=== PATIENT | male | born 1980 | race Caucasian/White ===

== ENCOUNTER 2024-03-29 13:13 | Emergency (ER) | payer SELFPAY ==
--- NOTE | ~2024-03-29 | CT_ITS ---
EXAMINATION: CT ABDOMEN AND PELVIS WITH CONTRAST CLINICAL INFORMATION: RUQ/LUQ pain, N/V COMPARISON: None available. TECHNIQUE: Multidetector volumetric images were obtained from the superior aspect of the liver through the pubic symphysis following administration 85 mL of Omnipaque 350 intravenous contrast. Sagittal and coronal reformatted images were obtained on the technologist's workstation. Oral contrast: No This CT examination was performed using dose optimization techniques as appropriate, variously including the following: *Automated exposure control *Adjustment of mA and/or kV according to patient size (this includes techniques or standardized protocols for targeted exams where dose is matched to indication/reason for exam; i.e. extremities or head) *Use of iterative reconstruction technique DLP: 397 mGy-cm FINDINGS: LUNG BASES: Multiple thin-walled cysts at lung bases, left greater than right with bronchiectasis and architectural distortion of the parenchyma. No acute airspace disease. LIVER, GALLBLADDER, AND BILIARY TREE: Liver is enlarged measuring 22 cm superior-inferior. No focal liver lesion or intrahepatic bile duct dilatation. The gallbladder is unremarkable with no evidence of radiopaque gallstones, gallbladder wall thickening, or obvious pericholecystic inflammatory changes. PANCREAS: Unremarkable. SPLEEN: Unremarkable. ADRENAL GLANDS: Unremarkable. KIDNEYS AND URETERS: The kidneys are normal in size, shape, and attenuation. No hydronephrosis, hydroureter, or calculi seen. No perinephric stranding. BLADDER: Unremarkable. GASTROINTESTINAL TRACT: The small and large bowel are unremarkable. The appendix is unremarkable. ABDOMINAL WALL: No significant hernia is appreciated. LYMPH NODES: Normal. VASCULAR: Unremarkable. PELVIC VISCERA: Unremarkable. OSSEOUS STRUCTURES: Unremarkable. CT/CT abdomen pelvis w IV con IMPRESSION: 1. No acute abnormality CT scan abdomen pelvis. 2. Hepatomegaly. 3. Multiple thin-walled cysts at lung bases, left greater than right with bronchiectasis and architectural distortion of the parenchyma. No acute airspace disease. Fleischner guidelines were followed. Electronically signed by: Bhavesh Hughes MD 03/29/2024 11:11 PM EDT
--- NOTE | ~2024-03-29 | US_ITS ---
EXAMINATION: US ABDOMEN LIMITED CLINICAL INFORMATION: Upper abdominal pain, nausea/vomiting. COMPARISON: None available. TECHNIQUE: Real-time imaging of the right upper quadrant abdominal viscera. FINDINGS: GALLBLADDER: Gallbladder appears somewhat contracted. No gallstones identified. Borderline gallbladder wall thickening measuring 0.4 cm. No right upper quadrant tenderness was reported during the exam. COMMON BILE DUCT: Normal in caliber measuring 0.2 cm in diameter. US/US abdomen limited IMPRESSION: No gallstones identified. Borderline gallbladder wall thickening measuring 0.4 cm, of uncertain clinical significance as the gallbladder appears somewhat contracted. Electronically signed by: Nasim Bone MD 03/29/2024 11:07 PM EDT
--- NOTE | ~2024-03-29 | XR_ITS ---
EXAMINATION: XR CHEST CLINICAL INFORMATION: Chest pain COMPARISON: None available. TECHNIQUE: 2 views of the chest were obtained. FINDINGS: Chronic emphysematous change of the lungs with coarse bronchovascular markings in lungs bilaterally. No focal consolidation. No pleural effusion or pneumothorax. Heart size is normal. Cardiac and mediastinal contours are normal. XR/XR chest 2V IMPRESSION: Chronic emphysematous change of the lungs. No acute abnormality of chest. Electronically signed by: Bhavesh Hughes MD 03/29/2024 03:32 PM EDT RP
[2024-03-29 13:21] VITALS: BP 141/84; PULSE 84; RESP 18; TEMP 37.6; O2SAT 96; BMI 24.5
--- NOTE | 2024-03-29 13:23 | ED.NAVMDI ---
HPI - Nausea/Vomiting/Diarrhea General Chief complaint: General Medical Stated complaint: r side pain Time Seen by Provider: 03/29/24 19:48 Source: patient Mode of arrival: ambulatory Limitations: no limitations History of Present Illness HPI Narrative: Patient is a 43-year-old male who presents emergency department for evaluation. He reports over the past 2 weeks he has been experiencing pain to the upper abdomen/lower costal region, felt to the right and left side. Fall while at rest at times exacerbated with movement and cough. Reports associated nausea, vomiting during episodes of coughing as well as after eating, diarrhea described as softer than normal stools. He has been experiencing a productive cough, at times with green phlegm other times is nonproductive. Has intermittent shortness of breath that this is only felt during coughing episodes. Denies anterior chest pain. Reports a tactile fever but has not checked a temperature, no chills. Denies any known sick contacts. Denies any past medical history. History of cigarette smoking quit approximately 5 years ago, denies recreational drug or alcohol usage. Related Data Previous Rx's ?Medication ?Instructions ?Recorded albuterol sulfate 90 mcg/actuation 2 puff inhalation Q4-6H PRN 03/29/24 aerosol inhaler shortness of breath or wheezing #6.7 grams amoxicillin 875 mg-potassium 1 tab PO Q12H #13 tabs 03/29/24 clavulanate 125 mg tablet Allergies Allergy/AdvReac Type Severity Reaction Status Date / Time No Known Allergies Allergy Verified 03/29/24 13:24 Review of Systems Review of Systems: Yes all other systems are reviewed and are negative [facility] Past Medical History Attestation statement: The following information was validated with the patient. Source: old records reviewed Social History Social History Alcohol intake: former Smoked in Last 30 Days: No Use of substances other than those prescribed or required for medical reasons: No Advance Directives: No Advance Directives Information Provided: No Do you have a plan to hurt others: No Plan Physical Exam Vital Signs: Vital Signs: Last Vital Signs Temp 98.4 F 03/29/24 20:34 Pulse 64 03/29/24 20:34 Resp 12 03/29/24 20:34 BP 148/83 H 03/29/24 20:34 Pulse Ox 97 03/29/24 20:34 O2 Del Method Room Air 03/29/24 20:34 BMI result Body Mass Index 24.5 Appearance: Alert.?Oriented to person, place and time. No acute distress.?Normal affect. Eyes: Pupils equal, round and reactive to light.? ENT: Pharynx normal.?? Neck: Normal inspection.? Neck supple.?? CVS: Heart sounds normal. Normal heart rate and rhythm.? Pulses normal.?? Respiratory: No respiratory distress.? Lung sounds clear to auscultation bilaterally tenderness upon palpation to the bilateral lower chest wall right worse than left?? Abdomen: Soft with right upper quadrant and epigastric tenderness upon palpation Normoactive bowel sounds. No pulsatile mass.?? Skin: Skin warm and dry.? Normal skin color.? No jaundice Extremities: No lower extremity edema.? No calf ttp? Neuro: Moves all extremities spontaneously. Sensation intact bilaterally. CN II-XII intact. No focal neuro deficits. Ambulates with normal steady gait. Course Course Course Narrative: This is an RME: Additional HPI, ROS, PE not included below will be deferred to primary provider. RME assessment and note performed by: Laney Montano PA-C This is a [id number]-male, with no known medical problems, who presents to the ER with complaints of fevers, nausea, vomiting, cough. Plan: Labs, EKG, viral swabs. Reevaluation(s) Reevaluation #1: CT of the abdomen and pelvis without evidence of acute intra-abdominal pathology, hepatomegaly, ultrasound borderline gallbladder wall thickening 0.4 cm, gallbladder appearing somewhat contracted no evidence of stones. Incidental finding on CT of multiple thin-walled cysts at the lung bases left worse than right with bronchiectasis, no acute airspace disease Time: 23:31 Medications Administered Discontinued Medications Generic Name Dose Route Start Last Admin Trade Name Freq PRN Reason Stop Dose Admin Sodium Chloride 1,000 mls @ 999 mls/hr 03/29/24 21:45 03/29/24 22:48 Ns IV 03/29/24 22:45 Infused .Q1H1M THERESA Infusion Iohexol 85 ml 03/29/24 22:09 03/29/24 22:09 Iohexol 350 Mg/Ml 100 Ml Infus..Btl IV 03/29/24 22:10 85 ml ONCE ONE Administration Medical Decision Making Medical Decision Making MDM Narrative: Patient is a 43-year-old male with no reported past medical history presenting to the emergency department for evaluation of upper abdominal/lower bilateral rib pain, nausea, vomiting, diarrhea, cough and subjective fever as per HPI. Overall he appears well and nontoxic, he is afebrile without tachycardia tachypnea or hypoxia. Lung sounds are clear bilaterally, XR is without evidence of infiltrate or consolidation, not consistent with pneumonia, no pneumothorax. Viral panel is negative. On review of serum labs he has a leukocytosis of 12,500 with left shift without anemia or thrombocytopenia. No electrolyte derangement. No MENDY. Elevated LFTs with conjugated hyperbilirubinemia concern for hepatocellular disease versus biliary obstruction he does have mild tenderness to this area but negative Ibarra sign. Plan to obtain CT for further evaluation at this time. High sensitive troponin is below detectable limits, EKG is nonischemic, sinus rhythm with short TN 102 MS, ventricular rate of 77, QTC 441, no ST elevation. Differential Diagnosis Differential Diagnoses: The differential diagnosis associated with the presentation includes (See narrative above) Admission/Observation Consideration of admission/observation: Escalation of care including admission/observation considered (See narrative above in course narrative for further detail) Lab Data MDM Lab Attestation statement: I reviewed the patient's lab results. (See narrative above) 03/29/24 14:03 03/29/24 14:03 Labs: Lab Results 03/29/24 Range/Units 14:03 WBC 12.5 H (4.8-10.8) X10*3/uL RBC 4.54 L (4.60-5.80) X10*6/uL Hgb 14.4 (14.0-18.0) g/dl Hct 40.1 L (42.0-52.0) % MCV 88.3 (80.0-98.0) fL MCH 31.7 (27.0-33.0) pg MCHC 35.9 (31.0-36.0) g/dl RDW 13.3 (11.0-16.0) % Plt Count 218 (160-400) X10*3/uL MPV 10.7 (9.4-12.4) fL Immature Gran % (Auto) 0.4 (0.0-0.4) % Neut % (Auto) 73.8 H (45-73) % Lymph % (Auto) 18.2 L (20-40) % Cataño % (Auto) 5.7 (2-11) % Eos % (Auto) 1.3 (0-4) % Baso % (Auto) 0.6 (0-2) % Lymph # (Auto) 2.3 (1.2-4.9) X10*3/uL Cataño # (Auto) 0.7 (0.1-1.2) X10*3/uL Eos # (Auto) 0.2 (0.0-0.4) X10*3/uL Baso # (Auto) 0.1 (0.0-0.2) X10*3/uL Abs Immat Gran (auto) 0.05 H (0.00-0.03) X10*3/uL Absolute Neuts (auto) 9.2 H (2.0-8.3) x10*3/uL Absolute Nucleated RBC 0.000 (0.0-0.012) X10*3/uL Nucleated RBC % (auto) 0.0 (0.0-0.2) /100WBC Sodium 139 (135-145) mmol/L Potassium 3.4 (3.3-5.1) mmol/L Chloride 104 (96-108) mmol/L Carbon Dioxide 25 (22-29) mmol/L Anion Gap 13 (12-20) BUN 15 (9-16) mg/dL Creatinine 1.06 (0.5-1.4) mg/dL Estim Creat Clear Calc 82.2 Estimated GFR > 60 Random Glucose 122 H (60-115) mg/dL Calcium 9.1 (8.4-10.2) mg/dL Magnesium 2.3 (1.6-2.6) mg/dL Total Bilirubin 1.2 H (0.0-1.0) mg/dL Direct Bilirubin 0.6 H (0.0-0.5) mg/dL AST 93 H (5-37) U/L ALT 82 H (0-40) U/L Alkaline Phosphatase 115 (39-117) U/L Troponin I High Sens < 2.7 (<3.5-35.0) ng/L Total Protein 8.2 H (6.5-8.0) g/dL Albumin 3.6 (3.5-5.0) g/dL Lipase 50 (8-78) U/L Influenza Type A (PCR) NEGATIVE (Negative) Influenza Type B (PCR) NEGATIVE (Negative) RSV RNA Qual (PCR) NEGATIVE (Negative) SARS-CoV-2 RNA (RT-PCR) NEGATIVE (Negative) Independent Interpretation I performed an independent interpretation of an: EKG (See narrative above) and Plain X-Ray (CXR without consolidation or infiltrate) Radiology Impression Discussion of test interpretation with radiology: I have reviewed the radiologist's reading. Radiologist Impression: XR/XR chest 2V IMPRESSION: Chronic emphysematous change of the lungs. No acute abnormality of chest. US/US abdomen limited IMPRESSION: No gallstones identified. Borderline gallbladder wall thickening measuring 0.4 cm, of uncertain clinical significance as the gallbladder appears somewhat contracted. CT/CT abdomen pelvis w IV con IMPRESSION: 1. No acute abnormality CT scan abdomen pelvis. 2. Hepatomegaly. 3. Multiple thin-walled cysts at lung bases, left greater than right with bronchiectasis and architectural distortion of the parenchyma. No acute airspace disease. External Record Review External record reviewed: Outpatient record Discharge Plan Discharge Clinical Impression: Bronchiectasis, Transaminitis Patient Disposition: Home, Self-Care Instructions: Bronchiectasis (ED) Additional Instructions: As discussed the blood work for your liver tests were slightly elevated today, radiographic imaging showed a slight enlargement of the liver, please make your primary care doctor aware of this. Imaging of your lungs reveals bronchiectasis, this is a chronic lung condition that results in buildup of excessive mucus in the lungs, for which a prescription for antibiotic has been sent to your pharmacy. Please speak with your primary care doctor further about this, follow-up with pulmonology Prescriptions: New albuterol sulfate 90 mcg/actuation HFA aerosol inhaler 2 puff inhalation Q4-6H PRN (Reason: shortness of breath or wheezing) Qty: 6.7 0RF amoxicillin-pot clavulanate 875-125 mg tablet 1 tab PO Q12H Qty: 13 0RF Referrals: [facility] [Provider Group] Print Language: Bengali
--- NOTE | 2024-03-29 13:25 | ECG_ITS ---
Test Reason : cp Blood Pressure : / mmHG Vent. Rate : 077 BPM Atrial Rate : 077 BPM P-R Int : 102 ms QRS Dur : 086 ms QT Int : 390 ms P-R-T Axes : 074 067 041 degrees QTc Int : 441 ms Sinus rhythm with short DE Otherwise normal ECG No previous ECGs available Referred By: Laney Montano Electronically Signed By:AMY JACOBSON
[2024-03-29 14:07] LABS: MANUAL DIFF FLAG NO
[2024-03-29 14:10] LABS: Basophils Absolute Auto 0.1 X10*3/uL (0.0-0.2); Basophils Percent Auto 0.6 % (0-2); Eosinophils Absolute Auto 0.2 X10*3/uL (0.0-0.4); Eosinophils Percent Auto 1.3 % (0-4); Hematocrit 40.1 % (42.0-52.0); Hemoglobin 14.4 g/dl (14.0-18.0); Imm Gran Abs Auto 0.05 X10*3/uL (0.00-0.03); Imm Gran Pct Auto 0.4 % (0.0-0.4); Lymphocytes Absolute Auto 2.3 X10*3/uL (1.2-4.9); Lymphocytes Percent Auto 18.2 % (20-40); Mean Corpuscular HGB Conc 35.9 g/dl (31.0-36.0); Mean Corpuscular Hemoglobin 31.7 pg (27.0-33.0); Mean Corpuscular Volume 88.3 fL (80.0-98.0); Mean Platelet Volume 10.7 fL (9.4-12.4); Monocytes Absolute Auto 0.7 X10*3/uL (0.1-1.2); Monocytes Percent Auto 5.7 % (2-11); Neutrophils Absolute Auto 9.2 x10*3/uL (2.0-8.3); Neutrophils Percent Auto 73.8 % (45-73); Platelet Count 218 X10*3/uL (160-400); Red Blood Count 4.54 X10*6/uL (4.60-5.80); Red Cell Distribution Width 13.3 % (11.0-16.0); White Blood Count 12.5 X10*3/uL (4.8-10.8)
[2024-03-29 14:32] LABS: Alanine Aminotransferase 82 U/L (0-40); Albumin Level 3.6 g/dL (3.5-5.0); Alkaline Phosphatase 115 U/L (39-117); Anion Gap 13 (12-20); Aspartate Amino Transferase 93 U/L (5-37); Bilirubin Direct 0.6 mg/dL (0.0-0.5); Bilirubin Total 1.2 mg/dL (0.0-1.0); Blood Urea Nitrogen 15 mg/dL (9-16); Calcium 9.1 mg/dL (8.4-10.2); Carbon Dioxide 25 mmol/L (22-29); Chloride 104 mmol/L (96-108); Creatinine Clr Calc Pharmacy 82.2; Estimated Glomerular Filt Rate > 60; Glucose Random 122 mg/dL (60-115); Lipase 50 U/L (8-78); Magnesium 2.3 mg/dL (1.6-2.6); Potassium 3.4 mmol/L (3.3-5.1); Sodium 139 mmol/L (135-145); Total Protein 8.2 g/dL (6.5-8.0)
[2024-03-29 14:41] LABS: Troponin-I High Sensitivity < 2.7 ng/L (<3.5-35.0)
[2024-03-29 14:49] LABS: Influenza A PCR NEGATIVE (Negative); Influenza B PCR NEGATIVE (Negative); Resp Syncy Virus RNA Qual PCR NEGATIVE (Negative); SARS COV2 PCR INHOUSE NEGATIVE (Negative)
[2024-03-29 20:34] VITALS: BP 148/83; PULSE 64; RESP 12; TEMP 36.9; O2SAT 97
--- NOTE | 2024-03-29 21:28 | PC.NURSE ---
Pt self presents with reports of left flank pain intermittent x 2 weeks. Also reports intermittent mid abd and right flank pain worse with movement. Subjective fever, productive cough, and vomiting. Denies diarrhea. A&Ox3 skin pwd respirations even unlabored. PA to bedside for primary eval.
[2024-03-29] MEDS: 0.9 % Sodium Chloride 1,000 ML 999 ML IV (21:42)
[2024-03-29] MEDS: iohexoL 350 MG/ML 100 ML INFUS..BTL 85 ML IV (22:09)
[2024-03-29 23:57] VITALS: BP 146/81; PULSE 66; RESP 16; O2SAT 97
[2024-03-30] VITALS: BP 0/0; PULSE 0; RESP 0; TEMP -17.7; TEMP 0; O2SAT 0
[2024-03-30] MEDS: Amoxicillin/Potassium Clav 875 MG TABLET PO (00:07)
== END 2024-03-30 | disposition home or self-care (01) ==
PROVIDERS: Physician Assistant Medical; Emergency Provider Emergency Medicine
DX: J47.9 Bronchiectasis, uncomplicated (principal); R10.11 Right upper quadrant pain; R74.01 Elevation of levels of liver transaminase levels; R07.89 Other chest pain; R11.2 Nausea with vomiting, unspecified; R07.81 Pleurodynia; R79.89 Other specified abnormal findings of blood chemistry; Z03.818 Encounter for observation for suspected exposure to other biological agents ruled out; Z79.899 Other long term (current) drug therapy
CPT/HCPCS: 0241U; 36415; 71046; 74177; 76705; 80048; 80076; 83690; 83735; 84484; 85025; 93005; 96360; 99284; 99285; Q9967

== ENCOUNTER 2025-03-29 11:46 | Outpatient (REF) | payer OTHER, SELFPAY ==
--- OUTSIDE RECORDS SUMMARY | 2025-03-29 10:30 | XMS_ITS | Encounter Summary ---
Author Organization [employer] Address [address] [facility] [address] [place] [address] Care Team Providers Care Window Glazier Helper Name Role Phone Sharon Garza SUPERVISING LIBRARIAN Primary Care Provider [phone] Encounter Details Date Type Department Care Team (Late st Contact Info) Description 03/29/2025 10:30 AM EDT Office Visit [facility] [address] [place] [address], [place] [phone] ChanellphilDeysiSharonSOHAM [address] [place], [place] [phone] Encounter for adult wellness visit (Primary Dx); Encounter for immunization Social History Tobacco Use Types Packs/Day Years Used Date Smoking Tobacco: Former Cigarettes Passive Smoke Exposure: Past Smokeless Tobacco: Former Comments:Former Tobacco use x 13 yrs x 1 - 1.5 pkt stopped 6 yrs ago Alcohol Use Standard Drinks/Week Comments Never 0 (1 standard drink = 0.6 oz pur e alcohol) Sex and Gender Information Value Date Recorded Sex Assigned at Male 03/28/2025 9:18 AM EDT Legal Sex Male 9:18 AM EDT Gender Identity Male 03/28/2025 9:18 AM EDT Sexual Orientation Straight 03/28/2025 9: 18 AM EDT documented as of this encounter Last Filed Vital Signs Vital Sign Reading Time Taken Comments Blood Pressure 136/84 03/29/2025 10:21 AM EDT Pulse 65 03/29/2025 10:21 AM EDT Temperature 36.9 C (98.4 F) 03/29/2025 10:21 AM EDT Respiratory Rate 24 03/29/2025 10:21 AM EDT Oxygen Saturation 97% 03/29/2025 10:21 AM EDT Inhaled Oxygen Concentration - - Weight 78.5 kg (173 lb 2 oz) 03/29/2025 10:21 AM EDT Height 169.5 cm (5' 6.73 ) 03/29/2025 10:21 AM E DT Body Mass Index 27.33 03/29/2025 10:21 AM EDT documented in this encounter Plan of Treatment Upcoming Encounters Date Type Department Care Team (Late st Contact Info) Description 04/13/2025 9:30 AM EDT Office Visit [facility] [address] [place] [address] Sharon Garza FNP [address] [place] [address] Pending Results Name Type Priority Associated Diagnoses Date /Time Comprehensive Metabolic Panel Lab Routine Encounter for adult wellness visit 03/29/2025 11:55 AM EDT Lipid Panel, Standard Lab Routine Encounter for adult wellness visit 03/29/2025 11:55 AM EDT Scheduled Orders Name Type Priority Associated Diagnoses Orde r Schedule Hepatitis B Core Antibody, Total Lab Routine Encounter for adult wellness visit Expected: 03/29/2025 (Approximate), Expires: 03/28/2026 TSH Lab Routine Encounter for adult wellness visit Expected: 03/29/2025 (Approximate), Expires: 03/28/2026 Hepatitis B Surface Antibody, Qualitative Lab Routine Encounter for adult wellness visit Expected: 03/29/2025 (Approximate), Expires: 03/28/2026 Hepatitis B surface antigen, EIA Lab Routine Encounter for adult wellness visit Expected: 03/29/2025 (Approximate), Expires: 03/28/2026 Hepatitis C Antibody with Reflex to HCV, RNA, Quantitative, Real-Time PCR Lab Routine Encounter for adult wellness visit Expected: 03/29/2025, Expires: 03/28/2026 HIV-1/2 Antigen and Antibodies, Fourth Generation, with Reflexes Lab Routine Encounter for adult wellness visit Expected: 03/29/2025 (Approximate), Expires: 03/28/2026 Vitamin D, 25-Hydroxy, Total, Immunoassay Lab Routine Encounter for adult wellness visit Expected: 03/29/2025 (Approximate), Expires: 03/28/2026 Chlamydia/N. Gonorrhoeae, PCR, Urine Lab Routine Encounter for adult wellness visit Ordered: 03/29/2025 documented as of this encounter Procedures Procedure Name Priority Date/Time Associated Diagnosis Comments CBC WITH AUTO DIFFERENTIAL Routine 03/29/2025 11:55 AM EDT Encounter for adult wellness visit PSA, TOTAL Routine 03/29/2025 11:55 AM EDT Encounter for adult wellness visit HEMOGLOBIN A1C Routine 03/29/2025 11:55 AM EDT Encounter for adult wellness visit LIPID PANEL, STANDARD Routine 03/29/2025 11:55 AM EDT Encounter for adult wellness visit COMPREHENSIVE METABOLIC PANEL Routine 03/29/2025 11:55 AM EDT Encounter for adult wellness visit documented in this encounter Results * PSA,Total (03/29/2025 11:55 AM EDT) Prostate Specific Antigen 0.68 <0.05 - 4.0 ng/mL [facility] Comment:PSA methodology: Markus Hensley i ChemiluminescentMicroparticle Immunoassay (CMIA) Blood Venous blood specimen / Unknown 03/29/2025 11:55 AM EDT 03/29/2025 1:04 PM EDT us Sharon Garza [facility] LAB BLOOD ORDERABLES Final Res ult [facility] [address] [place] [phone] * Hemoglobin A1c (03/29/2025 11:55 AM EDT) Hemoglobin A1c 5.0 <6.0 % [facility] Comment:Hemoglobin A1C Refer ence Range Adults: 4.8 - 6.0 % Non diabetic: < 6.0 % Goal: < 7.0 %Additional Action Suggested: > 8.0 %Note: Hemoglobin A1c results are invalid for patients with abnormal amounts of HbF. Blood transfusions may impact the HbA1c concentration in the patient sample. Estimated Average Glucose 97 mg/dL [facility] Comment:eAG = Estimated ave rage glucose which is %A1C expressed asaverage glucose, using the formula of the [id number]-[id number] Glucose study (ADAG), Diabetes Care, Vol.31,#8,Feb. 2007 Blood Venous blood specimen / Unknown 03/29/2025 11:55 AM EDT 03/29/2025 1:04 PM EDT us Sharon Garza SUPERVISING LIBRARIAN LAB BLOOD ORDERABLES Final Res ult [facility] [address] [place] [phone] [phone] * (ABNORMAL) CBC auto differential (03/29/2025 11:55 AM EDT) White Blood Count 6.8 4.8 - 10.8 X10*3/uL [facility] Red Blood Count 4.77 4.60 - 5.80 X10*6/uL [facility] Hemoglobin 14.8 14.0 - 18.0 g/dl [facility] Hematocrit 42.7 42.0 - 52.0 % [facility] Mean Corpuscular Volume 89.5 80.0 - 98.0 fL [facility] Mean Corpuscular Hemoglobin 31.0 27.0 - 33.0 pg [facility] Mean Corpuscular HGB Conc 34.7 31.0 - 36.0 g/dl [facility] Red Cell Distribution Width 13.3 11.0 - 16.0 % [facility] Platelet Count 152(L) 160 - 400 X10*3/uL [facility] Mean Platelet Volume 11.9 9.4 - 12.4 fL [facility] Neutrophils Percent Auto 63.5 45 - 73 % [facility] Imm Gran Pct Auto 0.1 0.0 - 0.4 % [facility] Lymphocytes Percent Auto 24.3 20 - 40 % [facility] Monocytes Percent Auto 8.9 2 - 11 % [facility] Eosinophils Percent Auto 2.5 0 - 4 % [facility] Basophils Percent Auto 0.7 0 - 2 % [facility] NRBC Pct Auto 0.0 0.0 - 0.2 /100WBC [facility] Neutrophils Absolute Auto 4.3 2.0 - 8.3 x10*3/uL [facility] Imm Gran Abs Auto 0.01 0.00 - 0.03 X10*3/uL [facility] Lymphocytes Absolute Auto 1.7 1.2 - 4.9 X10*3/uL [facility] Monocytes Absolute Auto 0.6 0.1 - 1.2 X10*3/uL [facility] Eosinophils Absolute Auto 0.2 0.0 - 0.4 X10*3/uL [facility] Basophils Absolute Auto 0.1 0.0 - 0.2 X10*3/uL [facility] NRBC Abs Auto 0.000 0.0 - 0.012 X10*3/uL [facility] Blood Venous blood specimen / Unknown 03/29/2025 11:55 AM EDT 03/29/2025 1:04 PM EDT Sharon ROUSSEAU LAB BLOOD ORDERABLES Final Res ult Performing Organization Address City/State/[facility] Co de Phone Number [facility] [address] [place] [phone] documented in this encounter Visit Diagnoses Diagnosis Encounter for adult wellness visit- Primary Encounter for immunization documented in this encounter Care Teams Window Glazier Helper Relationship Specialty Start Date End Date Sharon Garza FNP [address] [place] [phone] PCP - General Family Medicine 03/25/25 documented as of this encounter
[2025-03-29 13:09] LABS: MANUAL DIFF FLAG NO
[2025-03-29 13:25] LABS: Hematocrit 42.7 % (42.0-52.0); Hemoglobin 14.8 g/dl (14.0-18.0); Imm Gran Abs Auto 0.01 X10*3/uL (0.00-0.03); Imm Gran Pct Auto 0.1 % (0.0-0.4); Lymphocytes Absolute Auto 1.7 X10*3/uL (1.2-4.9); Mean Corpuscular HGB Conc 34.7 g/dl (31.0-36.0); Mean Corpuscular Hemoglobin 31.0 pg (27.0-33.0); Mean Corpuscular Volume 89.5 fL (80.0-98.0); NRBC Abs Auto 0.000 X10*3/uL (0.0-0.012); NRBC Pct Auto 0.0 /100WBC (0.0-0.2); Platelet Count 152 X10*3/uL (160-400); Red Blood Count 4.77 X10*6/uL (4.60-5.80); White Blood Count 6.8 X10*3/uL (4.8-10.8)
[2025-03-29 13:30] LABS: Hemoglobin A1C 122.6388 umol/L; Total Hemoglobin (HGBA1C) 3884.0301 umol/L
[2025-03-29 14:03] LABS: Alanine Aminotransferase 152 U/L (0-40); Albumin Level 3.9 g/dL (3.5-5.0); Alkaline Phosphatase 158 U/L (39-117); Anion Gap 12 (12-20); Aspartate Amino Transferase 174 U/L (5-37); Blood Urea Nitrogen 15 mg/dL (9-16); Calcium 9.1 mg/dL (8.4-10.2); Carbon Dioxide 31 mmol/L (22-29); Chloride 102 mmol/L (96-108); Cholesterol 127 mg/dL (<200); Estimated Glomerular Filt Rate > 60; HDL Cholesterol 36 mg/dL (>40); Potassium 4.5 mmol/L (3.3-5.1); Sodium 140 mmol/L (135-145); Total Protein 8.2 g/dL (6.5-8.0); Triglycerides 175 mg/dL (<150)
[2025-03-29 14:16] LABS: Prostate Specific Antigen 0.68 ng/mL (<0.05-4.0)
[2025-03-29 14:18] LABS: Thyroid Stimulating Hormone 3.62 uIU/mL (0.32-4.0)
--- OUTSIDE RECORDS SUMMARY | 2025-03-29 14:18 | XMS_ITS | Encounter Summary ---
Author Organization [employer] [facility] Address [address] [place] [address] [address] [place] [address] Care Team Providers Care Meat Boner And Slicer Name Role Phone Sharon Garza Primary Care Provider [phone] Encounter Details Date Type Department Care Team (Latest Contact Info) Description 03/29/2025 Travel Social History Tobacco Use Types Packs/Day Years [...] AM EDT documented as of this encounter Plan of Treatment Upcoming Encounters Date Type Department Care Team (Late st Contact Info) Description 04/13/2025 9:30 AM EDT Office Visit [facility] [address] [place] [phone] Sharon Garza FNP [address] [place] [address] documented as of this encounter Visit Diagnoses Not on filedocumented in this encounter Care Teams Meat Boner And Slicer Relationship Specialty Start Date End Date Sharon Garza FNP [address] [place] [address] PCP - General Family Medicine 03/25/25 documented as of this encounter
--- OUTSIDE RECORDS SUMMARY | 2025-03-29 14:18 | XMS_ITS | Clinical Summary ---
Author Organization [employer] Address [address] [place] [address] [address] [place] [address] Care Team Providers Care Emergency Room Specialist Name Role Phone Sharon Garza Primary Care Provider [phone] Allergies No known active allergies Medications fluticasone (Flonase) 50 MCG/ACT nasal spray Administer 1 spray into each nostril Once per day. Shake gently. Before first use, prime pump. After use, clean tip and replace cap. 16 g 2 03/29/20 25 026 Active albuterol 108 (90 Base) MCG/ACT inhaler Inhale 2 puffs every 4 (four) hours if needed for wheezing. 18 g 1 03/29/20 25 Active albuterol 108 (90 Base) MCG/ACT inhaler Inhale 2 puffs every 4 (four) hours if needed for wheezing. 03/30/20 24 025 Discontinued(Re order (will not trigger notification to Pharmacy)) Active Problems No known active problems Encounters Date Type Department Care Team Description 03/29/2025 10:30 AM EDT Office Visit [facility] [address] [place] [address] Sharon Garza FNP Encounter for adult wellness visit (Primary Dx); Encounter for immunization 03/29/2025 Travel 03/25/2025 Telephone [facility] [address] [place], [place] [phone] Sharon Garza FNP CHARTPREP 03/22/2025 Patient Outreach [facility] [address] [place] [address] Sharon Garza FNP Pre-visit Planning ([facility] unable to reach [facility]) from Last 3 Months Immunizations Immunization Administration Dates Next Due Tdap 03/29/2025 Family History Medical History Relation Name Comments No Known Problems Father Cancer Mother No Known Problems Sister Relation Name Status Comments Father Mother Sister Social History Tobacco Use Types Packs/Day Years [...] Orientation Straight 03/28/2025 9: 18 AM EDT Last Filed Vital Signs Vital Sign Reading [...] Mass Index 27.33 03/29/2025 10:21 AM EDT Plan of Treatment Upcoming Encounters Date Type Department Care Team (Late st Contact Info) Description 04/13/2025 9:30 AM EDT Office Visit [facility] MED[facility] [address] [place] [address] Sharon Garza FNP [address] [place] [address] Health Maintenance Due Date Last Done Comments CT Colonography 1978 Colonoscopy 1978 Colorectal Cancer Screening 1978 Depression Screening 1978 FIT DNA/Cologuard 1978 FIT 1978 FOBT 1978 HIV Screening 1978 Lipid Panel 1978 03/29/2025 SDOH Screening 1978 Sigmoidoscopy 1978 Disability Screening 1978 Family Planning (PISQ) 1993 Hepatitis C Screening 1996 Hepatitis B Vaccines (1 of 3 - 19+ 3-dose series) 1997 COVID-19 Vaccine (1 - 4-2 5 season) 2025 Influenza Vaccine (#1) 2025 Alcohol/Substance Use Screening 03/29/2026 Tobacco Screening 03/29/2026 03/29/2025 Zoster Vaccines (1 of 2) 2028 DTaP/Tdap/Td Vaccines (2 - T d or Tdap) 03/29/2035 03/29/2025 RSV Patients and Pa tients Aged 60 years or older (1 - 1-dose 75+ series) 2053 HIB Vaccines Aged Out No longer eligi ble based on patient's age to complete this topic HPV Vaccines Aged Out No longer eligi ble based on patient's age to complete this topic Hepatitis A Vaccines Aged Out No long er eligible based on patient's age to complete this topic IPV Vaccines Aged Out No longer eligi ble based on patient's age to complete this topic Meningococcal B Vaccine Aged Out No l onger eligible based on patient's age to complete this topic Meningococcal Vaccine Aged Out No marianne kristin eligible based on patient's age to complete this topic Pneumococcal Vaccine: Pediat rics (0 to 5 Years) and At-Risk Patients (6 to 49) Years Aged Out No longer eligi ble based on patient's age to complete this topic RSV under 20 months Aged Out No longe r eligible based on patient's age to complete this topic Rotavirus Vaccines Aged Out No longer eligible based on patient's age to complete this topic Procedures Procedure Name Priority Date/Time Associated Diagnosis Comments PSA, TOTAL Routine 03/29/2025 11:55 AM EDT Encounter for adult wellness visit HEMOGLOBIN A1C Routine 03/29/2025 11:55 AM EDT Encounter for adult wellness visit LIPID PANEL, STANDARD Routine 03/29/2025 11:55 AM EDT Encounter for adult wellness visit CBC WITH AUTO DIFFERENTIAL Routine 03/29/2025 11:55 AM EDT Encounter for adult wellness visit COMPREHENSIVE METABOLIC PANEL Routine 03/29/2025 11:55 AM EDT Encounter for adult wellness visit from Last 3 Months Results * (ABNORMAL) CBC auto differential (03/29/2025 11:55 AM EDT) White Blood Count 6.8 4.8 - 10.8 X10*3/uL [facility] Red Blood Count 4.77 4.60 - 5.80 X10*6/uL [facility] Hemoglobin 14.8 14.0 - 18.0 g/dl [facility] Hematocrit 42.7 42.0 - 52.0 % [facility] Mean Corpuscular Volume 89.5 80.0 - 98.0 fL [facility] Mean Corpuscular Hemoglobin 31.0 27.0 - 33.0 pg [facility] Mean Corpuscular HGB Conc 34.7 31.0 - 36.0 g/dl [facility] Red Cell Distribution Width 13.3 11.0 - 16.0 % [facility] Platelet Count 152(L) 160 - 400 X10*3/uL [facility] Mean Platelet Volume 11.9 9.4 - 12.4 fL [facility] Neutrophils Percent Auto 63.5 45 - 73 % [facility] Imm Gran Pct Auto 0.1 0.0 - 0.4 % [facility] Lymphocytes Percent Auto 24.3 20 - 40 % [facility] Monocytes Percent Auto 8.9 2 - 11 % [facility] Eosinophils Percent Auto 2.5 0 - 4 % [facility] Basophils Percent Auto 0.7 0 - 2 % [facility] NRBC Pct Auto 0.0 0.0 - 0.2 /100WBC [facility] Neutrophils Absolute Auto 4.3 2.0 - 8.3 x10*3/uL [facility] Imm Gran Abs Auto 0.01 0.00 - 0.03 X10*3/uL [facility] Lymphocytes Absolute Auto 1.7 1.2 - 4.9 X10*3/uL [facility] Monocytes Absolute Auto 0.6 0.1 - 1.2 X10*3/uL [facility] Eosinophils Absolute Auto 0.2 0.0 - 0.4 X10*3/uL [facility] Basophils Absolute Auto 0.1 0.0 - 0.2 X10*3/uL [facility] NRBC Abs Auto 0.000 0.0 - 0.012 X10*3/uL [facility] Blood Venous blood specimen / Unknown 03/29/2025 11:55 AM EDT 03/29/2025 1:04 PM EDT [facility] Final Res ult Performing Organization Address City/[facility]/ZIP Co de Phone Number [facility] [address] [place] [address] [phone] * PSA,Total (03/29/2025 11:55 AM EDT) Prostate Specific Antigen 0.68 <0.05 - 4.0 ng/mL [facility] Comment:PSA methodology: Markus Hensley i ChemiluminescentMicroparticle Immunoassay (CMIA) Blood Venous blood specimen / Unknown 03/29/2025 11:55 AM EDT 03/29/2025 1:04 PM EDT [facility] BLOOD ORDERABLES Final Res ult Performing Organization Address City/[facility]/ZIP Co de Phone Number [facility] [address] [place] [phone] [phone] * Hemoglobin A1c (03/29/2025 11:55 AM EDT) Hemoglobin A1c 5.0 <6.0 % [facility] Comment:Hemoglobin A1C Refer ence Range Adults: 4.8 - 6.0 % Non diabetic: < 6.0 % Goal: < 7.0 %Additional Action Suggested: > 8.0 %Note: Hemoglobin A1c results are invalid for patients with abnormal amounts of HbF. Blood transfusions may impact the HbA1c concentration in the patient sample. Estimated Average Glucose 97 mg/dL [facility] Comment:eAG = Estimated ave rage glucose which is %A1C expressed asaverage glucose, using the formula of the [id number] Glucose study (ADAG), Diabetes Care, Vol.31,#8,Feb. 2007 Blood Venous blood specimen / Unknown 03/29/2025 11:55 AM EDT 03/29/2025 1:04 PM EDT us Sharon [facility] LAB BLOOD ORDERABLES Final Res ult [facility] [address] [place] [address] [phone] from Last 3 Months Insurance [facility] 3 Care Teams Emergency Room Specialist Relationship Specialty Start Date End Date Sharon Garza FNP [address] [place] [address] PCP - General Family Medicine 03/25/25
--- OUTSIDE RECORDS SUMMARY | 2025-03-29 14:18 | XMS_ITS | Encounter Summary ---
Author Organization [employer] [facility] Address [address] [facility] [address] [place] [address] Care Team Providers Care Heating And Blending Supervisor Name Role Phone Sharon Garza [facility] Primary Care Provider [phone] Reason for Visit * Reason Onset Date Comments CHARTPREP 03/25/2025 Encounter Details Date Type Department Care Team (Late st Contact Info) Description 03/25/2025 Telephone [facility] MED[facility]INE [address] [place] [address] Sharon Garza FNP [address] [place] [address] CHARTPREP Social History Tobacco Use Types Packs/Day Years Used Date Smoking Tobacco: Never Assessed Sex and Gender Information Value Date Recorded Sex Assigned at Male 03/28/2025 9:18 AM EDT Legal Sex Male 9:18 AM EDT Gender Identity Male 03/28/2025 9:18 AM EDT Sexual Orientation Straight 03/28/2025 9: 18 AM EDT documented as of this encounter Miscellaneous Notes * Telephone Encounter - Stefani Woodruff MA - 03/25/2025 12:46 PM EDT Chart Prep Labs: not applicable Images: not applicable Referrals: not applicable Vaccines due: Covid, Flu, Tdap, and Hep B Screenings: colonoscopy Overdue care gaps: SBIRT, SDOH, PHQ-9, TAYLOR-7, Oral health screening, Disability screen, and Tobacco documented in this encounter Plan of Treatment Upcoming Encounters Date Type Department Care Team (Late st Contact Info) Description 04/13/2025 9:30 AM EDT Office Visit [facility] [address] [place] [address] Sharon Garza FNP [address] [place] [address] documented as of this encounter Visit Diagnoses Not on filedocumented in this encounter Care Teams Heating And Blending Supervisor Relationship Specialty Start Date End Date Sharon Garza FNP [address] [place] [address] PCP - General Family Medicine 03/25/25 documented as of this encounter
[2025-03-29 14:49] LABS: CT PCR Urine NOT DETECTED (Not Detect.); NG PCR Urine NOT DETECTED (Not Detect.)
[2025-03-30 04:00] LABS: HBS Num1 379.55 mIU/mL (0-7.99); HBc Num1 0.06 S/CO (0.00-0.79); HBsAGNum1 0.44 S/CO (0.00-0.99); HIV Num 1 0.05 S/CO (0.00-0.99); Hepatitis B Surface Antigen Negative (Negative); ~HepC Num1 12.89 S/CO (0.00-0.79); ~Hepatitis B Surface Antibody REACTIVE (Nonreactive); ~Hepatitis C Antibody Reactive (Nonreactive)
[2025-03-31 17:14] LABS: HCV Log PCR 6.54 Log IU/mL (NOT DETECTED); HepC Viral Load 3440000 IU/mL (NOT DETECTED)
== END 2025-03-29 11:47 | disposition home or self-care (01) ==
LOC: HO.HHCL 11:46
PROVIDERS: PCP Nurse Practitioner Family; Visit Provider Nurse Practitioner Family
DX: Z00.00 Encounter for general adult medical examination without abnormal findings (principal); Z11.3 Encounter for screening for infections with a predominantly sexual mode of transmission; Z11.8 Encounter for screening for other infectious and parasitic diseases; Z11.59 Encounter for screening for other viral diseases; Z11.4 Encounter for screening for human immunodeficiency virus [HIV]
CPT/HCPCS: 36415; 80053; 80061; 82306; 83036; 84153; 84443; 85025; 86704; 86706; 86803; 87340; 87389; 87491; 87522; 87591

== ENCOUNTER 2025-04-13 10:37 | Outpatient (REF) | payer OTHER, SELFPAY ==
--- NOTE | ~2025-04-13 | XR_ITS ---
EXAMINATION: XR CHEST CLINICAL INFORMATION: coughing with phlem T SOB COMPARISON: 03/29/2024 TECHNIQUE: 2 views of the chest were obtained. FINDINGS: Coarse reticular markings are again identified in the middle third right lung zone and left lower lung zone, stable to slightly increased. There is a circular area just cephalad to the right hilum 3 cm in diameter likely in the posterior right upper lobe Heart size is within normal limits. XR/XR chest 2V IMPRESSION: There is a new 3 cm circular area in the right suprahilar region likely in the posterior's right upper lobe that could represent a new area of cavitation or other cystic change. This could be infectious or postinfectious. Postinfectious is favored given the lack of an air-fluid level within the lesion and no central high attenuation. Consider CT chest without contrast if felt to be clinically relevant. Although not in the apex of the lung, TB should be a consideration. Cavitating neoplasm is also low in the differential. Chronic coarse interstitial markings are stable to slightly increased from x-ray one year ago Electronically signed by: Grant Luz MD 04/13/2025 11:02 AM EDT
--- OUTSIDE RECORDS SUMMARY | 2025-04-13 09:30 | XMS_ITS | Encounter Summary ---
Author Organization [employer] Address [address] [facility] 7t [place] [address] Care Team Providers Care Director Digital Marketing Name Role Phone Sharon Garza [facility] Primary Care Provider [phone] Encounter Details Date Type Department Care Team (Late st Contact Info) Description 04/13/2025 9:30 AM EDT Office Visit [facility] [address] [place], [place] [phone] Sharon Garza FNP [address] [place], [place] [phone] Dyspnea, unspecified type (Primary Dx) Social History Tobacco Use Types Packs/Day Years [...] is your housing situation today? I have davarnav fountain 04/13/[address] you [...] Styles [place] documented as of this encounter Plan of Treatment Not on file documented as of this encounter Procedures Procedure Name Priority Date/Time Associated Diagnosis Comments XR CHEST 2 VIEWS Routine 04/13/2025 10:4 0 AM EDT Dyspnea, unspecified type documented in this encounter Results * XR Chest 2 Views (04/13/2025 10:40 AM EDT) Anatomical Region Laterality Modality Chest Radiographic Jo ging 04/13/2025 10:4 0 AM EDT Narrative 04/13/2025 11:05 AM EDT [address] [address] XRay Report Signed Patient: Blake Norris MR#: [id number] 48 : 1980 Acct:[id number] Age/Sex: 44 / M ADM Date: 04/13/25 Loc: [facility] Attending Dr: Sharon ROUSSEAU Ordering Physician: Sharon Garza Date of Service: 04/13/25 Procedure(s): XR chest 2V Accession Number(s): [id number] cc: Sharon Garza Reason for Exam: coughing [...] Grant Luz MD 04/13/2025 11:02 AM EDT RP Dictated By: Grant Luz MD Signed By: <Electronically signed by Grant Luz MD in OV> 04/13/25 1102 DD/ 1040 TD/TT: 04/13/25 1050 Development System Efficiency Manager: Procedure Note Donotuseinterpreter, Image - 04/13/2025 [place] [address] XRay Report Signed Patient: Lucia Norris#: [id number] 48 : 1980Acct:[id number] Age/Sex: 44 / MADM Date: 04/13/25 Loc: .[facility] Attending Dr: Sharon ROUSSEAU Ordering Physician: Sharon Garza Date of Service: 04/13/25 Procedure(s): XR chest 2V Accession Number(s): [id number] cc: Sharon Garza Reason for Exam: coughing [...] Grant Luz MD 04/13/2025 11:02 AM EDT RP Dictated By: Grant Luz MD Signed By: <Electronically signed by Grant Luz MD in OV> 04/13/25 1102 DD/ 1040 TD/TT: 04/13/25 1050 Development System Efficiency Manager: Result [facility] Sharon ROUSSEAU IMG XR PROCEDURES Final Result documented in this encounter Visit Diagnoses Diagnosis Dyspnea, unspecified type- Primary documented in this encounter Care Teams Director Digital Marketing Relationship Specialty Start Date End Date Sharon Garza FNP [address] [place] [phone] PCP - General Family Medicine 03/25/25 documented as of this encounter
--- OUTSIDE RECORDS SUMMARY | 2025-04-13 13:15 | XMS_ITS | Encounter Summary ---
Author Organization [employer] Address [address] [facility] 7t [place] [address] Care Team Providers Care Hog Sawyer Name Role Phone Sharon Garza [employer]CH[employer] Primary Care Provider [phone] Reason for Visit * Reason Onset Date Comments Chart Prep 04/12/2025 Encounter Details Date Type Department Care Team (Late st Contact Info) Description 04/12/2025 Telephone [facility] [address] [place], [place] [phone] Sharon Garza FNP [address] [facility] [place] [address] Chart Prep Social History Tobacco Use Types Packs/Day Years [...] encounter Miscellaneous Notes * Telephone Encounter - Chino Curran [place] - 04/12/2025 9:23 AM EDT Chart Prep Labs: done Images: not applicable Referrals:Gastroenterology ([facility]) needs to book appt.Ref letter in. Vaccines due: Covid, Flu, and Hep B Screenings: colonoscopy Overdue care gaps: SDOH, PHQ-9, TAYLOR-7, Disability screen, and Tobacco documented in this encounter Plan of Treatment Not on file documented as of this encounter Visit Diagnoses Not on filedocumented in this encounter Care Teams Hog Sawyer Relationship Specialty Start Date End Date Sharon Garza FNP [address] [place] [phone] PCP - General Family Medicine 03/25/25 documented as of this encounter
--- OUTSIDE RECORDS SUMMARY | 2025-04-13 13:15 | XMS_ITS | Encounter Summary ---
Author Organization [employer] Address [address] [facility] [address] [place] [address] Care Team Providers Care Sash Installer Name Role Phone Sharon Garza [facility] Primary Care Provider [phone] Encounter Details Date Type Department Care Team (Latest Contact Info) Description 04/13/2025 Travel Social History Tobacco Use Types Packs/Day [...] AM EDT documented as of this encounter Functional Status * Over the [...] on filedocumented in this encounter Care Teams Sash Installer Relationship Specialty Start Date End Date Sharon Garza FNP [address] [place] [phone] PCP - General Family Medicine 03/25/25 documented as of this encounter
--- OUTSIDE RECORDS SUMMARY | 2025-04-13 13:15 | XMS_ITS | Clinical Summary ---
Author Organization [employer] Address [address] [facility] [address] [place] [address] Care Team Providers Care Health Care Marketing Manager Name Role Phone Sharon Garza Primary Care Provider [phone] Allergies No known active allergies Medications fluticasone (Flonase) 50 MCG/ACT nasal sprayIndicatio ns:Dyspnea, unspecified type Administer 1 spray into each nostril Once per day. Shake gently. Before first use, prime pump. After use, clean tip and replace cap. 16 g 2 03/29/20 25 026 Active albuterol 108 (90 Base) MCG/ACT inhalerIndicat ions:Dyspnea, unspecified type Inhale 2 puffs every 4 (four) hours if needed for wheezing. 18 g 1 03/29/20 25 Active loratadine (Claritin) 10 MG tablet Take 1 tablet (10 mg) by mouth Once per day. 90 tablet 3 03/29/20 25 026 Active albuterol 108 (90 Base) MCG/ACT inhaler Inhale 2 puffs every 4 (four) hours if needed for wheezing. 03/30/20 24 025 Discontinued(Re order (will not trigger notification to Pharmacy)) Active Problems Problem Noted Date Diagnosed Date Dyspnea, unspecified 04/13/2025 Encounters Date Type Department Care Team Description 04/13/2025 9:30 AM EDT Office Visit [facility] [address] [place], [place] [phone] Sharon Garza FNP Dyspnea, unspecified type (Primary Dx) 04/13/2025 Travel 04/12/2025 Telephone [facility] [address] [place], [place] [phone] Sharon Garza FNP Chart Prep 03/29/2025 10:30 AM EDT Office Visit [facility] [address] [place] [phone] Sharon Garza FNP Encounter for adult wellness visit (Primary Dx); Encounter for immunization; Dyspnea, unspecified type; Overweight; Dietary counseling; Exercise counseling 03/29/2025 Orders Only [address] [address] Sharon Garza FNP 03/29/2025 Travel 03/25/[address] [address] Sharon Garza FNP CHARTPREP 03/22/2025 Patient Outreach [facility] [address] [place] [address] Sharon Garza FNP Pre-visit Planning ([facility] unable to reach [facility]) from Last 3 Months Immunizations Immunization [...] t he electric, gas, oil or water [employer] threatened to shut off services in your [...] Mass Index 27.06 04/13/2025 9:48 AM EDT Plan of Treatment Health Maintenance Due Date Last Done Comments CT Colonography 1978 Colonoscopy 1978 Colorectal Cancer Screening 1978 Depression Screening 1978 FIT DNA/Cologuard 1978 FIT 1978 FOBT 1978 Sigmoidoscopy 1978 Disability Screening 1978 Family Planning (PISQ) 1993 Hepatitis B Vaccines (1 of 3 - 19+ 3-dose series) 1997 COVID-19 Vaccine (2023-2 5 season) 2025 Influenza Vaccine (#1) 2025 Alcohol/Substance Use Screening 03/29/2026 03/29/2025 SDOH Screening 04/13/2026 04/13/2025 Tobacco Screening 04/13/2026 04/13/2025 Zoster Vaccines (1 of 2) 2028 Lipid Panel 03/29/2030 03/29/2025 DTaP/Tdap/Td Vaccines (2 - T d or Tdap) 03/29/2035 03/29/2025 RSV Patients and Patients Aged 60 years or older (1 - 1-dose 75+ series) 2053 HIV Screening Completed 03/29/2025 Hepatitis C Screening Completed 03/29/2025 , 03/29/2025 HIB Vaccines Aged Out No longer eligi [...] age to complete this topic Pneumococcal Vaccine: Pediatrics (0 to 5 Years) and At-Risk Patients (6 to 49) Years Aged Out No longer eligible b ased on patient's age to complete this topic RSV under 20 months Aged Out No longe r eligible based on patient's age to complete this topic Rotavirus Vaccines Aged Out No longer eligible based on patient's age to complete this topic Procedures Procedure Name Priority Date/Time Associated Diagnosis Comments XR CHEST 2 VIEWS Routine 04/13/2025 10:4 0 AM EDT Dyspnea, unspecified type HEPATITIS C VIRAL RNA, QUANTITATIVE, REAL-TIME PCR Routine 03/29/2025 11:55 AM EDT PSA, TOTAL Routine 03/29/2025 11:55 AM EDT Encounter for adult wellness visit HEMOGLOBIN A1C Routine 03/29/2025 11:55 AM EDT Encounter for adult wellness visit VITAMIN D,25-OH,TOTAL,IA Routine 03/29/2025 11:55 AM EDT Encounter for adult wellness visit LIPID PANEL, STANDARD Routine 03/29/2025 11:55 AM EDT Encounter for adult wellness visit HIV 1/2 ANTIGEN/ANTIBODY, FOURTH GENERATION W/RFL Routine 03/29/2025 11:55 AM EDT Encounter for adult wellness visit CBC WITH AUTO DIFFERENTIAL Routine 03/29/2025 11:55 AM EDT Encounter for adult wellness visit HEPATITIS C AB W/REFL TO HCV RNA, QN, PCR Routine 03/29/2025 11:55 AM EDT Encounter for adult wellness visit HEPATITIS B SURFACE ANTIGEN, EIA Routine 03/29/2025 11:55 AM EDT Encounter for adult wellness visit HEPATITIS B SURFACE ANTIBODY, QUALITATIVE Routine 03/29/2025 11:55 AM EDT Encounter for adult wellness visit TSH Routine 03/29/2025 11:55 AM EDT Encounter for adult wellness visit HEPATITIS B CORE AB TOTAL Routine 03/29/2025 11:55 AM EDT Encounter for adult wellness visit COMPREHENSIVE METABOLIC PANEL Routine 03/29/2025 11:55 AM EDT Encounter for adult wellness visit CHLAMYDIA/TRICHOMONAS/ NEISSERIA GONORRHOEAE, PCR, URINE Routine 03/29/2025 11:55 AM EDT Encounter for adult wellness visit from Last 3 Months Results * XR Chest 2 Views (04/13/2025 10:40 AM EDT) Anatomical Region Laterality Modality Chest Radiographic Jo ging 04/13/2025 10:4 0 AM EDT Narrative 04/13/2025 11:05 AM EDT [address] [address] XRay Report Signed Patient: Blake Norris MR#: [id number] 48 : 1980 Acct:[id number] Age/Sex: 44 / M ADM Date: 04/13/25 Loc: [facility] Attending Dr: Sharon ROUSSEAU Ordering Physician: Okhipo,Sharon CLERK OF SCALES Date of Service: 04/13/25 Procedure(s): XR chest 2V Accession Number(s): [id number] cc: Sharon Garza Reason for Exam: coughing [...] 04/13/25 1102 DD/ 1040 TD/TT: 04/13/25 1050 Bottom Hoop Driver: Procedure Note Donotuseinterpreter, Image - 04/13/[address] [address] XRay Report Signed Patient: Lucia Norris#: [id number] 48 : 1980Acct:[id number] Age/Sex: 44 / MADM Date: 04/13/25 Loc: .[facility] Attending Dr: Sharon ROUSSEAU Ordering Physician: Sharon Garza Date of Service: 04/13/25 Procedure(s): XR chest 2V Accession Number(s): [id number] cc: Sharon Garza SOHAM Reason for Exam: coughing with phlem T [...] 04/13/25 1102 DD/ 1040 TD/TT: 04/13/25 1050 Bottom Hoop Driver: Sharon Luaphil MEDINAP IMG XR PROCEDURES Final Result * Chlamydia/N. Gonorrhoeae, PCR, Urine (03/29/2025 11:55 AM EDT) CT PCR, Urine NOT DETECTED Not Detect. [facility] Comment:A not detected test result does not exclude the possibilityof infection because test results can be affected byimproper specimen collection, concurrent antibiotic therapy,or the number of organisms in the specimen which may bebelow the sensitivity of the test. As with many diagnostictests, results from the Xpert CT/NG assay should beinterpreted in conjunction with other laboratory andclinical data available to the clinician.The Xpert CT/NG assay should not be used for the evaluationof suspected sexual abuse or for other medico-legalindications. Additional testing is recommended in anycircumstance when false positive or false negative resultscould lead to adverse medical, social or psychologicalconsequences. NG PCR, Urine NOT DETECTED Not Detect. [facility] Comment:A not detected test result does not exclude the possibilityof infection because test results can be affected byimproper specimen collection, concurrent antibiotic therapy,or the number of organisms in the specimen which may bebelow the sensitivity of the test. As with many diagnostictests, results from the Xpert CT/NG assay should beinterpreted in conjunction with other laboratory andclinical data available to the clinician.The Xpert CT/NG assay should not be used for the evaluationof suspected sexual abuse or for other medico-legalindications. Additional testing is recommended in anycircumstance when false positive or false negative resultscould lead to adverse medical, social or psychologicalconsequences. Urine (Urine, Random) 03/29/2025 11:55 AM EDT 03/29/2025 1:19 PM EDT us Sharon Garza [facility] LAB URINE ORDERABLES Final Res ult [facility] [address] [place] [phone] * (ABNORMAL) Vitamin D, 25-Hydroxy, Total, Immunoassay (03/29/2025 11:55 AM EDT) Vitamin D 25-OH Total 26.9(L) >30 ng/mL [facility] Comment: Health Based Reference Values*< 20 ng/mL Nfboyzzlk55-13 ng/mL Insufficient> 30 ng/mL Sufficient*Erin PULIDO. N Engl J Med. 2007;357:266-280There is no well-established upper level of normal vitamin Dlevels. Some laboratories use 50 ng/mL as an upper limit ofnormal. However, toxicity is patient-dependent and may occurat any level. Careful correlation with the patient'spresentation is necessary and, if there is concern forvitamin D toxicity, treatment should be consideredirrespective of the serum level.Care must be taken in interpreting Vitamin D results fromdifferent laboratories and methodologies. Published datademonstrated that results from patients undergoinghemodialysis may show a negative bias when tested withvarious automated 25-OH vitamin D assays when compared toLC-MS/MS.When testing samples from patients whose predominant form ofVitamin D is Vitamin D2, such as patients receiving VitaminD2 supplementation, results that are subtherapeutic shouldbe confirmed with another method such as LC-MS/MS. Blood Venous blood specimen / Unknown 03/29/2025 11:55 AM EDT 03/29/2025 1:04 PM EDT [facility] LAB BLOOD ORDERABLES Final Res ult [facility] [address] [place] [phone] * (ABNORMAL) Hepatitis C Viral RNA, Quantitative, Real-Time PCR (03/29/2025 11:55 AM EDT) Hepatitis C Viral Load 1108233(A ) NOT DETECTED IU/mL [facility] HCV Log PCR 6.54(A) NOT DETECTED Log IU/mL [facility] Comment:For additional infor mation, please refer tohttp://education.[employer]/faq/TPR62e6(This link is being provided for informational/educational purposes only.)THIS TEST WAS PERFORMED AT:[employer] [place] [phone] DILLON MD 03/29/2025 11:5 5 AM EDT 03/30/2025 10:37 AM EDT [facility] Final Res ult [facility] [address] [place], [place] [phone] * (ABNORMAL) CBC auto differential (03/29/2025 11:55 AM EDT) White Blood Count 6.8 4.8 - 10.8 X10*3/uL [facility] Red Blood Count 4.77 4.60 - 5.80 X10*6/uL [facility] Hemoglobin 14.8 14.0 - 18.0 g/dl [facility] Hematocrit 42.7 42.0 - 52.0 % [facility] Mean Corpuscular Volume 89.5 80.0 - 98.0 fL [facility] Mean Corpuscular Hemoglobin 31.0 27.0 - 33.0 pg [facility] Mean Corpuscular HGB Conc 34.7 31.0 - 36.0 g/dl [facility] Red Cell Distribution Width 13.3 11.0 - 16.0 % [facility] Platelet Count 152(L) 160 - 400 X10*3/uL [facility] Mean Platelet Volume 11.9 9.4 - 12.4 fL [facility] Neutrophils Percent Auto 63.5 45 - 73 % [facility] Imm Gran Pct Auto 0.1 0.0 - 0.4 % [facility] Lymphocytes Percent Auto 24.3 20 - 40 % [facility] Monocytes Percent Auto 8.9 2 - 11 % [facility] Eosinophils Percent Auto 2.5 0 - 4 % [facility] Basophils Percent Auto 0.7 0 - 2 % [facility] NRBC Pct Auto 0.0 0.0 - 0.2 /100WBC [facility] Neutrophils Absolute Auto 4.3 2.0 - 8.3 x10*3/uL [facility] Imm Gran Abs Auto 0.01 0.00 - 0.03 X10*3/uL [facility] Lymphocytes Absolute Auto 1.7 1.2 - 4.9 X10*3/uL [facility] Monocytes Absolute Auto 0.6 0.1 - 1.2 X10*3/uL [facility] Eosinophils Absolute Auto 0.2 0.0 - 0.4 X10*3/uL [facility] Basophils Absolute Auto 0.1 0.0 - 0.2 X10*3/uL [facility] NRBC Abs Auto 0.000 0.0 - 0.012 X10*3/uL [facility] Blood Venous blood specimen / Unknown 03/29/2025 11:55 AM EDT 03/29/2025 1:04 PM EDT [facility] LAB BLOOD ORDERABLES Final Res ult Performing Organization Address [facility] Co de Phone Number [facility] [address] [place] [phone] * (ABNORMAL) Hepatitis C Antibody with Reflex to HCV, RNA, Quantitative, Real- Time PCR (03/29/2025 11:55 AM EDT) Hepatitis C Antibody Reactive( A) Nonreactive [facility] Comment:Presumptive evidence of antibodies to HCV. Blood Venous blood specimen / Unknown 03/29/2025 11:55 AM EDT 03/29/2025 1:04 PM EDT [facility] LAB BLOOD ORDERABLES Final Res ult Performing Organization Address [facility]/ZIP Co de Phone Number [facility] [address] [place] [phone] * Hepatitis B surface antigen, EIA (03/29/2025 11:55 AM EDT) Hepatitis B Surface Ag Negative Negative [facility] Blood Venous blood specimen / Unknown 03/29/2025 11:55 AM EDT 03/29/2025 1:04 PM EDT [facility] LAB BLOOD ORDERABLES Final Res ult Performing Organization Address City/[facility] Co de Phone Number [facility] [address] [place] [phone] * Hepatitis B Core Antibody, Total (03/29/2025 11:55 AM EDT) Hepatitis B Core Antibody Nonreactive Nonreactive [facility] Blood Venous blood specimen / Unknown 03/29/2025 11:55 AM EDT 03/29/2025 1:04 PM EDT us [employer] [facility] LAB BLOOD ORDERABLES Final Res ult Performing Organization Address [facility] de Phone Number [facility] [address] [place] [phone] * HIV-1/2 Antigen and Antibodies, Fourth Generation, with Reflexes (03/29/2025 11:55 AM EDT) HIV AB/AG Nonreactive Nonreactive [facility] Comment:HIV-1 p24 Ag and/or HIV-1/HIV-2 Ab not detected.A test result that is nonreactive does not exclude thepossibility of exposure to or infection with HIV-1 and/orHIV-2. Nonreactive results in this assay for individualswith prior exposure to HIV-1 and/or HIV-2 may be due toantigen and antibody levels that are below the limit ofdetection of this assay.The [employer] HIV Ag/Ab Combo assay result andsupplemental assay results should be interpreted inconjunction with the patient's clinical presentation,history and other laboratory results. If the results areinconsistent with clinical evidence, additional testing issuggested to confirm the result. Blood Venous blood specimen / Unknown 03/29/2025 11:55 AM EDT 03/29/2025 1:04 PM EDT us [employer]Wireless Dynamic[employer] [facility] LAB BLOOD ORDERABLES Final Res ult Performing Organization Address [facility] Co de Phone Number [facility] [address] [place] [phone] * Hepatitis B Surface Antibody, Qualitative (03/29/2025 11:55 AM EDT) ~Hepatitis B Surface Antibody REACTIVE Nonreactive [facility] Comment:REACTIVE: > 11.99 mI U/mL Blood Venous blood specimen / Unknown 03/29/2025 11:55 AM EDT 03/29/2025 1:04 PM EDT [facility] LAB BLOOD ORDERABLES Final Res ult Performing Organization Address City/[facility]/ZIP Co de Phone Number [facility] [address] [place] [phone] * TSH (03/29/2025 11:55 AM EDT) Pathologist [facility] Thyroid Stimulating Hormone 3.62 0.32 - 4.0 uIU/mL [facility] Comment:Note: A sustained TS H level above 2.5 uIU/mL may warrant further investigation. TSH 3rd Generation ([facility]) Blood Venous blood specimen / Unknown 03/29/2025 11:55 AM EDT 03/29/2025 1:04 PM EDT [facility] LAB BLOOD ORDERABLES Final Res ult Performing Organization Address City/[facility]/ZIP Co de Phone Number [facility] [address] [place] [phone] * PSA,Total (03/29/2025 11:55 AM EDT) Pathologist [facility] Prostate Specific Antigen 0.68 <0.05 - 4.0 ng/mL [facility] Comment:PSA methodology: Abb chuyita Hensley i ChemiluminescentMicroparticle Immunoassay (CMIA) Blood Venous blood specimen / Unknown 03/29/2025 11:55 AM EDT 03/29/2025 1:04 PM EDT [facility] BLO[facility] ORDERABLES Final Res ult Performing Organization Address City/[facility]/ZIP Co de Phone Number [facility] [address] [place] [phone] * Hemoglobin A1c (03/29/2025 11:55 AM EDT) Hemoglobin A1c 5.0 <6.0 % [facility] Comment:Hemoglobin A1C Refer ence Range Adults: 4.8 - 6.0 % Non diabetic: < 6.0 % Goal: < 7.0 %Additional Action Suggested: > 8.0 %Note: Hemoglobin A1c results are invalid for patients with abnormal amounts of HbF. Blood transfusions may impact the HbA1c concentration in the patient sample. Estimated Average Glucose 97 mg/dL [facility] Comment:eAG = Estimated ave rage glucose which is %A1C expressed asaverage glucose, using the formula of the Y4D-PluqjpqIojtoin Glucose study (ADAG), Diabetes Care, Vol.31,#8,Feb. 2007 Blood Venous blood specimen / Unknown 03/29/2025 11:55 AM EDT 03/29/2025 1:04 PM EDT [facility] BLOOD ORDERABLES Final Res ult Performing Organization Address City/[facility]/ZIP Co de Phone Number [facility] [address] [place] [phone] * (ABNORMAL) Lipid Panel, Standard (03/29/2025 11:55 AM EDT) Triglycerides 175(H) <150 mg/dL [facility] Comment:Desirable Triglyceri de: less than 150 mg/dLBorderline High Triglyceride 150-199 mg/dLHigh Triglyceride: 200-499 mg/dLVery High Triglyceride: greater than or equal to 5OO mg/dL Cholesterol 127 <200 mg/dL [facility] Comment:Desirable Cholestero l: less than 200 mg/dLBorderline High Cholesterol: 200-239 mg/dLHigh Cholesterol: greater than 239 mg/dL LDL Cholesterol Calculated 56 <100 mg/dL [facility] Comment:Desirable LDL: less than 100 mg/dLNear Optimal/Above Optimal LDL: 110- 129 mg/dLBorderline High LDL: 130-159 mg/dLHigh LDL: 160-189 mg/dLVery High LDL: greater than or equal to 190 mg/dL HDL Cholesterol 36(L) >40 mg/dL [facility] Comment:Desirable HDL: great er than 40 mg/dL Note: This HDL assay may give artificially low results in patients with liver disease. Blood Venous blood specimen / Unknown 03/29/2025 11:55 AM EDT 03/29/2025 1:04 PM EDT us Sharon Garza CLERK OF SCALES LAB BLOOD ORDERABLES Final Res ult [facility] [address] [place] [phone] * (ABNORMAL) Comprehensive Metabolic Panel (03/29/2025 11:55 AM EDT) Sodium 140 135 - 145 mmol/L [facility] Potassium 4.5 3.3 - 5.1 mmol/L [facility] Chloride 102 96 - 108 mmol/L [facility] Carbon Dioxide 31(H) 22 - 29 mmol/L [facility] Anion Gap 12 12 - 20 [facility] Urea Nitrogen (BUN) 15 9 - 16 mg/dL [facility] Creatinine, Serum 0.88 0.5 - 1.4 mg/dL [facility] Estimated Glomerular Filt Rate >60 [facility] Comment:Chronic Kidney Disea se: Estimated GFR < 60 mL/min/1.62j8Vsagoa Kidney Disease: Estimated GFR < 15 mL/min/1.73m2 Glucose 80 60 - 115 mg/dL [facility] Calcium 9.1 8.4 - 10.2 mg/dL [facility] Bilirubin, Total 1.0 0.0 - 1.0 mg/dL [facility] Aspartate Amino Transferase 174(H) 5 - 37 U/L [facility] Alanine Aminotransferase 152(H) 0 - 40 U/L [facility] Total Protein 8.2(H) 6.5 - 8.0 g/dL [facility] Albumin Level 3.9 3.5 - 5.0 g/dL [facility] Alkaline Phosphatase 158(H) 39 - 117 U/L [facility] Blood Venous blood specimen / Unknown 03/29/2025 11:55 AM EDT 03/29/2025 1:04 PM EDT us Sharon ROUSSEAU LAB BLOOD ORDERABLES Final Res ult [facility] [address] [place] [phone] from Last 3 Months Insurance [facility] [address] [place] [phone] Care Teams Health Care Marketing Manager Relationship Specialty Start Date End Date Sharon Garza FNP [address] [place] [address] PCP - General Family Medicine 03/25/25
== END 2025-04-13 10:38 | disposition home or self-care (01) ==
LOC: HO.HHCL 10:37
PROVIDERS: PCP Nurse Practitioner Family; Visit Provider Nurse Practitioner Family
DX: R06.02 Shortness of breath (principal); R05.9 Cough, unspecified
CPT/HCPCS: 71046

== ENCOUNTER → 2025-04-13 10:43 | Outpatient (BNV) | payer OTHER, SELFPAY | PROVIDERS: PCP Nurse Practitioner Family; Visit Provider Radiology Diagnostic Radiology | DX: R05.8 Other specified cough (principal) | CPT/HCPCS: 71046 ==

== ENCOUNTER 2025-04-15 15:12 | Outpatient (REF) | payer OTHER, SELFPAY ==
--- OUTSIDE RECORDS SUMMARY | 2025-04-13 09:30 | XMS_ITS | Encounter Summary ---
Author Organization [employer] [facility] Address [address] [place] [address] Care Team Providers Care Content Analyst Name Role Phone Sharon Garza Primary Care Provider [phone] Reason for Referral * Consultation (Routine) - Closed Specialty Diagnoses / Procedures Referred By Allison begum Referred To Contact Family Medicine Diagnoses Hepatitis C virus infection without hepatic coma, unspecified chronicity Sharon Garza FNP [address] [place] [address] Phone: tel: fax: Referral ID Status Reason Start Date Expiration Date V isits Requested Visits Authorized [id number] Closed Specialty Services Required 04/13/2025 04/13/2026 1 1 * Imaging (Routine) - Authorized Specialty Diagnoses / Procedures Referred By Allison begum Referred To Contact Radiology Diagnoses Dyspnea, unspecified type Procedures CT Chest w/o Contrast Sharon Garza FNP [address] [place] [address] Phone: tel: fax: [address] Phone: tel: fax: Referral ID Status Reason Start Date Expiration Date V isits Requested Visits Authorized [id number] Authorized 04/13/2025 04/13/2026 1 1 * Consultation (Urgent) - Authorized Specialty Diagnoses / Procedures Referred By Allison begum Referred To Contact Pulmonary Disease Diagnoses Dyspnea, unspecified type Sharon Garza FNP [address] [place] [address] Phone: tel: fax: [facility] [address] Floor [place], [place] Phone: tel: fax: Referral ID Status Reason Start Date Expiration Date Visits Requested Visits Authorized [id number] Authorized Specialty Services Required 04/13/2025 04/13/2026 1 1 Encounter Details Date Type Department Care Team (Late st Contact Info) Description 04/13/2025 9:30 AM EDT Office Visit [facility] [address] [place] [address] Sharon Garza FNP [address] [place] [address] Dyspnea, unspecified type (Primary Dx); Cough with expectoration; Cough with hemoptysis; Hepatitis C virus infection without hepatic coma, unspecified chronicity Social History Tobacco Use Types Packs/Day Years Used Date Smoking Tobacco: Former Cigarettes Passive Smoke Exposure: Past Smokeless Tobacco: Former Comments:Former Tobacco use x 13 yrs x 1 - 1.5 pkt stopped 6 yrs ago Alcohol Use Standard Drinks/Week Comments Never 0 (1 standard drink = 0.6 oz pur e alcohol) Housing Stability Answer Date Recorded What is your housing situation today? I have dav fountain 04/13/[address] you li ve. Do you have problems with any of the following? None of the above 04/13/2025 Food Insecurity Answer Date Recorded Within the past 12 months, y ou worried that your food would run out before you got money to buy more: Never True 04/13/2025 Within the past 12 months,th e food you bought just didn't last and you didn't have enough money to get more: Never True Transportation Answer Date Recorded In the past 12 months, has l ack of transportation kept you from medical appts, meetings, work or from getting things needed for daily living? No 04/13/2025 Utilities Answer Date Recorded In the past 12 months, has t he electric, gas, oil or water company threatened to shut off services in your home? No 04/13/2025 Internet Access Answer Date Recorded Internet Access Q1 Yes 04/13/2025 Internet Access Q2 Not on file 04/13/2025 Sex and Gender Information Value Date Recorded Sex Assigned at Male 03/28/2025 9:18 AM EDT Legal Sex Male 9:18 AM EDT Gender Identity Male 03/28/2025 9:18 AM EDT Sexual Orientation Straight 03/28/2025 9: 18 AM EDT documented as of this encounter Last Filed Vital Signs Vital Sign Reading Time Taken Comments Blood Pressure 138/82 04/13/2025 9:48 AM EDT Pulse 84 04/13/2025 9:48 AM EDT Temperature 37.2 C (99 F) 04/13/2025 9:48 AM EDT Respiratory Rate 18 04/13/2025 9:48 AM EDT Oxygen Saturation 97% 04/13/2025 9:48 AM EDT Inhaled Oxygen Concentration - - Weight 77.7 kg (171 lb 6 oz) 04/13/2025 9:48 AM EDT Height 169.5 cm (5' 6.73 ) 04/13/2025 9:48 AM ED T Body Mass Index 27.06 04/13/2025 9:48 AM EDT documented in this encounter Functional Status * Over the last 2 weeks, how often have you been bothered by any of the following problems? Question Answer Date of Assessment Author Feeling nervous, anxious, or on edge 1 04/13/2025 10:32 AM EDT Day Styles [place] Not being able to stop or control worrying 1 04/13/2025 10:32 AM EDT Day Styles [place] Worrying too much about different things 3 04/13/2025 10:32 AM EDT Day Styles [place] Trouble relaxing 0 04/13/2025 10:32 AM EDT Day Styles [place] Being so restless that it is hard to sit still 3 04/13/2025 10:32 AM EDT Day Styles [place] Becoming easily annoyed or irritable 1 04/13/2025 10:32 AM EDT Day Styles [place] Feeling afraid as if something awful might happen 3 04/13/2025 10:32 AM EDT Day Recinos [place] TAYLOR-7 Total Score 12 04/13/2025 10:32 AM EDT Day Styles [place] documented as of this encounter Progress Notes * Sharon OkSOHAM garsia - 04/13/2025 9:30 AM EDT Subjective Blake Norris is a 44 y.o. male who presents to the office for follow up visit - chronic conditions. Interim history: Dyspnea, unspecified type Lung sound clear with audible wheeze at upper airway area Consider asthma, COPD or allergies. Less likely vocal cord dysfunction, Will prescribe fluticasone, Claritin and albuterol Follow-up scheduled in two to three weeks to reassess symptoms and consider further pulmonary evaluation if indicated Patient here today he has not been using his fluticasone, using the albuterol only about 3-4 times daily as needed. Reports Dyspnea is associated with cough productive of phlegm and intermittent hemoptysis. Current concerns: Chronic Cough with Phlegm and Hemoptysis Reports Chronic cough with phlegm for more than 15 years. Cough frequently produces phlegm and sometimes blood associated with coughing episodes. Symptoms worsen with physical activity, especially during work as maintenance. Reports History of chest injury many years ago in [place] - Denies chest pain. Previous ER visit, received strong antibiotics which helped symptoms. Patient could not provide the name of the hospital, the date/yr of visit and antibiotics given. Reported he was referred to child center assistant but missed the appointment due to insurance coverage. Reports pending pulmonology appointment with no date eventually reported he was waiting for a call back from the child center assistant No prior chest X-ray performed for current symptoms Current Medications[1] Problem List[2] Review of Systems Constitutional: Negative for chills, diaphoresis, fatigue and fever. HENT: Positive for congestion. Negative for sore throat. Respiratory: Positive for cough and shortness of breath. Negative for wheezing. Cardiovascular: Negative for chest pain, palpitations and leg swelling. Objective Visit Vitals BP 138/82 (BP Location: Left arm, Patient Position: Sitting, BP Cuff Size: Adult) Pulse 84 Temp 99 ??F (37.2 ??C) (Oral) Resp 18 Ht 5' 6.73 (1.695 m) Wt 171 lb 6 oz (77.7 kg) SpO2 97% BMI 27.06 kg/m?? Smoking Status Former BSA 1.91 m?? Chest xray FINDINGS: Coarse reticular markings are again identified in the middle third right lung zone and left lower lung zone, stable to slightly increased. There is a circular area just cephalad to the right hilum 3 cm in diameter likely in the posterior right upper lobe Heart size is within normal limits. XR/XR chest 2V 04/13/25 IMPRESSION: There is a new 3 cm circular area in the right suprahilar region likely in the posterior's right upper lobe that could represent a new area of cavitation or other cystic change. This could be infectious or postinfectious. Postinfectious is favored given the lack of an air-fluid level within the lesion and no central high attenuation. Consider CT chest without contrast if felt to be clinically relevant. Although not in the apex of the lung, TB should be a consideration. Cavitating neoplasm is also low in the differential. Chronic coarse interstitial markings are stable to slightly increased from x-ray one year ago Physical Exam Vitals reviewed. Constitutional: Appearance: Normal appearance. HENT: Head: Atraumatic. Cardiovascular: Rate and Rhythm: Normal rate and regular rhythm. Pulses: Normal pulses. Heart sounds: Normal heart sounds. No murmur heard. Pulmonary: Effort: Pulmonary effort is normal. Breath sounds: Normal breath sounds. No wheezing. Comments: Diminished lung sound mid and lower rt lung Neurological: Mental Status: He is alert and oriented to person, place, and time. Psychiatric: Mood and Affect: Mood normal. Behavior: Behavior normal. Assessment/Plan Problem List Items Addressed This Visit Dyspnea, unspecified - Primary Cough with expectoration Cough with hemoptysis Ongoing symptoms for many years. Possible underlying pulmonary pathology. History of smoking. Ordered chest X-ray to further evaluate pulmonary status. Xray findings - new 3 cm circular area in the right suprahilar region likely in the posterior's right upper lobe that could represent a new area of cavitation or other cystic change. This could be infectious or postinfectious. Urgent referral for CT Chest and Staff Radiologist Ordered TB spot Continue use of intranasal corticosteroid daily and albuterol inhaler as needed for respiratory symptoms. Relevant Orders XR Chest 2 Views (Completed) Referral to Pulmonology CT Chest w/o Contrast Relevant Orders T-SPOT??.TB Hepatitis C Hepatitis C Viral RNA, Quantitative, Real-Time PCR Hepatitis C Viral Load [id number] Abnormal HCV Log PCR 6.54 Abnormal Hepatitis C Antibody Reactive Relevant Orders Referral [facility] infectious disease (HIV & Hep C) [1] Current Outpatient Medications Medication Sig Dispense Refill albuterol 108 (90 Base) MCG/ACT inhaler Inhale 2 puffs every 4 (four) hours if needed for wheezing.18 g 1 fluticasone (Flonase) 50 MCG/ACT nasal spray Administer 1 spray into each nostril Once per day. Shake gently. Before first use, prime pump. After use, clean tip and replace cap. 16 g 2 loratadine (Claritin) 10 MG tablet Take 1 tablet (10 mg) by mouth Once per day. 90 tablet 3 No current facility-administered medications for this visit. [2] Patient Active Problem List Diagnosis Dyspnea, unspecified documented in this encounter Plan of Treatment Scheduled Orders Name Type Priority Associated Diagnoses Orde r Schedule T-SPOT .TB Lab Routine Cough with expectoration Cough with hemoptysis Expected: 04/13/2025 (Approximate), Expires: 04/13/2026 CT Chest w/o Contrast Imaging Routine Dyspnea, unspecified type Expected: 04/13/2025, Expires: 04/13/2026 Scheduled Referrals Name Type Priority Associated Diagnoses Orde r Schedule Referral to Pulmonology Outpatient Referral Urgent Dyspnea, unspecified type Expected: 04/13/2025 (Approximate), Expires: 04/13/2026 Referral to [facility] Infectious Disease (HIV & Hep C) Outpatient Referral Routine Hepatitis C virus infection without hepatic coma, unspecified chronicity Expected: 04/13/2025 (Approximate), Expires: 04/13/2026 documented as of this encounter Procedures Procedure Name Priority Date/Time Associated Diagnosis Comments XR CHEST 2 VIEWS Routine 04/13/2025 10:4 0 AM EDT Dyspnea, unspecified type documented in this encounter Results * XR Chest 2 Views (04/13/2025 10:40 AM EDT) Anatomical Region Laterality Modality Chest Radiographic Jo ging 04/13/2025 10:4 0 AM EDT Narrative 04/13/2025 11:05 AM EDT [address] [address] XRay Report Signed Patient: Blake Norris MR#: [id number] 50 : 1980 Acct:[id number] Age/Sex: 44 / M ADM Date: 04/13/25 Loc: .[facility] Attending Dr: Sharon ROUSSEAU Ordering Physician: Sharon Garza Date of Service: 04/13/25 Procedure(s): XR chest 2V Accession Number(s): [id number] cc: Sharon Garza Reason for Exam: coughing with phlem T SOB EXAMINATION: XR CHEST CLINICAL INFORMATION: coughing with phlem T SOB COMPARISON: 03/29/2024 TECHNIQUE: 2 views of the chest were obtained. FINDINGS: Coarse reticular markings are again identified in the middle third right lung zone and left lower lung zone, stable to slightly increased. There is a circular area just cephalad to the right hilum 3 cm in diameter likely in the posterior right upper lobe Heart size is within normal limits. XR/XR chest 2V IMPRESSION: There is a new 3 cm circular area in the right suprahilar region likely in the posterior's right upper lobe that could represent a new area of cavitation or other cystic change. This could be infectious or postinfectious. Postinfectious is favored given the lack of an air-fluid level within the lesion and no central high attenuation. Consider CT chest without contrast if felt to be clinically relevant. Although not in the apex of the lung, TB should be a consideration. Cavitating neoplasm is also low in the differential. Chronic coarse interstitial markings are stable to slightly increased from x-ray one year ago Electronically signed by: Grant Luz MD 04/13/2025 11:02 AM EDT Dictated By: Grant Luz MD Signed By: <Electronically signed by Grant Luz MD in OV> 04/13/25 1102 DD/ 1040 TD/TT: 04/13/25 1050 Software Qa Manager: Procedure Note Donotwatsoninterpreter, Image - 04/13/[address] [address] XRay Report Signed Patient: Lucia Norris#: [id number] 48 : 1980Acct:[id number] Age/Sex: 44 / MADM Date: 04/13/25 Loc: [facility] Attending Dr: Sharon ROUSSEAU Ordering Physician: Sharon Garza Date of Service: 04/13/25 Procedure(s): XR chest 2V Accession Number(s): [id number] cc: Sharon Garza Reason for Exam: coughing with phlem T SOB EXAMINATION: XR CHEST CLINICAL INFORMATION: coughing with phlem T SOB COMPARISON: 03/29/2024 TECHNIQUE: 2 views of the chest were obtained. FINDINGS: Coarse reticular markings are again identified in the middle third right lung zone and left lower lung zone, stable to slightly increased. There is a circular area just cephalad to the right hilum 3 cm in diameter likely in the posterior right upper lobe Heart size is within normal limits. XR/XR chest 2V IMPRESSION: There is a new 3 cm circular area in the right suprahilar region likely in the posterior's right upper lobe that could represent a new area of cavitation or other cystic change. This could be infectious or postinfectious. Postinfectious is favored given the lack of an air-fluid level within the lesion and no central high attenuation. Consider CT chest without contrast if felt to be clinically relevant. Although not in the apex of the lung, TB should be a consideration. Cavitating neoplasm is also low in the differential. Chronic coarse interstitial markings are stable to slightly increased from x-ray one year ago Electronically signed by: Grant Luz MD 04/13/2025 11:02 AM EDT Dictated By: Grant Luz MD Signed By: <Electronically signed by Grant Luz MD in OV> 04/13/25 1102 DD/ 1040 TD/TT: 04/13/25 1050 Software Qa Manager: Sharon ROUSSEAU IMG XR PROCEDURES Final Result documented in this encounter Visit Diagnoses Diagnosis Dyspnea, unspecified type- Primary Cough with expectoration Cough Cough with hemoptysis Hepatitis C virus infection without hepatic coma, unspecified chronicity documented in this encounter Care Teams Content Analyst Relationship Specialty Start Date End Date Sharon Garza FNP [address] [place] [id number] PCP - General Family Medicine 03/25/25 documented as of this encounter
--- OUTSIDE RECORDS SUMMARY | 2025-04-15 15:44 | XMS_ITS | Encounter Summary ---
Author Organization [employer] Address [address] [facility] [address] [place] [address] Care Team Providers Care Correctional Officer Sergeant Name Role Phone Sharon Garza [facility] Primary Care Provider Encounter Details Date Type Department Care Team [...] on filedocumented in this encounter Care Teams Correctional Officer Sergeant Relationship Specialty Start Date End Date Sharon Garza FNP [address] [place] [phone] PCP - General Family Medicine 03/25/25 documented as of this encounter
--- OUTSIDE RECORDS SUMMARY | 2025-04-15 15:44 | XMS_ITS | Encounter Summary ---
Author Organization [employer] Address [address] [facility] [address] [place] [address] Care Team Providers Care Build And Deployment Engineer Name Role Phone Sharon Garza [facility] Primary Care Provider [phone] Encounter Details Date Type Department Care Team (Late st Contact Info) Description 04/14/2025 Telephone [facility] MEDICINE [address] [place] [address] Janae Samaniego RN Social History Tobacco Use Types Packs/Day Years [...] your housing situation today? I have dav александр 04/13/[address] you li [...] encounter Miscellaneous Notes * Telephone Encounter - Janae Samaniego RN - 04/14/2025 1:53 PM EDT Tc to pt via S ID: [id number] to let them know per PCP Please call [place] to go the lab today for TB spot test. His xray shows cavitation and he is urgently referred to do CT chest scan at [facility] and see a pulmonary. Thank you . Pt reports they already had blood work done and a x-ray. Pt advised based off their Chest X-Ray results their provide would like them to rule if they have a currentinfection or was it an postinfection. Pt advised the importance to return the clinic to have this done. Pt advised entry writer printed lab requisition for x- ray and will give to patient coordinator front desk for pt to molded goods spot picker at the blue team to bring down to [facility]. Pt verbalized understanding and reports they will come to the clinic tomorrow to molded goods spot picker the lab requisition and to do their blood work. Lab requition printedand given to patient coordinator front desk. * Telephone Encounter - Janae Samaniego RN - 04/14/2025 1:53 PM EDT ----- Message from Sharon Garza sent at 04/13/2025 2:11 PM EDT ----- Please call [place] to go the lab today for TB spot test. His xray shows cavitation and he is urgently referred to do CT chest scan at [facility] and see a pulmonary. Thank you documented in this encounter Plan of Treatment Not on file documented as of this encounter Visit Diagnoses Not on filedocumented in this encounter Care Teams Build And Deployment Engineer Relationship Specialty Start Date End Date Sharon Garza FNP [address] [place] [id number] PCP - General Family Medicine 03/25/25 documented as of this encounter
--- OUTSIDE RECORDS SUMMARY | 2025-04-15 15:44 | XMS_ITS | Encounter Summary ---
Author Organization [employer] Address [address] [facility] [address] [place] [address] Care Team Providers Care Fence Making Machine Operator Name Role Phone Sharon Garza ORTHOPHOTO TECH/DRAFTSMAN Primary Care Provider [phone] Reason for Visit * Reason Onset Date Comments Hep C Management 04/14/2025 Encounter Details Date Type Department Care Team (Late st Contact Info) Description 04/14/2025 Telephone [facility] MEDICINE [address] [place] [address] Charmaine Carrasquillo, RN [address] [place] [address] Hep C Management Social History Tobacco Use Types Packs/Day Years [...] encounter Miscellaneous Notes * Telephone Encounter - Charmaine Carrasquillo RN - 04/15/2025 9:57 AM EDT RN call #2 to pt regarding Hep C referral. Pt states he was told he had Hep C years ago but then was told he didn't. He has never received treatment. Discussed that it is possible his body cleared iton his own in the past, but this does not confer immunity and it is possible he was reinfected, given HCV RNA [id number] om 03/29/25. Discussed workup and treatment process and pt is in agreement with plan. Pt to come into lab for additional labs soon. Pt also asking about pulmonology referral and was made aware referral was placed and office will becalling him with an appointment per letter in chart. * Telephone Encounter - Charmaine Carrasquillo RN - 04/14/2025 12:46 PM EDT Hep C referral received, noted HCV RNA [id number] on 03/29/25. RN call to pt, left generic message with direct line. Will re-attempt. Added to Hep C RN spreadsheet. Remainder of workup labs ordered. documented in this encounter Plan of Treatment Scheduled Orders Name Type Priority Associated Diagnoses Orde r Schedule Hepatitis C Viral RNA, Genotype, LiPA Lab Routine Hepatitis C virus infection without hepatic coma, unspecified chronicity Expected: 04/14/2025 (Approximate), Expires: 04/14/2026 Prothrombin Time-INR Lab Routine Hepatitis C virus infection without hepatic coma, unspecified chronicity Expected: 04/14/2025 (Approximate), Expires: 04/14/2026 Liver Fibrosis (HCV), FibroTest-ActiTest Panel Lab Routine Hepatitis C virus infection without hepatic coma, unspecified chronicity Expected: 04/14/2025 (Approximate), Expires: 04/14/2026 Hepatitis A Antibody, Total Lab Routine Hepatitis C virus infection without hepatic coma, unspecified chronicity Expected: 04/14/2025 (Approximate), Expires: 04/14/2026 documented as of this encounter Visit Diagnoses Diagnosis Hepatitis C virus infection without hepatic coma, unspecified chronicity documented in this encounter Care Teams Fence Making Machine Operator Relationship Specialty Start Date End Date hSaron Garza FNP [address] [place] [id number] PCP - General Family Medicine 03/25/25 documented as of this encounter
--- OUTSIDE RECORDS SUMMARY | 2025-04-15 15:44 | XMS_ITS | Encounter Summary ---
Author Organization [employer] Address [address] [facility] [address] [place] [address] Care Team Providers Care Radar Repairer Name Role Phone Sharon Garza [facility] Primary Care Provider [phone] Encounter Details Date Type Department Care Team (Late st Contact Info) Description 04/13/2025 Telephone [facility] MEDICINE [address] [place] [address] Janae Samaniego RN Social History Tobacco Use [...] Styles [place] documented as of this encounter Miscellaneous Notes * Telephone Encounter - Janae Samaniego RN - 04/13/2025 3:36 PM EDT Tc to pt via BLS ID: [id number] to let them know per PCP Please call [place] to go the lab today for TB spot test. His xray shows cavitation and he is urgently referred to [place] CT chest scan [place] [facility] and see a pulmonary. Thank you . No answer, lvm to return call and ask to speak to [place] team nurses. * Telephone Encounter - Janae Samaniego RN - 04/13/2025 3:36 PM EDT ----- Message from Sharon Garza sent at 04/13/2025 2:11 PM EDT ----- Please call [place] to go the lab today for TB spot test. His xray shows cavitation and he is urgently referred to do CT chest scan at [facility] and see a pulmonary. Thank you documented in this encounter Plan of Treatment Not on file documented as of this encounter Visit Diagnoses Not on filedocumented in this encounter Care Teams Radar Repairer Relationship Specialty Start Date End Date Sharon Garza FNP [address] [place] [id number] PCP - General Family Medicine 03/25/25 documented as of this encounter
--- OUTSIDE RECORDS SUMMARY | 2025-04-15 15:44 | XMS_ITS | Encounter Summary ---
Author Organization [employer] Address [address] [facility] [address] [place] [address] Care Team Providers Care Chenille Machine Operator Name Role Phone Sharon Garza [facility] Primary Care Provider [phone] Encounter Details Date Type Department Care Team (Late st Contact Info) Description 04/14/2025 Telephone [facility] MEDICINE [address] [place] [address] Janae Samaniego RN Social History Tobacco Use [...] Encounter - Janae Samaniego RN - 04/14/2025 2:03 PM EDT Tc to pt via S ID: [id number] to let them know per PCP Please call [place] to go the lab today for TB spot test. His xray shows cavitation and he is urgently referred to do CT chest scan at [facility] and see a pulmonary. Thank you . Pt reports they already had blood work done and a x-ray. Pt advised based off their Chest X-Ray results their provide would like them to rule if they have a currentinfection or was it an postinfection. Pt advised the importance to return the clinic to have this done. Pt advised credit underwriter printed lab requisition for x- ray and will give to manager front office for pt to roller picker at the blue team to bring down to [facility]. Pt verbalized understanding and reports they will come to the clinic tomorrow to roller picker the lab requisition and to do their blood work. Lab requition printedand given to manager front office. * Telephone Encounter - Janae Samaniego RN - 04/14/2025 11:40 AM EDT Tc to pt to let them know per PCP Please call [place] to go the lab today for TB spot test. His xray shows cavitation and he is urgently referred to do CT chest scan at [facility] and see a pulmonary. Thank you . * Telephone Encounter - Janae Samaniego RN - 04/14/2025 11:40 AM EDT ----- Message from Sharon Garza sent at 04/13/2025 2:11 PM EDT ----- Please call [place] to go the lab today for TB spot test. His xray shows cavitation and he is urgently referred to do CT chest scan at [facility] and see a pulmonary. Thank you documented in this encounter Plan of Treatment Not on file documented as of this encounter Visit Diagnoses Not on filedocumented in this encounter Care Teams Chenille Machine Operator Relationship Specialty Start Date End Date Sharon Garza FNP [address] [place] [id number] PCP - General Family Medicine 03/25/25 documented as of this encounter
--- OUTSIDE RECORDS SUMMARY | 2025-04-15 15:44 | XMS_ITS | Encounter Summary ---
Author Organization [employer] Address [address] [facility] [address] [place] [address] Care Team Providers Care Pallet Rectifier Name Role Phone Sharon Garza FULFILLMENT COORDINATOR Primary Care Provider [phone] Reason for Visit * Reason Onset Date Comments Chart Prep 04/12/2025 Encounter Details Date Type Department Care Team (Late st Contact Info) Description 04/12/2025 Telephone [facility] [address] [place], [place] [id number] Sharon Garza FNP [address] [facility] [place] [address] Chart Prep Social History Tobacco Use Types [...] Prep Labs: done Images: not applicable Referrals:Gastroenterology ([facility]) needs to book appt.Ref letter in. Vaccines due: Covid, Flu, and Hep B Screenings: colonoscopy Overdue care gaps: SDOH, PHQ-9, TAYLOR-7, Disability screen, and Tobacco documented in this encounter Plan of Treatment Not on file documented as of this encounter Visit Diagnoses Not on filedocumented in this encounter Care Teams Pallet Rectifier Relationship Specialty Start Date End Date Sharon Garza FNP [address] [place] [id number] PCP - General Family Medicine 03/25/25 documented as of this encounter
--- OUTSIDE RECORDS SUMMARY | 2025-04-15 15:44 | XMS_ITS | Clinical Summary ---
Author Organization [employer] Address [address] [facility] [address] [place] [address] Care Team Providers Care Change Manager Name Role Phone Sharon Garza [facility] Primary Care Provider Allergies No known active allergies Medications fluticasone [...] Noted Date Diagnosed Date Dyspnea, unspecified 04/13/2025 Hepatitis C virus infection without hepatic coma 04/13/2025 Cough with hemoptysis 04/13/2025 Encounters Date Type Department Care Team Description 04/14/2025 Telephone [facility] [address] [place] [address] Janae Samaniego RN 04/14/2025 Telephone [facility] [address] [place] [address] Charmaine Carrasquillo, RN Hep C Management 04/14/[address] [address] Janae Samaniego RN 04/13/2025 9:30 AM EDT Office Visit [address] [address] Sharon Garza FNP Dyspnea, unspecified type (Primary Dx); Cough with expectoration; Cough with hemoptysis; Hepatitis C virus infection without hepatic coma, unspecified chronicity 04/13/[address] [address] Janae Samaniego RN 04/13/2025 Travel 04/12/2025 Telephone [facility] [address] [place] [address] Sharon Garza FNP Chart Prep 03/29/2025 10:30 AM EDT Office Visit [address] [address] Sharon Garza FNP Encounter for adult wellness visit (Primary Dx); Encounter for immunization; Dyspnea, unspecified type; Overweight; Dietary counseling; Exercise counseling 03/29/2025 Orders Only [address] [address] Sharon Garza FNP 03/29/2025 Travel 03/25/[address] [address] Sharon Garza FNP CHARTPREP 03/22/2025 Patient Outreach [facility] [address] [place] [address] Sharon Garza FNP Pre-visit Planning ([facility] unable to reach [facility]) from Last 3 Months Immunizations Immunization Administration [...] Screening 1978 Family Planning (PISQ) 1993 Hepatitis A Vaccines (1 of 2 - Risk 2-dose series) 1997 Hepatitis B Vaccines (1 of 3 - 19+ 3-dose series) 1997 COVID-19 Vaccine (2023-2 5 season) 2025 Influenza Vaccine (#1) 2025 Alcohol/Substance Use Screening 03/29/2026 SDOH Screening 04/13/2026 04/13/2025 Tobacco Screening 04/13/2026 04/13/2025 Zoster Vaccines (1 of 2) 2028 Lipid Panel 03/29/2030 03/29/2025 DTaP/Tdap/Td Vaccines (2 - T d or Tdap) 03/29/2035 03/29/2025 RSV Patients and Pa tients Aged 60 years or older (1 - 1-dose 75+ series) 2053 HIV Screening Completed 03/29/2025 HIB Vaccines Aged Out No longer [...] AM EDT Narrative 04/13/2025 11:05 AM EDT [address] [address] XRay Report Signed Patient: Blake Norris MR#: [id number] 48 : 1980 Acct:[id number] Age/Sex: 44 / M ADM Date: 04/13/25 Loc: [facility] Attending Dr: Sharon ROUSSEAU Ordering Physician: Sharon Garza Date of Service: 04/13/25 Procedure(s): XR chest 2V Accession Number(s): [id number] cc: Sharon Garza Reason for Exam: coughing [...] 04/13/25 1102 DD/ 1040 TD/TT: 04/13/25 1050 Scalemaker: Procedure Note Donotwatsoninterpreter, Image - 04/13/[address] [address] XRay Report Signed Patient: Lucia Norris#: [id number] 48 : 1980Acct:[id number] Age/Sex: 44 / MADM Date: 04/13/25 [facility] Attending Dr: Sharon ROUSSEAU Ordering Physician: Sharon Garza Date of Service: 04/13/25 Procedure(s): XR chest 2V Accession Number(s): [id number] cc: Sharon Garza Reason for Exam: coughing [...] 04/13/25 1102 DD/ 1040 TD/TT: 04/13/25 1050 Scalemaker: [facility] IMG XR PROCEDURES Final Result * Chlamydia/N. Gonorrhoeae, PCR, Urine (03/29/2025 11:55 AM EDT) CT PCR, Urine NOT DETECTED Not Detect. [facility] Comment:A not detected test result does [...] NG PCR, Urine NOT DETECTED Not Detect. [facility] Comment:A not detected test result does [...] 11:55 AM EDT 03/29/2025 1:19 PM EDT [facility] LAB URINE ORDERABLES Final Res ult Performing Organization Address [facility]/ZIP Co de Phone Number [facility] [address] [place] [phone] * (ABNORMAL) Vitamin D, 25-Hydroxy, Total, Immunoassay (03/29/2025 11:55 AM EDT) Vitamin D 25-OH Total 26.9(L) >30 ng/mL [facility] Comment: Health Based Reference Values*< 20 ng/mL Utggqjuxy55-53 ng/mL Insufficient> 30 ng/mL Sufficient*Erin PULIDO. N [...] AM EDT 03/29/2025 1:04 PM EDT Sharon Garza [facility] LAB BLOOD ORDERABLES Final Res ult Performing Organization Address [facility]/ZIP Co de Phone Number [facility] [address] [place] [phone] * (ABNORMAL) Hepatitis C Viral RNA, Quantitative, Real-Time PCR (03/29/2025 11:55 AM EDT) Hepatitis C Viral Load 3491207(A ) NOT DETECTED IU/mL [facility] HCV Log PCR 6.54(A) NOT DETECTED Log IU/mL [facility] Comment:For additional infor antonio, please refer [email or web address].[employer]/faq/VER46i8(This link is being provided for informational/educational purposes only.)THIS TEST WAS PERFORMED AT:[facility] [place] [phone] DILLON MD 03/29/2025 11:5 5 AM EDT 03/30/2025 10:37 AM EDT us Sharon Garza [employer]ATING [employer] LAB BLOOD ORDERABLES Final Res ult [facility] [address] [place] [phone] * (ABNORMAL) CBC auto differential (03/29/2025 11:55 AM EDT) White Blood Count 6.8 4.8 - 10.8 X10*3/uL [facility] Red Blood Count 4.77 4.60 - 5.80 X10*6/uL [facility] Hemoglobin 14.8 14.0 - 18.0 g/dl [facility] Hematocrit 42.7 42.0 - 52.0 % [facility] Mean Corpuscular Volume 89.5 80.0 - 98.0 fL [facility] Mean Corpuscular Hemoglobin 31.0 27.0 - 33.0 pg [facility] Mean Corpuscular HGB Conc 34.7 31.0 - 36.0 g/dl [facility] Red Cell Distribution Width 13.3 11.0 - 16.0 % [facility] Platelet Count 152(L) 160 - 400 X10*3/uL [facility] Mean Platelet Volume 11.9 9.4 - 12.4 fL [facility] Neutrophils Percent Auto 63.5 45 - 73 % [facility] Imm Gran Pct Auto 0.1 0.0 - 0.4 % [facility] Lymphocytes Percent Auto 24.3 20 - 40 % [facility] Monocytes Percent Auto 8.9 2 - 11 % [facility] Eosinophils Percent Auto 2.5 0 - 4 % [facility] Basophils Percent Auto 0.7 0 - 2 % [facility] NRBC Pct Auto 0.0 0.0 - 0.2 /100WBC [facility] Neutrophils Absolute Auto 4.3 2.0 - 8.3 x10*3/uL [facility] Imm Gran Abs Auto 0.01 0.00 - 0.03 X10*3/uL [facility] Lymphocytes Absolute Auto 1.7 1.2 - 4.9 X10*3/uL [facility] Monocytes Absolute Auto 0.6 0.1 - 1.2 X10*3/uL [facility] Eosinophils Absolute Auto 0.2 0.0 - 0.4 X10*3/uL [facility] Basophils Absolute Auto 0.1 0.0 - 0.2 X10*3/uL [facility] NRBC Abs Auto 0.000 0.0 - 0.012 X10*3/uL [facility] Blood Venous blood specimen / Unknown 03/29/2025 11:55 AM EDT 03/29/2025 1:04 PM EDT us Sharon Garza [facility] LAB BLOOD ORDERABLES Final Res ult [facility] [address] [place] [phone] * (ABNORMAL) Hepatitis C Antibody with Reflex to HCV, RNA, Quantitative, Real- Time PCR (03/29/2025 11:55 AM EDT) Hepatitis C Antibody Reactive( A) Nonreactive [facility] Comment:Presumptive evidence of antibodies to HCV. Blood Venous blood specimen / Unknown 03/29/2025 11:55 AM EDT 03/29/2025 1:04 PM EDT [employer] [facility] LAB BLOOD ORDERABLES Final Res ult Performing Organization Address [facility]/ZIP Co de Phone Number [facility] [address] [place] [phone] * Hepatitis B surface antigen, EIA (03/29/2025 11:55 AM EDT) Hepatitis B Surface Ag Negative Negative [facility] Blood Venous blood specimen / Unknown 03/29/2025 11:55 AM EDT 03/29/2025 1:04 PM EDT [facility] BLOOD ORDERABLES Final Res ult Performing Organization Address [facility] Co de Phone Number [facility] [address] [place] [phone] * Hepatitis B Core Antibody, Total (03/29/2025 11:55 AM EDT) Hepatitis B Core Antibody Nonreactive Nonreactive [facility] Blood Venous blood specimen / Unknown 03/29/2025 11:55 AM EDT 03/29/2025 1:04 PM EDT [facility]LOOD ORDERABLES Final Res ult Performing Organization Address [facility] Co de Phone Number [facility] [address] [place] [phone] * HIV-1/2 Antigen and Antibodies, Fourth Generation, with Reflexes (03/29/2025 11:55 AM EDT) HIV AB/AG Nonreactive Nonreactive [facility] Comment:HIV-1 p24 Ag and/or HIV-1/HIV-2 Ab not detected.A test result that is nonreactive does not exclude thepossibility of exposure to or infection with HIV-1 and/orHIV-2. Nonreactive results in this assay for individualswith prior exposure to HIV-1 and/or HIV-2 may be due toantigen and antibody levels that are below the limit ofdetection of this assay.The [employer] HIV Ag/Ab Combo assay result andsupplemental assay results should be interpreted inconjunction with the patient's clinical presentation,history and other laboratory results. If the results areinconsistent with clinical evidence, additional testing issuggested to confirm the result. Blood Venous blood specimen / Unknown 03/29/2025 11:55 AM EDT 03/29/2025 1:04 PM EDT [employer] [facility] LAB BLOOD ORDERABLES Final Res ult Performing Organization Address City/[facility]/ZIP Co de Phone Number [facility] [address] [place] [phone] * Hepatitis B Surface Antibody, Qualitative (03/29/2025 11:55 AM EDT) ~Hepatitis B Surface Antibody REACTIVE Nonreactive [facility] Comment:REACTIVE: > 11.99 mI U/mL Blood Venous blood specimen / Unknown 03/29/2025 11:55 AM EDT 03/29/2025 1:04 PM EDT [employer] [facility] LAB BLOOD ORDERABLES Final Res ult Performing Organization Address [facility]/ZIP Co de Phone Number [facility] [address] [place] [phone] * TSH (03/29/2025 11:55 AM EDT) Thyroid Stimulating Hormone 3.62 0.32 - 4.0 uIU/mL [facility] Comment:Note: A sustained TS H level above 2.5 uIU/mL may warrant further investigation. TSH 3rd Generation ([employer]) Blood Venous blood specimen / Unknown 03/29/2025 11:55 AM EDT 03/29/2025 1:04 PM EDT [employer] LAB BLOOD ORDERABLES Final Res ult Performing Organization Address City/[facility]/ZIP Co de Phone Number [facility] [address] [place] [phone] * PSA,Total (03/29/2025 11:55 AM EDT) Prostate Specific Antigen 0.68 <0.05 - 4.0 ng/mL [facility] Comment:PSA methodology: Abb chuyita Alinity i ChemiluminescentMicroparticle Immunoassay (CMIA) Blood Venous blood specimen / Unknown 03/29/2025 11:55 AM EDT 03/29/2025 1:04 PM EDT [facility] LAB BLOOD ORDERABLES Final Res ult Performing Organization Address [facility] Co de Phone Number [facility] [address] [place] [phone] * Hemoglobin A1c (03/29/2025 11:55 AM EDT) Hemoglobin A1c 5.0 <6.0 % [facility] Comment:Hemoglobin A1C Refer ence Range Adults: 4.8 - 6.0 % Non diabetic: < 6.0 % Goal: < 7.0 %Additional Action Suggested: > 8.0 %Note: Hemoglobin A1c results are invalid for patients with abnormal amounts of HbF. Blood transfusions may impact the HbA1c concentration in the patient sample. Estimated Average Glucose 97 mg/dL [facility] Comment:eAG = Estimated ave rage glucose which is %A1C expressed asaverage glucose, using the formula of the A8V-FeincceOokllzf Glucose study (ADAG), Diabetes Care, Vol.31,#8,Feb. 2007 Blood Venous blood specimen / Unknown 03/29/2025 11:55 AM EDT 03/29/2025 1:04 PM EDT Sharon Picreelo PLATING ENGINE[employer] LAB BLOOD ORDERABLES Final Res ult [facility] [address] [place] [phone] * (ABNORMAL) Lipid Panel, Standard (03/29/2025 11:55 AM EDT) Triglycerides 175(H) <150 mg/dL [facility] Comment:Desirable Triglyceri de: less than 150 mg/dLBorderline High Triglyceride 150-199 mg/dLHigh Triglyceride: 200-499 mg/dLVery High Triglyceride: greater than or equal to 5OO mg/dL Cholesterol 127 <200 mg/dL [facility] Comment:Desirable Cholestero l: less than 200 mg/dLBorderline High Cholesterol: 200-239 mg/dLHigh Cholesterol: greater than 239 mg/dL LDL Cholesterol Calculated 56 <100 mg/dL [facility] Comment:Desirable LDL: less than 100 mg/dLNear Optimal/Above Optimal LDL: 110- 129 mg/dLBorderline High LDL: 130-159 mg/dLHigh LDL: 160-189 mg/dLVery High LDL: greater than or equal to 190 mg/dL HDL Cholesterol 36(L) >40 mg/dL [facility] Comment:Desirable HDL: great er than 40 mg/dL Note: This HDL assay may give artificially low results in patients with liver disease. Blood Venous blood specimen / Unknown 03/29/2025 11:55 AM EDT 03/29/2025 1:04 PM EDT Sharon Garza PLATING ENGINEER LAB BLOOD ORDERABLES Final Res ult [facility] [address] [place] [phone] * (ABNORMAL) Comprehensive Metabolic Panel (03/29/2025 11:55 AM EDT) Sodium 140 135 - 145 mmol/L [facility] Potassium 4.5 3.3 - 5.1 mmol/L [facility] Chloride 102 96 - 108 mmol/L [facility] Carbon Dioxide 31(H) 22 - 29 mmol/L [facility] Anion Gap 12 12 - 20 [facility] Urea Nitrogen (BUN) 15 9 - 16 mg/dL [facility] Creatinine, Serum 0.88 0.5 - 1.4 mg/dL [facility] Estimated Glomerular Filt Rate >60 [facility] Comment:Chronic Kidney Disea se: Estimated GFR < 60 mL/min/1.61m7Hlduvp Kidney Disease: Estimated GFR < 15 mL/min/1.73m2 Glucose 80 60 - 115 mg/dL [facility] Calcium 9.1 8.4 - 10.2 mg/dL [facility] Bilirubin, Total 1.0 0.0 - 1.0 mg/dL [facility] Aspartate Amino Transferase 174(H) 5 - 37 U/L [facility] Alanine Aminotransferase 152(H) 0 - 40 U/L [facility] Total Protein 8.2(H) 6.5 - 8.0 g/dL [facility] Albumin Level 3.9 3.5 - 5.0 g/dL [facility] Alkaline Phosphatase 158(H) 39 - 117 U/L [facility] Blood Venous blood specimen / Unknown 03/29/2025 11:55 AM EDT 03/29/2025 1:04 PM EDT us Sharon Garza PLATING ENGINEER LAB BLOOD ORDERABLES Final Res ult [facility] [address] [place] [phone] from Last 3 Months Insurance [facility] [address] [place] [phone] Care Teams Change Manager Relationship Specialty Start Date End Date Sharon Garza FNP [address] [place] [phone] PCP - General Family Medicine 03/25/25
[2025-04-15 16:43] LABS: INTERNATIONAL NORM RATIO 1.1 (0.9-1.1); Prothrombin Time 12.7 SEC (10.9-12.4)
[2025-04-18 08:49] LABS: TS Negative Control Passed; TS Panel A 1; TS Panel B 1; TS Positive Control Passed; TSpotTB Negative (Negative)
[2025-04-21 22:33] LABS: FIB-ALT 89 U/L (9-46); FIB-Alpha-2-Macroglobulin 464 mg/dL (106-279); FIB-Apolipoprotein A1 127 mg/dL (94-176); FIB-GGT 140 U/L (3-95); FIB-Haptoglobin 40 mg/dL (43-212); FIB-Total Bilirubin 0.6 mg/dL (0.2-1.2); Liver Fibrosis Score 0.88; Liver Fibrosis Stage F4; Nec Inflam Act Grade A3; Nec Inflam Act Score 0.72
[2025-04-22 05:53] LABS: ~Hepatitis A Antibody IgG 3.58 S/CO (0.00-0.99)
== END 2025-04-15 15:13 | disposition home or self-care (01) ==
LOC: HO.HHCL 15:12
PROVIDERS: PCP Nurse Practitioner Family; Visit Provider Nurse Practitioner Family
DX: Z11.1 Encounter for screening for respiratory tuberculosis (principal); Z11.59 Encounter for screening for other viral diseases; R06.02 Shortness of breath; R04.2 Hemoptysis; B19.20 Unspecified viral hepatitis C without hepatic coma
CPT/HCPCS: 36415; 81596; 85610; 86481; 86708; 87902

== ENCOUNTER 2025-05-09 13:22 | Outpatient (REF) | payer OTHER, SELFPAY ==
[2025-05-09 14:30] LABS: MANUAL DIFF FLAG NO
[2025-05-09 14:58] LABS: Hematocrit 40.6 % (42.0-52.0); Hemoglobin 14.0 g/dl (14.0-18.0); Imm Gran Abs Auto 0.02 X10*3/uL (0.00-0.03); Imm Gran Pct Auto 0.2 % (0.0-0.4); Lymphocytes Absolute Auto 2.1 X10*3/uL (1.2-4.9); Mean Corpuscular HGB Conc 34.5 g/dl (31.0-36.0); Mean Corpuscular Hemoglobin 30.8 pg (27.0-33.0); Mean Corpuscular Volume 89.4 fL (80.0-98.0); NRBC Abs Auto 0.000 X10*3/uL (0.0-0.012); NRBC Pct Auto 0.0 /100WBC (0.0-0.2); Platelet Count 159 X10*3/uL (160-400); Red Blood Count 4.54 X10*6/uL (4.60-5.80); White Blood Count 8.2 X10*3/uL (4.8-10.8)
[2025-05-09 16:19] LABS: Anion Gap 11 (12-20); Blood Urea Nitrogen 18 mg/dL (9-16); Calcium 8.9 mg/dL (8.4-10.2); Carbon Dioxide 28 mmol/L (22-29); Chloride 106 mmol/L (96-108); Estimated Glomerular Filt Rate > 60; Potassium 3.9 mmol/L (3.3-5.1); Sodium 141 mmol/L (135-145)
[2025-05-10 13:24] LABS: HIV Num 1 0.09 S/CO (0.00-0.99)
[2025-05-10 14:28] LABS: Antibody to SS-A Antigen <1.0 NEG AI (<1.0 NEG); Antibody to SS-B Antigen <1.0 NEG AI (<1.0 NEG); Proteinase 3 PR3 Antibodies <1.0 AI
[2025-05-12 15:24] LABS: Class Alternaria alternata 0; Class Aspergillus fumigatus 0; Class Bermuda Grass 0; Class Birch 0; Class Cat Dander 0; Class Cladosporium herbarum 0; Class Cockroach 2; Class Common Ragweed 0/1; Class Cottonwood 0; Class Derm. pterony 0; Class Dermatophagoides farinae 0; Class Dog Dander 0; Class Elm 0; Class Maple Box Elder 0; Class Mountain Cedar 0; Class Mouse Urine Protein 0; Class Mugwort 0; Class Oak 0; Class Penicillium crysogenum 0; Class Rough Pigweed 0; Class Sheep Sorrel 0; Class Sycamore 0; Class Timothy Grass 0; Class Walnut Tree 0; Class White Ash 0; Class White Mulberry 0; D002 - IgE D farinae <0.10 kU/L; E001 - IgE Cat Dander <0.10 kU/L; E005 - IgE Dog Dander <0.10 kU/L; G006 - IgE Timothy Grass <0.10 kU/L; I006-IgE Cockroach, German 0.70 kU/L; M002 - IgE Cladosporium herbar <0.10 kU/L; M003 - IgE Aspergillus fumigat <0.10 kU/L; M006 - IgE Alternaria alternat <0.10 kU/L; T001 IgE Maple/Box Elder <0.10 kU/L; T006 - IgE Cedar, Mountain <0.10 kU/L; T007 - IgE Oak, White <0.10 kU/L; T008 IgE Elm, American <0.10 kU/L; T010 - IgE Walnut <0.10 kU/L; T011 - IgE Maple Leaf Sycamore <0.10 kU/L; T014 - IgE Cottonwood <0.10 kU/L; T015 - IgE Ash, White <0.10 kU/L; T070 - IgE White Mulberry <0.10 kU/L; W001 - IgE Ragweed, Short 0.11 kU/L; W006 - IgE Mugwort <0.10 kU/L; W014 IgE Pigweed, Common <0.10 kU/L; W018 IgE Sheep Sorrel <0.10 kU/L
[2025-05-16 11:34] LABS: Asperg fumigatus Precip Abs NEGATIVE (NEGATIVE); Micropoly faeni Abs NEGATIVE (NEGATIVE); Saccharo pora viridis Abs NEGATIVE (NEGATIVE); Thermo candidus Abs NEGATIVE (NEGATIVE)
[2025-05-18 15:03] LABS: Anti Nuclear Antibody Pattern Nuclear, Homogeneous; Anti Nuclear Antibody Screen POSITIVE (NEGATIVE); Anti Nuclear Antibody Titer 1:80 titer
== END 2025-05-09 13:23 | disposition home or self-care (01) ==
LOC: HO.LAB 13:22
PROVIDERS: PCP Nurse Practitioner Family; Visit Provider Hospitalist
DX: J45.41 Moderate persistent asthma with (acute) exacerbation (principal); J47.9 Bronchiectasis, uncomplicated; J98.4 Other disorders of lung; R91.8 Other nonspecific abnormal finding of lung field; T78.40XA Allergy, unspecified, initial encounter; Z87.891 Personal history of nicotine dependence; Z11.4 Encounter for screening for human immunodeficiency virus [HIV]; Z01.84 Encounter for antibody response examination; X58.XXXA Exposure to other specified factors, initial encounter
CPT/HCPCS: 36415; 80048; 82164; 82784; 82785; 85025; 85652; 86003; 86021; 86038; 86039; 86235; 86331; 86606; 86609; 87070; 87077; 87116; 87205; 87206; 87389; 99202

== ENCOUNTER 2025-05-09 13:22 | Outpatient (AMB) | payer OTHER, SELFPAY ==
--- NOTE | 2025-05-09 13:24 | A.OFFVIS_ITS ---
Vital Signs 3 05/09/25 13:25 Height 5 ft 7 in Weight 176 lb 5.917 oz BMI 27.6 BP 136/70 Blood Pressure Location Lt brachial Position Sitting Pulse 74 Pulse Source Pulse Oximeter Pulse Oximetry (%) 97 Oxygen Delivery Method Room Air Intake Visit Reasons: Abnormal chest X-ray Accompanied by: Self / Same As Patient Allergies No Known Allergies Allergy (Verified 05/09/25 13:28) HPI Comments Details: The patient is here for pulmonary evaluation. The patient is a 44-year-old gentleman with a normal CT scan of the chest. Apparently back a year ago he was having some chest discomfort. Unfortunately lost his insurance so he could not follow-up with medical advice. The discomfort is mainly in the right lower chest area. More recently he had an episode went to the ER. Now with insurance. He was able to get an x-ray. It was noted that he had a cystic like area. I did personally reviewed the x-ray. He also had a CT scan of the abdomen from 2023 which I personally reviewed demonstrating significant cystic lung disease with some areas of bronchiectasis and airspace disease in the left base. The patient also has significant bronchitis. He has major complaint is cough chest congestion. Sometimes hemoptysis. And he has shortness of breath with chest tightness and wheezing. He has been using his inhalers with partial improvement. When he did come to the ER she was given antibiotics and he did feel better but he felt like the antibiotic courses too short. [facility] Medical History (Updated 05/09/25 @ 20:22 by Zohaib Bowers MD) Allergies Asthma Cystic-bullous disease of lung Bronchiolectasis Social History (Updated 05/09/25 @ 13:29 by Bonita Norris CMA) Alcohol intake: former Patient Tobacco Use Status: Former Tobacco user Review of Systems Const Denies fever(s) Eyes Reports no additional complaints ENT Reports nasal congestion Card Reports chest pain and Reports dyspnea on exertion Resp Reports chest congestion, Reports cough, Reports hemoptysis, Reports dyspnea on exertion and Reports wheezing GI Reports no additional complaints Musc Reports no additional complaints Skin/Breast Denies rash Neuro Reports no additional complaints Endo Reports no additional complaints Brian/Lymph Reports no additional complaints Aller/Immun Reports wheezing Physical Exam Vital Signs: Last Vital Signs Pulse 74 05/09/25 13:25 BP 136/70 05/09/25 13:25 Pulse Ox 97 05/09/25 13:25 Oxygen Delivery Method Room Air 05/09/25 13:25 BMI result Body Mass Index 27.6 Const General: comfortable Orientation/consciousness: patient oriented x3 HEENT Head: Yes normocephalic Neck Neck: Yes supple Chest Chest palpation & inspection: normal inspection of the chest Resp Effort & Inspection: normal respiratory effort and prolonged expiratory phase Auscultation: rhonchi and diminished lung sounds Cardio Heart sounds: S1 normal heart sound present and S2 normal heart sound present GI Palpation (GI): Soft to palpation Skin General skin exam: no rashes or lesions noted Neuro General: patient oriented x3 Extrem General: Yes no clubbing, cyanosis or edema Results Reviewed Results Reviewed: Assessment & Plan Assessment & Plan (1) Bronchiolectasis: Code(s): J47.9 - Bronchiectasis, uncomplicated Category: Medical (2) Cystic-bullous disease of lung: Code(s): J98.4 - Other disorders of lung Category: Medical (3) Asthma: Code(s): J45.909 - Unspecified asthma, uncomplicated Category: Medical Qualifiers: Asthma severity: moderate Asthma persistence: persistent Asthma complication type: with acute exacerbation Qualified Code(s): J45.41 - Moderate persistent asthma with (acute) exacerbation (4) Allergies: Code(s): T78.40XA - Allergy, unspecified, initial encounter Category: Medical Qualifiers: Encounter type: initial encounter Qualified Code(s): T78.40XA - Allergy, unspecified, initial encounter Plan Bloodwork start Breo GASPER as needed Nebulizer therapy Sputum cx/AFB sent CT chest PFTs start Augmentin start Prednisone taper F/U 2-3 months Orders: Orders 2 Acid-fast Culture + Smear Today R91.1 - Solitary pulmonary nodule Complete Blood Count Auto Diff Today J45.909 - Unspecified asthma, uncomplicated, J47.9 - Bronchiectasis, uncomplicated, J98.4 - Other disorders of lung, T78.40XA - Allergy, unspecified, initial encounter ANCA Vasculitides Today J45.909 - Unspecified asthma, uncomplicated, J47.9 - Bronchiectasis, uncomplicated, J98.4 - Other disorders of lung, T78.40XA - Allergy, unspecified, initial encounter ELIZABETH Reflex Titer and Pattern Today J45.909 - Unspecified asthma, uncomplicated, J47.9 - Bronchiectasis, uncomplicated, J98.4 - Other disorders of lung, T78.40XA - Allergy, unspecified, initial encounter Hypersensitive Pneumonitis Prf Today J45.909 - Unspecified asthma, uncomplicated, J47.9 - Bronchiectasis, uncomplicated, J98.4 - Other disorders of lung, R91.8 - Other nonspecific abnormal finding of lung field, T78.40XA - Allergy, unspecified, initial encounter Immunoglobulin E Today J45.909 - Unspecified asthma, uncomplicated, J47.9 - Bronchiectasis, uncomplicated, J98.4 - Other disorders of lung, T78.40XA - Allergy, unspecified, initial encounter Erythrocyte Sedimentation Rate Today J45.909 - Unspecified asthma, uncomplicated, J47.9 - Bronchiectasis, uncomplicated, J98.4 - Other disorders of lung, T78.40XA - Allergy, unspecified, initial encounter Resp Allergy Profile Region I Today J45.909 - Unspecified asthma, uncomplicated, J47.9 - Bronchiectasis, uncomplicated, J98.4 - Other disorders of lung, R91.1 - Solitary pulmonary nodule, T78.40XA - Allergy, unspecified, initial encounter CT chest wo IV con Today J47.9 - Bronchiectasis, uncomplicated, J98.4 - Other disorders of lung PFT pulmonary function test Today J47.9 - Bronchiectasis, uncomplicated Sputum Cult + Gram stain Today R91.1 - Solitary pulmonary nodule Angiotensin Converting Enzyme Today J45.909 - Unspecified asthma, uncomplicated, J47.9 - Bronchiectasis, uncomplicated, J98.4 - Other disorders of lung, T78.40XA - Allergy, unspecified, initial encounter Basic Metabolic Panel Today J45.909 - Unspecified asthma, uncomplicated, J47.9 - Bronchiectasis, uncomplicated, J98.4 - Other disorders of lung, T78.40XA - Allergy, unspecified, initial encounter Immunoglobulins,IgG IgA IgM Today J45.909 - Unspecified asthma, uncomplicated, J47.9 - Bronchiectasis, uncomplicated, J98.4 - Other disorders of lung, T78.40XA - Allergy, unspecified, initial encounter Sjogren's Antibodies Today J45.909 - Unspecified asthma, uncomplicated, J47.9 - Bronchiectasis, uncomplicated, J98.4 - Other disorders of lung, T78.40XA - Allergy, unspecified, initial encounter HIV Ab/Ag Today J45.909 - Unspecified asthma, uncomplicated, J47.9 - Bronchiectasis, uncomplicated, J98.4 - Other disorders of lung, T78.40XA - Allergy, unspecified, initial encounter Medications: New 2 albuterol sulfate 2.5 mg (3 mL) inhalation Q4H PRN 180 mL 11RF shortness of breath or wheezing 30 days fluticasone furoate-vilanterol 200-25 mcg/dose (Breo Ellipta) 1 inh inhalation DAILY 60 ea 11RF 30 days amoxicillin-pot clavulanate 875-125 mg 1 tab PO BID 28 tabs 0RF 14 days prednisone PO daily; Take 2 tabs daily x 5 days, then 1 tablet daily x 5 days 15 tabs 0RF 10 days Discontinued 2 amoxicillin-pot clavulanate 875-125 mg Discontinued Reason: Patient Completed Course 1 tab PO Q12H 13 tabs 0RF Coding Level of Care Code New Pt Level 5 (01212) Diagnoses Bronchiolectasis J47.9 Cystic-bullous disease of lung J98.4 Moderate persistent asthma with acute exacerbation J45.41 Asthma severity: moderate Asthma persistence: persistent Asthma complication type: with acute exacerbation Allergy, initial encounter T78.40XA Encounter type: initial encounter Time Spent (min) 60
[2025-05-09 13:25] VITALS: BP 136/70; PULSE 74; O2SAT 97; BMI 27.6
--- OUTSIDE RECORDS SUMMARY | 2025-05-09 16:26 | XMS_ITS | Clinical Summary ---
Author Organization [employer] Address [address] [facility] [address] [place] [address] Care Team Providers Care Second Vp Hr Assessment Name Role Phone Sharon Garza [facility] Primary Care Provider [phone] Allergies No known active allergies Medications fluticasone (Flonase) 50 MCG/ACT nasal sprayIndications :Dyspnea, unspecified type Administer 1 spray into each nostril Once per day. Shake gently. Before first use, prime pump. After use, clean tip and replace cap. 16 g 2 5 03/29/20 26 Active albuterol 108 (90 Base) MCG/ACT inhalerIndicatio ns:Dyspnea, unspecified type Inhale 2 puffs every 4 (four) hours if needed for wheezing. 18 g 1 5 Active loratadine (Claritin) 10 MG tablet Take 1 tablet (10 mg) by mouth Once per day. 90 tablet 3 5 03/29/20 26 Active Active Problems Problem Noted Date Diagnosed Date Dyspnea, unspecified 04/13/2025 Hepatitis C virus infection without hepatic coma 04/13/2025 Cough with hemoptysis 04/13/2025 Encounters Date Type Department Care Team Description 05/09/2025 Orders Only GENERIC EXTERNAL DATA DEPARTMENT Provider, Generic External Data 04/22/2025 Orders Only [facility] [address] [place] [phone] Pat Garcia, DEISI Hepatitis C virus infection without hepatic coma, unspecified chronicity (Primary Dx) 04/14/2025 Telephone [facility] [address] [place] [address] Janae Samaniego RN 04/14/2025 Telephone [facility] [address] [place], [place] [phone] Charmaine Carrasquillo, RN Hep C Management 04/14/[address] [address] Janae Samaniego RN 04/13/2025 9:30 AM EDT Office Visit [address] [address] Sharon Garza FNP Dyspnea, unspecified type (Primary Dx); Cough with expectoration; Cough with hemoptysis; Hepatitis C virus infection without hepatic coma, unspecified chronicity 04/13/[address] [address] Janae Samaniego RN 04/13/2025 Travel 04/12/2025 Telephone [facility] [address] [place] [address] Sharon Garza FNP Chart Prep 03/29/2025 10:30 AM EDT Office Visit [address] [address] Sharon Garza FNP Encounter for adult wellness visit (Primary Dx); Encounter for immunization; Dyspnea, unspecified type; Overweight; Dietary counseling; Exercise counseling 03/29/2025 Orders Only [address] [address] Shaorn Garza FNP 03/29/2025 Travel 03/25/[address] [address] Sharon Garza FNP CHARTPREP 03/22/2025 Patient Outreach [facility] [address] [place] [address] Sharon Garza FNP Pre-visit Planning ([facility] unable to reach [facility]) from Last 3 Months Immunizations Immunization Administration [...] 3-dose series) 1997 COVID-19 Vaccine (1 - 2023-2 5 season) 2025 Influenza Vaccine (#1) 2025 [...] Procedure Name Priority Date/Time Associated Diagnosis Comments BASIC METABOLIC PANEL Routine 05/09/2025 2:28 PM EDT SED RATE BY MODIFIED WESTERGREN Routine 05/09/2025 2:28 PM EDT CBC WITH AUTO DIFFERENTIAL Routine 05/09/2025 2:28 PM EDT GRAM STAIN RESULT (NON ORDERABLE) Routine 05/09/2025 1:22 PM EDT HEPATITIS C VIRAL RNA GENOTYPE, LIPA Routine 04/15/2025 3:22 PM EDT HEPATITIS A ANTIBODY, TOTAL Routine 04/15/2025 3:22 PM EDT LIVER FIBROSIS, FIBROTEST ACTITEST PANEL Routine 04/15/2025 3:22 PM EDT PROTHROMBIN TIME-INR Routine 04/15/2025 3:22 PM EDT T-SPOT(R).TB Routine 04/15/2025 3:22 PM EDT Cough with expectoration Cough with hemoptysis XR CHEST 2 VIEWS Routine 04/13/2025 10:4 [...] Months Results * (ABNORMAL) CBC auto differential (05/09/2025 2:28 PM EDT) Only the most recent of2 resultswithin the time period is included. White Blood Count 8.2 4.8 - 10.8 X10*3/uL [facility] Red Blood Count 4.54(L) 4.60 - 5.80 X10*6/uL [facility] Hemoglobin 14.0 14.0 - 18.0 g/dl [facility] Hematocrit 40.6(L) 42.0 - 52.0 % [facility] Mean Corpuscular Volume 89.4 80.0 - 98.0 fL [facility] Mean Corpuscular Hemoglobin 30.8 27.0 - 33.0 pg [facility] Mean Corpuscular HGB Conc 34.5 31.0 - 36.0 g/dl [facility] Red Cell Distribution Width 14.0 11.0 - 16.0 % [facility] Platelet Count 159(L) 160 - 400 X10*3/uL [facility] Mean Platelet Volume 11.3 9.4 - 12.4 fL [facility] Neutrophils Percent Auto 63.3 45 - 73 % [facility] Imm Gran Pct Auto 0.2 0.0 - 0.4 % [facility] Lymphocytes Percent Auto 25.0 20 - 40 % [facility] Monocytes Percent Auto 9.5 2 - 11 % [facility] Eosinophils Percent Auto 1.5 0 - 4 % [facility] Basophils Percent Auto 0.5 0 - 2 % [facility] NRBC Pct Auto 0.0 0.0 - 0.2 /100WBC [facility] Neutrophils Absolute Auto 5.2 2.0 - 8.3 x10*3/uL [facility] Imm Gran Abs Auto 0.02 0.00 - 0.03 X10*3/uL [facility] Lymphocytes Absolute Auto 2.1 1.2 - 4.9 X10*3/uL [facility] Monocytes Absolute Auto 0.8 0.1 - 1.2 X10*3/uL [facility] Eosinophils Absolute Auto 0.1 0.0 - 0.4 X10*3/uL [facility] Basophils Absolute Auto 0.0 0.0 - 0.2 X10*3/uL [facility] NRBC Abs Auto 0.000 0.0 - 0.012 X10*3/uL [facility] 05/09/2025 2:28 PM EDT 05/09/2025 2:28 PM EDT us Generic External Data Provider LAB BLOOD ORDERAB LES Final Result [facility] [address] [place], [place] [phone] * Sed Rate by Modified Fabio (05/09/2025 2:28 PM EDT) Erythrocyte Sedimentation Rate 14 0 - 15 MM/HR [facility] Comment:Patients with polycy themia and many hemoglobin abnormalitiesmay have depressed sed rates whereas patients with anemiamay have elevated sed rates. 05/09/2025 2:28 PM EDT 05/09/2025 2:28 PM EDT us Generic External Data Provider LAB BLOOD ORDERAB LES Final Result Performing Organization Address [facility]/ZIP Co de Phone Number [facility] [address] [place] [phone] * (ABNORMAL) Basic Metabolic Panel (05/09/2025 2:28 PM EDT) Sodium 141 135 - 145 mmol/L [facility] Potassium 3.9 3.3 - 5.1 mmol/L [facility] Chloride 106 96 - 108 mmol/L [facility] Carbon Dioxide 28 22 - 29 mmol/L [facility] Anion Gap 11(L) 12 - 20 [facility] Urea Nitrogen (BUN) 18(H) 9 - 16 mg/dL [facility] Creatinine, Serum 1.04 0.5 - 1.4 mg/dL [facility] Estimated Glomerular Filt Rate >60 [facility] Comment:Chronic Kidney Disea se: Estimated GFR < 60 mL/min/1.67n8Ezpfqp Kidney Disease: Estimated GFR < 15 mL/min/1.73m2 Glucose 108 60 - 115 mg/dL [facility] Calcium 8.9 8.4 - 10.2 mg/dL [facility] 05/09/2025 2:28 PM EDT 05/09/2025 2:28 PM EDT us Generic External Data Provider LAB BLOOD ORDERAB LES Final Result Performing Organization Address [facility]/ZIP Co de Phone Number [facility] [address] [place] [address] [phone] * Gram Stain Result (05/09/2025 1:22 PM EDT) 05/09/2025 1:22 PM EDT 05/09/2025 2:27 PM EDT Comment:Sputum Narrative [facility] - 05/09/2025 3:25 PM EDT Gram stain results: No polys 3+ Gram-negative rods Specimen Source: Sputum us Generic External Data Provider HISTORICAL/NON OR DERABLE LABS Final Result [facility] [address] [place] [phone] * T-SPOT??.TB (04/15/2025 3:22 PM EDT) [facility] T Spot TB Negative Negative [facility] Comment:A negative test resu lt does not exclude the possibilityof exposure to or infection with Mycobacteriumtuberculosis (M. tuberculosis). Patients with recentexposure to TB infected individuals exhibiting anegative T-SPOT.TB result should be considered forretesting within 6 weeks or if other relevant clinicalsymptoms indicate. Results from T-SPOT.TB testing mustbe used in conjunction with each individual'sepidemiological history, current medical status,and results of other diagnostic evaluations.The T-SPOT.TB test is qualitative and results arereported as positive, borderline, or negative, giventhat the test controls perform as expected. In linewith the Centers for Disease Control and Prevention's2010 recommendation to report quantitative measurementsalongside the qualitative result, the laboratoryprovides spot counts for informational purposes only.The T-SPOT.TB test should not be interpreted as aquantitative test. TS PANEL A 1 [facility] TS PANEL B 1 [facility] Negative Control Passed [facility] Positive Control Passed [facility] Comment:For additional infor antonio, please refer tohttp://education.[employer]faq/MXC468(This link is being provided for informational/educational purposes only.)THIS TEST WAS PERFORMED AT:[employer] [id number] [place] [phone] GÓMEZ MD,PHD 04/15/2025 3:22 PM EDT 04/15/2025 3:57 PM EDT us Sharon Garza WARRANT SERVER LAB BLOOD ORDERABLES Final Res ult [facility] [address] [place] [phone] [phone] * (ABNORMAL) Liver Fibrosis (HCV), FibroTest-ActiTest Panel (04/15/2025 3:22 PM EDT) Liver Fibrosis Score 0.88 [facility] Liver Fibrosis Stage F4 [facility] Liver Fibrosis Interpretation SEE NOTE [facility] Comment:severe fibrosisFibro Test Score (f) Metavir Score f>=0 and f<=0.21 : F0 (no fibrosis)f>0.21 and f<=0.27 : F0-F1 (no fibrosis)f>0.27 and f<=0.31 : F1 (minimal fibrosis)f>0.31 and f<=0.48 : F1-F2 (minimal fibrosis)f>0.48 and f<=0.58 : F2 (moderate fibrosis)f>0.58 and f<=0.72 : F3 (advanced fibrosis)f>0.72 and f<=0.74 : F3-F4 (advanced fibrosis)f>0.74 and f<=1.00 : F4 (severe fibrosis) Nec Inflam Act Score 0.72 [facility] Nec Inflam Act Grade A3 [facility] Nec Inflam Act Interpretation SEE NOTE [facility] Comment:severe activityActiT est Score (a) Metavir Score a>=0 and a<=0.17 : A0 (no activity)a>0.17 and a<=0.29 : A0-A1 (no activity)a>0.29 and a<=0.36 : A1 (minimal activity)a>0.36 and a<=0.52 : A1-A2 (minimal activity)a>0.52 and a<=0.60 : A2 (significant activity)a>0.60 and a<=0.62 : A2-A3 (significant activity)a>0.62 and a<=1.00 : A3 (severe activity) BKL-Mucrx-3-Macroglo bulin 464(A) 106 - 279 mg/dL [facility] FIB-Haptoglobin 40(A) 43 - 212 mg/dL [facility] FIB-Apolipoprotein A1 127 94 - 176 mg/dL [facility] FIB-Total Bilirubin 0.6 0.2 - 1.2 mg/dL [facility] FIB-GGT 140(A) 3 - 95 U/L [facility] FIB-ALT 89(A) 9 - 46 U/L [facility] Reference ID [id number] [facility] Footnote SEE NOTE [facility] Comment: The reliability of results is dependent on compliance withthe preanalytical and analytical conditions recommended byBio[employer]ict[employer]. The tests have to be deferred for: acutehemolysis, acute hepatitis, acute inflammation, extrahepatic cholestasis. The advice of a specialist should besought for interpretation in chronic hemolysis and Gilbert'ssyndrome. The test interpretation is not validated in livertransplant patients. Isolated extreme values of one of thecomponents should lead to caution in interpreting theresults. In case of discordance between a biopsy result annia test, it is recommended to seek the advice of aspecialist. The causes of these discordances could be due toa flaw of the test or to a flaw in the biopsy: i.e. a liverbiopsy has a 33% variability rate for one fibrosis stage.FibroTest is interpretable for chronic hepatitis B and C,alcoholic and non alcoholic steatosis. ActiTest isinterpretable for chronic hepatitis B and C.The performance characteristics have been determined by[employer] [facility]. Ithas not been cleared or approved by the U.S. Food and DrugAdministration. Performance characteristics refer to theanalytical performance of the test.[employer], the associated logo, [employer] and all associated [employer] pereira are theregistered trademarks of [employer]. All third partymarks - (R) and (TM) - are the property of their respectiveowners. (C) 2991-4939 [employer]. Allrights reserved.THIS TEST WAS PERFORMED AT:[employer] [id number] [place] [address]TLYAUSTEF IBANEZ MD,PHD,CHINMAY 04/15/2025 3:22 PM EDT 04/15/2025 4:03 PM EDT [facility] LAB BLOOD ORDERABLES Final Res ult Performing Organization Address [facility] Co de Phone Number [facility] [address] [place] [phone] * Hepatitis A Antibody, Total (04/15/2025 3:22 PM EDT) Hepatitis A Antibody IgG REACTIVE Nonreactive [facility] Comment:The presence of IgG anti-HAV implies past HAV infection(recent or distant) or vaccination against HAV. 04/15/2025 3:22 PM EDT 04/15/2025 4:03 PM EDT [facility] LAB BLOOD ORDERABLES Final Res ult Performing Organization Address [facility] Co de Phone Number [facility] [address] [place] [phone] * Hepatitis C Viral RNA, Genotype, LiPA (04/15/2025 3:22 PM EDT) Hepatitis C Genotype 1a Not Detected [facility] Comment:The methods used in this test are RT-PCR and DNASequencing of the 5' UTR and core region of the HCVgenome.For additional information, please refer tohttp://education.[employer]/faq/HCVGenotyping(This link is being provided for informational/educational purposes only.)This test was developed and its analytical performancecharacteristics have been determined by [employer]. It has not been cleared or approved bythe FDA. The assay has been validated pursuant to theCLIA regulations and is used for clinical purposes.THIS TEST WAS PERFORMED AT:[employer]/[facility]KREST. [id number] [place] [address]PZSKSUDNIKOLAS GÓMEZ MD,PHD 04/15/2025 3:22 PM EDT 04/15/2025 4:03 PM EDT [facility] LAB BLOOD ORDERABLES Final Res ult Performing Organization Address City/[facility]/ZIP Co de Phone Number [facility] [address] [place] [phone] * (ABNORMAL) Prothrombin Time-INR (04/15/2025 3:22 PM EDT) Prothrombin Time 12.7(H) 10.9 - 12.4 SEC [facility] INTERNATIONAL NORM RATIO 1.1 0.9 - 1.1 [facility] Comment:INTERNATIONAL NORMAL IZED RATIO (INR) REFERENCE RANGES Reference RangeFor patients not on anticoagulant therapy: 0.9 - 1.1INR ranges for oral anticoagulanttherapy:For prevention and treatment of venous thrombosis and pulmonary embolism: 2.0 - 3.0For acute myocardial infarction with aspirin therapy: 2.0 - 3.0For acute myocardial infarction without aspirin therapy: 3.0 - 4.0For patients with mechanical prosthetic heart valves: 2.5 - 3.5 04/15/2025 3:22 PM EDT 04/15/2025 3:57 PM EDT [facility] BLOOD ORDERABLES Final Res ult Performing Organization Address [facility] Co de Phone Number [facility] [address] [place] [phone] * XR Chest 2 Views (04/13/2025 10:40 AM EDT) Anatomical Region Laterality Modality Chest Radiographic Jo ging 04/13/2025 10:4 0 AM EDT Narrative 04/13/2025 11:05 AM EDT [address] [address] XRay Report Signed Patient: Blake Norris MR#: [id number] 48 : 1980 Acct:[id number] Age/Sex: 44 / M ADM Date: 04/13/25 Loc: .[facility] Attending Dr: Sharon ROUSSEAU Ordering Physician: Sharon Garza Date of Service: 04/13/25 Procedure(s): XR chest 2V Accession Number(s): [id number] cc: Sharon Garza Reason for Exam: coughing [...] 04/13/25 1102 DD/ 1040 TD/TT: 04/13/25 1050 Manager Sales Training: Procedure Note Donotuseinterpreter, Image - 04/13/[address] [address] XRay Report Signed Patient: Lucia Norris#: [id number] 48 : 1980Acct:[id number] Age/Sex: 44 / MADM Date: 04/13/25 Loc: .[facility] Attending Dr: Sharon ROUSSEAU Ordering Physician: Sharon Garza Date of Service: 04/13/25 Procedure(s): XR chest 2V Accession Number(s): [id number] cc: Sharon Garza Reason for Exam: coughing [...] 04/13/25 1102 DD/ 1040 TD/TT: 04/13/25 1050 Manager Sales Training: [facility] IMG XR PROCEDURES Final Result * Chlamydia/N. Gonorrhoeae, PCR, Urine (03/29/2025 11:55 AM EDT) CT PCR, Urine NOT DETECTED Not Detect. [facility] Comment:A not detected test result [...] NG PCR, Urine NOT DETECTED Not Detect. [facility] Comment:A not detected test result [...] 11:55 AM EDT 03/29/2025 1:19 PM EDT [facility] LAB URINE ORDERABLES Final Res ult [facility] [address] [place] [phone] * (ABNORMAL) Vitamin D, 25-Hydroxy, Total, Immunoassay (03/29/2025 11:55 AM EDT) Vitamin D 25-OH Total 26.9(L) >30 ng/mL [facility] Comment: Health Based Reference Values*< 20 ng/mL Cehucbkpz16-70 ng/mL Insufficient> 30 ng/mL Sufficient*Erin PULIDO. N [...] 03/29/2025 1:04 PM EDT us Sharon Garza [facility] LAB BLOOD ORDERABLES Final Res ult [facility] [address] [place] [phone] * (ABNORMAL) Hepatitis C Viral RNA, Quantitative, Real-Time PCR (03/29/2025 11:55 AM EDT) Pathologist [facility] Hepatitis C Viral Load [id number](A ) NOT DETECTED IU/mL [facility] HCV Log PCR 6.54(A) NOT DETECTED Log IU/mL [facility] Comment:For additional infor antonio, please refer tohttp://education.[employer]faq/FOK11j2(This link is being provided for informational/educational purposes only.)THIS TEST WAS PERFORMED AT:[employer] [place] [id number] DILLON MD 03/29/2025 11:5 5 AM EDT 03/30/2025 10:37 AM EDT [facility] LAB BLOOD ORDERABLES Final Res ult Performing Organization Address [facility]/ZIP Co de Phone Number [facility] [address] [place] [phone] * (ABNORMAL) Hepatitis C Antibody with Reflex to HCV, RNA, Quantitative, Real- Time PCR (03/29/2025 11:55 AM EDT) Hepatitis C Antibody Reactive( A) Nonreactive [facility] Comment:Presumptive evidence of antibodies to HCV. Blood Venous blood specimen / Unknown 03/29/2025 11:55 AM EDT 03/29/2025 1:04 PM EDT Sharon [facility] LAB BLOOD ORDERABLES Final Res ult Performing Organization Address [facility] Co de Phone Number [facility] [address] [place] [phone] * Hepatitis B surface antigen, EIA (03/29/2025 11:55 AM EDT) Hepatitis B Surface Ag Negative Negative [facility] Blood Venous blood specimen / Unknown 03/29/2025 11:55 AM EDT 03/29/2025 1:04 PM EDT Sharon [facility] LAB BLOOD ORDERABLES Final Res ult Performing Organization Address [facility] Co de Phone Number [facility] [address] [place] [phone] * Hepatitis B Core Antibody, Total (03/29/2025 11:55 AM EDT) [facility] Hepatitis B Core Antibody Nonreactive Nonreactive [facility] Blood Venous blood specimen / Unknown 03/29/2025 11:55 AM EDT 03/29/2025 1:04 PM EDT [facility] LAB BLOOD ORDERABLES Final Res ult Performing Organization Address [facility]/ZIP Co de Phone Number [facility] [address] [place] [phone] * HIV-1/2 Antigen and Antibodies, Fourth Generation, with Reflexes (03/29/2025 11:55 AM EDT) [facility] HIV AB/AG Nonreactive Nonreactive [facility] Comment:HIV-1 p24 Ag and/or HIV-1/HIV-2 Ab not detected.A test result that is nonreactive does not exclude thepossibility of exposure to or infection with HIV-1 and/orHIV-2. Nonreactive results in this assay for individualswith prior exposure to HIV-1 and/or HIV-2 may be due toantigen and antibody levels that are below the limit ofdetection of this assay.The [employer] CSHub HIV Ag/Ab Combo assay result andsupplemental assay results should be interpreted inconjunction with the patient's clinical presentation,history and other laboratory results. If the results areinconsistent with clinical evidence, additional testing issuggested to confirm the result. Blood Venous blood specimen / Unknown 03/29/2025 11:55 AM EDT 03/29/2025 1:04 PM EDT [facility] LAB BLOOD ORDERABLES Final Res ult Performing Organization Address [facility]/ZIP Co de Phone Number [facility] [address] [place] [phone] * Hepatitis B Surface Antibody, Qualitative (03/29/2025 11:55 AM EDT) ~Hepatitis B Surface Antibody REACTIVE Nonreactive [facility] Comment:REACTIVE: > 11.99 mI U/mL Blood Venous blood specimen / Unknown 03/29/2025 11:55 AM EDT 03/29/2025 1:04 PM EDT [facility] LAB BLOOD ORDERABLES Final Res ult Performing Organization Address [facility] de Phone Number [facility] [address] [place] [phone] * TSH (03/29/2025 11:55 AM EDT) Pathologist [facility] Thyroid Stimulating Hormone 3.62 0.32 - 4.0 uIU/mL [facility] Comment:Note: A sustained TS H level above 2.5 uIU/mL may warrant further investigation. TSH 3rd Generation ([facility]) Blood Venous blood specimen / Unknown 03/29/2025 11:55 AM EDT 03/29/2025 1:04 PM EDT [facility] LAB BLOOD ORDERABLES Final Res ult Performing Organization Address [facility] Number [facility] [address] [place] [phone] * PSA,Total (03/29/2025 11:55 AM EDT) Pathologist [facility] Prostate Specific Antigen 0.68 <0.05 - 4.0 ng/mL [facility] Comment:PSA methodology: Abb chuyita Alijustinty i ChemiluminescentMicroparticle Immunoassay (CMIA) Blood Venous blood specimen / Unknown 03/29/2025 11:55 AM EDT 03/29/2025 1:04 PM EDT [facility] BLOOD ORDERABLES Final Res ult Performing Organization Address [facility] Phone Number [facility] [address] [place] [phone] * Hemoglobin A1c (03/29/2025 11:55 AM EDT) Hemoglobin A1c 5.0 <6.0 % [facility] Comment:Hemoglobin A1C Refer ence Range Adults: 4.8 - 6.0 % Non diabetic: < 6.0 % Goal: < 7.0 %Additional Action Suggested: > 8.0 %Note: Hemoglobin A1c results are invalid for patients with abnormal amounts of HbF. Blood transfusions may impact the HbA1c concentration in the patient sample. Estimated Average Glucose 97 mg/dL [facility] Comment:eAG = Estimated ave rage glucose which is %A1C expressed asaverage glucose, using the formula of the A1C-AkboqisIaywpmn Glucose study (ADAG), Diabetes Care, Vol.31,#8,Feb. 2007 Blood Venous blood specimen / Unknown 03/29/2025 11:55 AM EDT 03/29/2025 1:04 PM EDT us Sharon Garza WARRANT SERVER LAB BLOOD ORDERABLES Final Res ult [facility] [address] [place] [phone] * (ABNORMAL) Lipid Panel, Standard (03/29/2025 11:55 AM EDT) Triglycerides 175(H) <150 mg/dL [facility] Comment:Desirable Triglyceri de: less than 150 mg/dLBorderline High Triglyceride 150-199 mg/dLHigh Triglyceride: 200-499 mg/dLVery High Triglyceride: greater than or equal to 5OO mg/dL Cholesterol 127 <200 mg/dL [facility] Comment:Desirable Cholestero l: less than 200 mg/dLBorderline High Cholesterol: 200-239 mg/dLHigh Cholesterol: greater than 239 mg/dL LDL Cholesterol Calculated 56 <100 mg/dL [facility] Comment:Desirable LDL: less than 100 mg/dLNear Optimal/Above Optimal LDL: 110- 129 mg/dLBorderline High LDL: 130-159 mg/dLHigh LDL: 160-189 mg/dLVery High LDL: greater than or equal to 190 mg/dL HDL Cholesterol 36(L) >40 mg/dL [facility] Comment:Desirable HDL: great er than 40 mg/dL Note: This HDL assay may give artificially low results in patients with liver disease. Blood Venous blood specimen / Unknown 03/29/2025 11:55 AM EDT 03/29/2025 1:04 PM EDT us Sharon Oksun [employer] SERV[employer] LAB BLOOD ORDERABLES Final Res ult [facility] [address] [place] [phone] * (ABNORMAL) Comprehensive Metabolic Panel (03/29/2025 11:55 AM EDT) Sodium 140 135 - 145 mmol/L [facility] Potassium 4.5 3.3 - 5.1 mmol/L [facility] Chloride 102 96 - 108 mmol/L [facility] Carbon Dioxide 31(H) 22 - 29 mmol/L [facility] Anion Gap 12 12 - 20 [facility] Urea Nitrogen (BUN) 15 9 - 16 mg/dL [facility] Creatinine, Serum 0.88 0.5 - 1.4 mg/dL [facility] Estimated Glomerular Filt Rate >60 [facility] Comment:Chronic Kidney Disea se: Estimated GFR < 60 mL/min/1.69e6Vrfuag Kidney Disease: Estimated GFR < 15 mL/min/1.73m2 Glucose 80 60 - 115 mg/dL [facility] Calcium 9.1 8.4 - 10.2 mg/dL [facility] Bilirubin, Total 1.0 0.0 - 1.0 mg/dL [facility] Aspartate Amino Transferase 174(H) 5 - 37 U/L [facility] Alanine Aminotransferase 152(H) 0 - 40 U/L [facility] Total Protein 8.2(H) 6.5 - 8.0 g/dL [facility] Albumin Level 3.9 3.5 - 5.0 g/dL [facility] Alkaline Phosphatase 158(H) 39 - 117 U/L [facility] Blood Venous blood specimen / Unknown 03/29/2025 11:55 AM EDT 03/29/2025 1:04 PM EDT us Sharon ROUSSEAU LAB BLOOD ORDERABLES Final Res ult [facility] [address] [place] [phone] from Last 3 Months Insurance [facility] 3 Care Teams Second Vp Hr Assessment Relationship Specialty Start Date End Date Sharon Garza FNP [address] [place] [address] PCP - General Family Medicine 03/25/25
--- OUTSIDE RECORDS SUMMARY | 2025-05-09 16:26 | XMS_ITS | Encounter Summary ---
Author Organization [employer] Address [address] [place] [address] Care Team Providers Care Cheese [employer] Worker Name Role Phone Sharon Garza [facility] Primary Care Provider [phone] Encounter Details Date Type Department Care Team (Late st Contact Info) Description 05/09/2025 Orders Only GENERIC EXTERNAL DATA DEPARTMENT Provider, Generic External Data Social History Tobacco Use Types Packs/Day Years [...] Diagnosis Comments CBC WITH AUTO DIFFERENTIAL Routine 05/09/2025 2:28 PM EDT SED RATE BY MODIFIED WESTERGREN Routine 05/09/2025 2:28 PM EDT BASIC METABOLIC PANEL Routine 05/09/2025 2:28 PM EDT GRAM STAIN RESULT (NON ORDERABLE) Routine 05/09/2025 1:22 PM EDT documented in this encounter Results * (ABNORMAL) Basic Metabolic Panel (05/09/2025 2:28 PM EDT) Sodium 141 135 - 145 mmol/L [facility] Potassium 3.9 3.3 - 5.1 mmol/L [facility] Chloride 106 96 - 108 mmol/L [facility] Carbon Dioxide 28 22 - 29 mmol/L [facility] Anion Gap 11(L) 12 - 20 [facility] Urea Nitrogen (BUN) 18(H) 9 - 16 mg/dL [facility] Creatinine, Serum 1.04 0.5 - 1.4 mg/dL [facility] Estimated Glomerular Filt Rate >60 [facility] Comment:Chronic Kidney Disea se: Estimated GFR < 60 mL/min/1.40u6Vekrix Kidney Disease: Estimated GFR < 15 mL/min/1.73m2 Glucose 108 60 - 115 mg/dL [facility] Calcium 8.9 8.4 - 10.2 mg/dL [facility] 05/09/2025 2:28 PM EDT 05/09/2025 2:28 PM EDT us Generic External Data Provider LAB BLOOD ORDERAB LES Final Result [facility] [address] [place] [phone] * Sed Rate by Modified Westergren (05/09/2025 2:28 PM EDT) [facility] Erythrocyte Sedimentation Rate 14 0 - 15 MM/HR [facility] Comment:Patients with polycy themia and many hemoglobin abnormalitiesmay have depressed sed rates whereas patients with anemiamay have elevated sed rates. 05/09/2025 2:28 PM EDT 05/09/2025 2:28 PM EDT us Generic External Data Provider LAB BLOOD ORDERAB LES Final Result [facility] [address] [place] [phone] * (ABNORMAL) CBC auto differential (05/09/2025 2:28 PM EDT) [facility] White Blood Count 8.2 4.8 - 10.8 X10*3/uL [facility] Red Blood Count 4.54(L) 4.60 - 5.80 X10*6/uL [facility] Hemoglobin 14.0 14.0 - 18.0 g/dl [facility] Hematocrit 40.6(L) 42.0 - 52.0 % [facility] Mean Corpuscular Volume 89.4 80.0 - 98.0 fL [facility] Mean Corpuscular Hemoglobin 30.8 27.0 - 33.0 pg [facility] Mean Corpuscular HGB Conc 34.5 31.0 - 36.0 g/dl [facility] Red Cell Distribution Width 14.0 11.0 - 16.0 % [facility] Platelet Count 159(L) 160 - 400 X10*3/uL [facility] Mean Platelet Volume 11.3 9.4 - 12.4 fL [facility] Neutrophils Percent Auto 63.3 45 - 73 % [facility] Imm Gran Pct Auto 0.2 0.0 - 0.4 % [facility] Lymphocytes Percent Auto 25.0 20 - 40 % [facility] Monocytes Percent Auto 9.5 2 - 11 % [facility] Eosinophils Percent Auto 1.5 0 - 4 % [facility] Basophils Percent Auto 0.5 0 - 2 % [facility] NRBC Pct Auto 0.0 0.0 - 0.2 /100WBC [facility] Neutrophils Absolute Auto 5.2 2.0 - 8.3 x10*3/uL [facility] Imm Gran Abs Auto 0.02 0.00 - 0.03 X10*3/uL [facility] Lymphocytes Absolute Auto 2.1 1.2 - 4.9 X10*3/uL [facility] Monocytes Absolute Auto 0.8 0.1 - 1.2 X10*3/uL [facility] Eosinophils Absolute Auto 0.1 0.0 - 0.4 X10*3/uL [facility] Basophils Absolute Auto 0.0 0.0 - 0.2 X10*3/uL [facility] NRBC Abs Auto 0.000 0.0 - 0.012 X10*3/uL [facility] 05/09/2025 2:28 PM EDT 05/09/2025 2:28 PM EDT us Generic External Data Provider LAB BLOOD ORDERAB LES Final Result Performing Organization Address [facility]/ZIP Co de Phone Number [facility] [address] [place] [phone] * Gram Stain Result (05/09/2025 1:22 PM EDT) 05/09/2025 1:22 PM EDT 05/09/2025 2:27 PM EDT Comment:Sputum Narrative [facility] - 05/09/2025 3:25 PM EDT Gram stain results: No polys 3+ Gram-negative rods Specimen Source: Sputum Generic External Data Provider HISTORICAL/NON OR DERABLE LABS Final Result Performing Organization Address City/[facility] Co de Phone Number [facility] [address] [place] [address] [phone] documented in this encounter Visit Diagnoses Not on filedocumented in this encounter Care Teams Cheese [employer] Worker Relationship Specialty Start Date End Date Sharon Garza FNP [address] [place] [phone] PCP - General Family Medicine 03/25/25 documented as of this encounter
== END 2025-05-09 14:05 | disposition home or self-care (01) ==
LOC: HO.HPS 13:23
PROVIDERS: PCP Nurse Practitioner Family; Visit Provider Hospitalist
DX: J47.9 Bronchiectasis, uncomplicated (principal); J98.4 Other disorders of lung; J45.41 Moderate persistent asthma with (acute) exacerbation; T78.40XA Allergy, unspecified, initial encounter
CPT/HCPCS: 99205

== ENCOUNTER 2025-06-10 08:58 | Outpatient (REF) | payer OTHER, SELFPAY ==
--- NOTE | ~2025-06-10 | CT_ITS ---
EXAMINATION: CT CHEST WITHOUT CONTRAST CLINICAL INFORMATION: J 47.9. Bronchiectasis, uncomplicated. COMPARISON: Correlated to CT abdomen pelvis dated March 29, 2024. TECHNIQUE: Multidetector volumetric CT imaging of the chest was done. Axial MIP volume rendering provided. Sagittal and coronal reformatted images were obtained. This CT examination was performed using dose optimization techniques as appropriate, variously including the following: *Automated exposure control *Adjustment of mA and/or kV according to patient size (this includes techniques or standardized protocols for targeted exams where dose is matched to indication/reason for exam; i.e. extremities or head) *Use of iterative reconstruction technique DLP: 152 mGy-cm FINDINGS: MINUTE CLERK FOR BASIC TRAFFIC: No hyperinflation. Heart silhouette size is normal. S-shaped curvature of the thoracolumbar spine. Abnormal lungs. LUNGS: There are numerous, different sizes, circular shaped, irregular thick wall, predominantly gas-filled abnormalities extending from the pulmonary hilum to the peripheral upper and lower lung lobes. Paraseptal emphysematous changes in the upper and to a lesser extent lower lung lobes. No hyperinflation. MEDIASTINUM: No mediastinal lymphadenopathy mild prominent mediastinal lymph nodes. No aneurysm, thoracic aorta. Calcified plaque in the inferior aortic arch. Heart is not enlarged. No pericardial effusion. No pneumomediastinum. No hemopericardium. Thyroid gland is not enlarged. CORONARY ARTERY CALCIFICATION: None visualized on this study. PLEURA: No pleural effusion. No pneumothorax. No calcified pleural plaques. No hemothorax. AXILLA: No lymphadenopathy. UPPER ABDOMEN: No gross abnormality. OSSEOUS STRUCTURES: Mild lower thoracic spondylosis. No acute fracture or listhesis. No lytic or blastic lesions. No acute rib fracture. Vacuum phenomenon, right adrenal humeral joint. CT/CT chest wo IV con IMPRESSION: Extensive bilateral cystic bronchiectasis with questionable superimposed inflammatory versus infectious process. Consider idiopathic, allergic/autoimmune versus congenital etiology. Fleischner guidelines were followed. Electronically signed by: Tim Sidhu MD 06/10/2025 10:35 AM [facility]
--- OUTSIDE RECORDS SUMMARY | 2025-06-10 09:11 | XMS_ITS | Clinical Summary ---
Author Organization [employer] Address [address] [facility] [address] [place] [address] Care Team Providers Care Vp Revenue Cycle Name Role Phone Sharon Garza [facility] Primary Care Provider [phone] Allergies No known active allergies Medications fluticasone [...] Provider, Generic External Data 04/22/2025 Orders Only [facility] [address] [place] [phone] Pat Garcia, DEISI Hepatitis C virus infection without hepatic coma, unspecified chronicity (Primary Dx) 04/14/2025 Telephone [facility] [address] [place] [address] Janae Samaniego RN 04/14/2025 Telephone [facility] [address] [place], [place] [phone] Charmaine Carrasquillo, RN Hep C Management 04/14/[address] [address] Janae Samaniego RN 04/13/2025 9:30 AM EDT Office Visit [address] [address] Sharon Garza FNP Dyspnea, unspecified type (Primary Dx); Cough with expectoration; Cough with hemoptysis; Hepatitis C virus infection without hepatic coma, unspecified chronicity 04/13/[address] [address] Janae Samaniego RN 04/13/2025 Travel 04/12/2025 Telephone [facility] [address] [place] [address] Sharon Garza FNP Chart Prep 03/29/2025 10:30 AM EDT Office Visit [address] [address] Sharon Garza FNP Encounter for adult wellness visit (Primary Dx); Encounter for immunization; Dyspnea, unspecified type; Overweight; Dietary counseling; Exercise counseling 03/29/2025 Orders Only [address] [address] Sharon Garza FNP 03/29/2025 Travel 03/25/[address] [address] Sharon Garza FNP CHARTPREP 03/22/2025 Patient Outreach [facility] [address] [place] [address] Sharon Garza FNP Pre-visit Planning ([facility] unable to reach [facility]) from Last 3 Months Immunizations Immunization Administration [...] 3-dose series) 1997 COVID-19 Vaccine (1 - 2024-2 6 season) 2025 Influenza Vaccine (#1) 2025 Alcohol/Substance Use Screening 03/29/2026 03/29/2025 SDOH Screening 04/13/2026 04/13/2025 Tobacco Screening 04/13/2026 04/13/2025 Zoster Vaccines (1 of 2) 2028 Lipid Panel 03/29/2030 03/29/2025 DTaP/Tdap/Td Vaccines (2 - T d or Tdap) 03/29/2035 03/29/2025 RSV Patients and Patients Aged 60 years or older (1 - 1-dose 75+ series) 2053 HIV Screening Completed 05/09/2025, 03/29/2025 HIB Vaccines Aged Out No longer [...] Procedure Name Priority Date/Time Associated Diagnosis Comments ELIZABETH SCREEN, IFA, W/REFL TITER AND PATTERN Routine 05/09/2025 2:28 PM EDT HYPERSENSITIVITY PNUEMONITIS PROFILE Routine 05/09/2025 2:28 PM EDT RESPIRATORY ALLERGY PROFILE REGION I Routine 05/09/2025 2:28 PM EDT IMMUNOGLOBULIN E Routine 05/09/2025 2:28 PM EDT IZFOCYKFIBZ-1-ISGAPDRIZV ENZYME Routine 05/09/2025 2:28 PM EDT HIV 1/2 ANTIGEN/ANTIBODY, FOURTH GENERATION W/RFL Routine 05/09/2025 2:28 PM EDT ANCA VASCULITIDES Routine 05/09/2025 2:2 8 PM EDT SJOGREN'S ANTIBODIES (SS-A,SS-B) Routine 05/09/2025 2:28 PM EDT IMMUNOGLOBULINS, QUANTITATIVE, IGA, IGG, IGM Routine 05/09/2025 2:28 PM EDT BASIC METABOLIC PANEL Routine 05/09/2025 2:28 PM EDT SED RATE BY MODIFIED WESTERGREN Routine 05/09/2025 2:28 PM EDT CBC WITH AUTO DIFFERENTIAL Routine 05/09/2025 2:28 PM EDT GRAM STAIN RESULT (NON ORDERABLE) Routine 05/09/2025 1:22 PM EDT ACID-FAST SMEAR Routine 05/09/2025 1:22 PM EDT HEPATITIS C [...] for adult wellness visit VITAMIN D,25-OH,TOTAL,IA Routine 025 11:55 AM EDT Encounter for adult wellness [...] AM EDT Encounter for adult wellness visit CHLAMYDIA/TRICHOMONAS/NE ISSERIA GONORRHOEAE, PCR, URINE Routine 03/29/2025 11:55 AM EDT Encounter for adult wellness visit from Last 3 Months Results * ANCA Vasculitides (05/09/2025 2:28 PM EDT) Myeloperoxidase Antibody <1.0 [facility] Comment:Value Interpretation ----- <1.0 No Antibody Detected > or = 1.0 Antibody DetectedAutoantibodies to myeloperoxidase (MPO) are commonlyassociated with the following small-vesselvasculitides: microscopic polyangiitis,polyarteritis nodosa, Churg-Daniel syndrome,necrotizing and crescentic glomerulonephritis andoccasionally granulomatosis with polyangiitis(GPA, Matthew's). The perinuclear IFA pattern,(p-ANCA) is based largely on autoantibody tomyeloperoxidase which serves as the primary antigen.These autoantibodies are present in active disease. Proteinase-3 Antibody <1.0 [facility] Comment:Value Interpretation ----- <1.0 No Antibody Detected > or = 1.0 Antibody DetectedAutoantibodies to proteinase-3 (VT-3) are accepted ascharacteristic for granulomatosis with polyangiitis(GPA, Matthew's), and are detectable in 95% of thehistologically proven cases. The cytoplasmic IFApattern, (c-ANCA), is based largely on autoantibody toPR-3 which serves as the primary antigen.These autoantibodies are present in active disease.THIS TEST WAS PERFORMED AT:[id number] [place] [phone] DILLON MD 05/09/2025 2:28 PM EDT 05/09/2025 2:28 PM EDT us Generic External Data Provider LAB BLOOD ORDERAB LES Final Result Performing Organization Address [facility] de Phone Number [facility] [address] [place] [phone] * Sjogren's Antibodies (SS-A,SS-B) (05/09/2025 2:28 PM EDT) Sjogren's Antibody (SS-A) <1.0 NEG <1.0 NEG [facility] Sjogren's Antibody (SS-B) <1.0 NEG <1.0 NEG [facility] Comment:THIS TEST WAS PERFOR MED AT:[facility] [address] [phone] DILLON MD 05/09/2025 2:28 PM EDT 05/09/2025 2:28 PM EDT Generic External Data Provider LAB BLOOD ORDERAB LES Final Result Performing Organization Address [facility] de Phone Number [facility] [address] [place] [phone] * (ABNORMAL) Respiratory Allergy Profile Region I (05/09/2025 2:28 PM EDT) Mouse Urine Proteins (E72) IgE <0.10 kU/L [facility] Class 0 [facility] Cockroach (I6) IgE 0.70(A) kU/L [facility] Class 2 [facility] Dermatophagoides farinae (D2) IgE <0.10 kU/L [facility] Class 0 [facility] Cat Dander (E1) IgE <0.10 kU/L [facility] Class 0 [facility] Comment:THIS TEST WAS PERFOR MED AT:[facility] [address] [phone] DILLON MD Dog Dander (E5) IgE <0.10 kU/L [facility] Class 0 [facility] Comment:THIS TEST WAS PERFOR MED AT:[facility] [address] [phone] DILLON MD Nasim Grass (G6) IgE <0.10 kU/L [facility] Class 0 [facility] Cladosporium herbarum (M2) IgE <0.10 kU/L [facility] Class 0 [facility] Aspergillus Fumigatis (M3) IgE <0.10 kU/L [facility] Class 0 [facility] Alternaria alternata (M6) IgE <0.10 kU/L [facility] Class 0 [facility] Comment:THIS TEST WAS PERFOR MED AT:[facility] [address] [phone] DILLON MD [place] (t6) IgE <0.10 kU/L [facility] Class 0 [facility] [place] (T7) IgE <0.10 kU/L [facility] Class 0 [facility] Marl[place] Tree (T10) IgE <0.10 kU/L [facility] Class 0 [facility] Low[place] (T11) IgE <0.10 kU/L [facility] Class 0 [facility] [place] (T14) IgE <0.10 kU/L [facility] Class 0 [facility] White Shon (t15) IgE <0.10 kU/L [facility] Class 0 [facility] White Tecumse[place] (T70) IgE <0.10 kU/L [facility] Class 0 [facility] Common Ragweed (Short) (W1) IgE 0.11(A) kU/L [facility] Class 0/1 [facility] Mugwort (w6) IgE <0.10 kU/L [facility] Class 0 [facility] Dermatophagoides pteronyssinus (D1) IgE <0.10 kU/L [facility] Class 0 [facility] Bermuda Grass (g2) IgE <0.10 kU/L [facility] Class 0 [facility] Penicillium Notatum (M1) IgE <0.10 kU/L [facility] Class 0 [facility] Birch (T3) IgE <0.10 kU/L [facility] Class 0 [facility] Elm (t8) IgE <0.10 kU/L [facility] Class 0 [facility] Maple ([place]) (T1) IgE <0.10 kU/L [facility] Class 0 [facility] Rough Pigweed (W14) IgE <0.10 kU/L [facility] Class 0 [facility] Sheep Truman (W18) IgE <0.10 kU/L [facility] Class 0 [facility] Allergen Comment See Below [facility] Comment: Specific Level of AllergenIGE Class kU/L Specific IGE Antibody ----- --------- 0 <0.10 Absent/Undetectable 0/1 0.10-0.34 Very Low Level 1 0.35-0.69 Low Level 2 0.70-3.49 Moderate Level 3 3.50-17.4 High Level 4 17.5-49.9 Very High Level 5 50-100 Very High Level 6 >100 Very High LevelThe clinical relevance of allergen results of0.10-0.34 kU/L are undetermined and intended forspecialist use.Allergens denoted with a include results usingone or more analyte specific reagents. In thosecases, the test was developed and its analyticalperformance characteristics have been determined by[facility]. It has not been cleared or approvedby the U.S. Food and Drug Administration. This assayhas been validated pursuant to the CLIA regulationsand is used for clinical purposes.THIS TEST WAS PERFORMED AT:[facility] [address] [phone] DILLON MD 05/09/2025 2:28 PM EDT 05/09/2025 2:28 PM EDT us Generic External Data Provider LAB BLOOD ORDERAB LES Final Result [facility] [address] [place] [phone] * (ABNORMAL) CBC auto differential (05/09/2025 2:28 PM EDT) Only the most recent of2 resultswithin the time period is included. White Blood Count 8.2 4.8 - 10.8 X10*3/uL [facility] Red Blood Count 4.54(L) 4.60 - 5.80 X10*6/uL [facility] Hemoglobin 14.0 14.0 - 18.0 g/dl [facility] Hematocrit 40.6(L) 42.0 - 52.0 % [facility] Mean Corpuscular Volume 89.4 80.0 - 98.0 fL [facility] Mean Corpuscular Hemoglobin 30.8 27.0 - 33.0 pg [facility] Mean Corpuscular HGB Conc 34.5 31.0 - 36.0 g/dl [facility] Red Cell Distribution Width 14.0 11.0 - 16.0 % [facility] Platelet Count 159(L) 160 - 400 X10*3/uL [facility] Mean Platelet Volume 11.3 9.4 - 12.4 fL [facility] Neutrophils Percent Auto 63.3 45 - 73 % [facility] Imm Gran Pct Auto 0.2 0.0 - 0.4 % [facility] Lymphocytes Percent Auto 25.0 20 - 40 % [facility] Monocytes Percent Auto 9.5 2 - 11 % [facility] Eosinophils Percent Auto 1.5 0 - 4 % [facility] Basophils Percent Auto 0.5 0 - 2 % [facility] NRBC Pct Auto 0.0 0.0 - 0.2 /100WBC [facility] Neutrophils Absolute Auto 5.2 2.0 - 8.3 x10*3/uL [facility] Imm Gran Abs Auto 0.02 0.00 - 0.03 X10*3/uL [facility] Lymphocytes Absolute Auto 2.1 1.2 - 4.9 X10*3/uL [facility] Monocytes Absolute Auto 0.8 0.1 - 1.2 X10*3/uL [facility] Eosinophils Absolute Auto 0.1 0.0 - 0.4 X10*3/uL [facility] Basophils Absolute Auto 0.0 0.0 - 0.2 X10*3/uL [facility] NRBC Abs Auto 0.000 0.0 - 0.012 X10*3/uL [facility] 05/09/2025 2:28 PM EDT 05/09/2025 2:28 PM EDT us Generic External Data Provider LAB BLOOD ORDERAB LES Final Result [facility] [address] [place] [phone] * Hypersensitivity Pneumonitis Screen (05/09/2025 2:28 PM EDT) Aspergillus fumigatus Ab NEGATIVE NEGATIVE [facility] Micropolyspora Faeni NEGATIVE NEGATIVE [facility] [place]ter Serum Abs NEGATIVE NEGATIVE [facility] Thermoactinomyces candidus NEGATIVE NEGATIVE [facility] Thermoactinomyces vulgaris Ab NEGATIVE NEGATIVE [facility] Saccharomonospora viridis Ab NEGATIVE NEGATIVE [facility] Comment:This test was develo ped and its analytical performancecharacteristics have been determined by [facility].It has not been cleared or approved by the FDA. This assayhas been validated pursuant to the CLIA regulations and isused for clinical purposes.THIS TEST WAS PERFORMED AT:[id number] [place] [address]QXVMUSTEF IBANEZ MD,PHD,CHINMAY 05/09/2025 2:28 PM EDT 05/09/2025 2:28 PM EDT us Generic External Data Provider LAB BLOOD ORDERAB LES Final Result Performing Organization Address [facility] Co de Phone Number [facility] [address] [place] [phone] * HIV-1/2 Antigen and Antibodies, Fourth Generation, with Reflexes (05/09/2025 2:28 PM EDT) Only the most recent of2 resultswithin the time period is included. HIV AB/AG Nonreactive Nonreactive [facility] Comment:HIV-1 p24 Ag and/or HIV-1/HIV-2 Ab not detected.A test result that is nonreactive does not exclude thepossibility of exposure to or infection with HIV-1 and/orHIV-2. Nonreactive results in this assay for individualswith prior exposure to HIV-1 and/or HIV-2 may be due toantigen and antibody levels that are below the limit ofdetection of this assay.The [employer] HIV Ag/Ab Combo assay result andsupplemental assay results should be interpreted inconjunction with the patient's clinical presentation,history and other laboratory results. If the results areinconsistent with clinical evidence, additional testing issuggested to confirm the result. 05/09/2025 2:28 PM EDT 05/09/2025 2:28 PM EDT us Generic External Data Provider LAB BLOOD ORDERAB LES Final Result Performing Organization Address [facility] Co de Phone Number [facility] [address] [place] [phone] * Sed Rate by Modified Fabio (05/09/2025 2:28 PM EDT) Erythrocyte Sedimentation Rate 14 0 - 15 MM/HR [facility] Comment:Patients with polycy themia and many hemoglobin abnormalitiesmay have depressed sed rates whereas patients with anemiamay have elevated sed rates. 05/09/2025 2:28 PM EDT 05/09/2025 2:28 PM EDT us Generic External Data Provider LAB BLOOD ORDERAB LES Final Result Performing Organization Address [facility]/ZIP Co de Phone Number [facility] [address] [place] [phone] * Angiotensin -1- Converting Enzyme (05/09/2025 2:28 PM EDT) Angiotensin Converting Enzyme 49 9 - 67 U/L [facility] Comment:THIS TEST WAS PERFOR MED AT:[facility] [place] [address]FJSCBTMNIKOLAS GÓMEZ MD,PHD 05/09/2025 2:28 PM EDT 05/09/2025 2:28 PM EDT Generic External Data Provider LAB BLOOD ORDERAB LES Final Result Performing Organization Address [facility] de Phone Number [facility] [address] [place] [phone] * (ABNORMAL) Immunoglobulins, Quantitative, IgA, IgG, IgM (05/09/2025 2:28 PM EDT) IMMUNOGLOBULIN G 2259(A) 600 - 1640 mg/dL [facility] IMMUNOGLOBULIN A 474(A) 47 - 310 mg/dL [facility] Immunoglobulin M 97 50 - 300 mg/dL [facility] Comment:THIS TEST WAS PERFOR MED AT:[facility] [address] [phone] DILLON MD 05/09/2025 2:28 PM EDT 05/09/2025 2:28 PM EDT us Generic External Data Provider LAB BLOOD ORDERAB LES Final Result Performing Organization Address [facility] Co de Phone Number [facility] [address] [place] [phone] * (ABNORMAL) ELIZABETH Screen,IFA, with Reflex to Titer and Pattern (05/09/2025 2:28 PM EDT) Anti Nuclear Antibody Screen POSITIV E(A) NEGATIVE [facility] Comment:ELIZABETH IFA is a first l ine screen for detecting thepresence of up to approximately 150 autoantibodies invarious autoimmune diseases. A positive ELIZABETH IFA resultis suggestive of autoimmune disease and reflexes totiter and pattern. Further laboratory testing may beconsidered if clinically indicated.For additional information, please refer tohttp://education.[employer]/faq/TAV184(This link is being provided for informational/educational purposes only.) ELIZABETH Titer 1:80(A) titer [facility] Comment:A low level ELIZABETH tite r may be present in pre-clinicalautoimmune diseases and normal individuals. Reference Range <1:40 Negative 1:40-1:80 Low Antibody Level >1:80 Elevated Antibody Level ELIZABETH Pattern Nuclear , Homogen eous(A) [facility] Comment:Homogeneous pattern is associated with systemic lupuserythematosus (SLE), drug-induced lupus and juvenileidiopathic arthritis.AC-1: HomogeneousInternational Consensus on LEIZABETH Patterns(https://doi.org/10.1515/kzyf-3002-2806)THIS TEST WAS PERFORMED AT:[facility] [place] [phone] DILLON MD ELIZABETH Titer 2 TNP [facility] ELIZABETH Pattern 2 [facility] ELIZABETH TITER 3 [facility] ELIZABETH PATTERN 3 VAP [facility] 05/09/2025 2:28 PM EDT 05/09/2025 2:28 PM EDT us Generic External Data Provider LAB BLOOD ORDERAB LES Final Result [facility] [address] [place] [phone] * Immunoglobulin E (05/09/2025 2:28 PM EDT) Immunoglobulin E 6 <GP=713 kU/L [facility] 05/09/2025 2:28 PM EDT 05/09/2025 2:28 PM EDT us Generic External Data Provider LAB BLOOD ORDERAB LES Final Result Performing Organization Address [facility]/ZIP Co de Phone Number [facility] [address] [place] [phone] * (ABNORMAL) Basic Metabolic Panel (05/09/2025 2:28 PM EDT) Sodium 141 135 - 145 mmol/L [facility] Potassium 3.9 3.3 - 5.1 mmol/L [facility] Chloride 106 96 - 108 mmol/L [facility] Carbon Dioxide 28 22 - 29 mmol/L [facility] Anion Gap 11(L) 12 - 20 [facility] Urea Nitrogen (BUN) 18(H) 9 - 16 mg/dL [facility] Creatinine, Serum 1.04 0.5 - 1.4 mg/dL [facility] Estimated Glomerular Filt Rate >60 [facility] Comment:Chronic Kidney Disea se: Estimated GFR < 60 mL/min/[id number] Kidney Disease: Estimated GFR < 15 mL/min/1.73m2 Glucose 108 60 - 115 mg/dL [facility] Calcium 8.9 8.4 - 10.2 mg/dL [facility] 05/09/2025 2:28 PM EDT 05/09/2025 2:28 PM EDT us Generic External Data Provider LAB BLOOD ORDERAB LES Final Result Performing Organization Address [facility]/ZIP Co de Phone Number [facility] [address] [place] [phone] * Gram Stain Result (05/09/2025 1:22 PM EDT) 05/09/2025 1:22 PM EDT 05/09/2025 2:27 PM EDT Comment:Sputum Narrative [facility] - 05/13/2025 8:34 AM EDT Gram stain results: No polys 3+ Gram-negative rods Sputum Culture BAP Sputum Culture 3+ Mixed respiratory deyanira. Haemophilus parainfluenzae B-Lac Susc (reported) Beta-lactamase not produced; suggests PEN/AMP susceptibility Quant Org ID 4+ Haemophilus influenzae B-Lac Susc (reported) Beta-lactamase was produced; suggests PEN/AMP resistance Quant Org ID 4+ Specimen Source: Sputum Generic External Data Provider HISTORICAL/NON OR DERABLE LABS Final Result Performing Organization Address [facility]/ZIP Co de Phone Number [facility] [address] [place] [phone] * Acid-Fast Smear (05/09/2025 1:22 PM EDT) 05/09/2025 1:22 PM EDT 05/09/2025 2:27 PM EDT Comment:Sputum Narrative [facility] - 05/11/2025 11:19 AM EDT Acid-Fast Smear Acid-Fast Smear Acid-Fast Smear No acid-fast bacilli seen. Test performed by: [facility], [employer] [address] [place] [address] floor, [place] [address] Director: Giancarlo Dillon MD CLIA: [id number] Acid-Fast Culture null Acid-Fast Culture null Acid-Fast Culture null Acid-Fast Culture null Acid-Fast Culture null Acid-Fast Culture null Acid-Fast Culture null Acid-Fast Culture null Acid-Fast Culture null Acid-Fast Culture null Acid-Fast Culture null Specimen Source: Sputum Generic External Data Provider LAB MICROBIOLOGY - GENERAL ORDERABLES Final Result Performing Organization Address [facility] Co de Phone Number [facility] [address] [place] [phone] * T-SPOT??.TB (04/15/2025 3:22 PM EDT) [facility] T Spot TB Negative Negative [facility] Comment:A negative test resu [...] as aquantitative test. TS PANEL A 1 [facility] TS PANEL B 1 [facility] Negative Control Passed [facility] Positive Control Passed [facility] Comment:For additional infor antonio, please refer tohttp://education.Jumo/faq/DDC267(This link is being provided for informational/educational purposes only.)THIS TEST WAS PERFORMED AT:[id number] [place] [address]WUNYJUTNIKOLAS GÓMEZ MD,PHD 04/15/2025 3:22 PM EDT 04/15/2025 3:57 PM EDT us Sharon Garza INSTITUTIONAL NUTRITION CONSULTANT LAB BLOOD ORDERABLES Final Res ult [facility] [address], [place] [phone] * (ABNORMAL) Liver Fibrosis (HCV), FibroTest-ActiTest Panel (04/15/2025 3:22 PM EDT) Liver Fibrosis Score 0.88 [facility] Liver Fibrosis Stage F4 [facility] Liver Fibrosis Interpretation SEE NOTE [facility] Comment:severe fibrosisFibro Test Score [...] (severe fibrosis) Nec Inflam Act Score 0.72 [facility] Nec Inflam Act Grade A3 [facility] Nec Inflam Act Interpretation SEE NOTE [facility] Comment:severe activityActiT est Score (a) Metavir Score a>=0 and a<=0.17 : A0 (no activity)a>0.17 and a<=0.29 : A0-A1 (no activity)a>0.29 and a<=0.36 : A1 (minimal activity)a>0.36 and a<=0.52 : A1-A2 (minimal activity)a>0.52 and a<=0.60 : A2 (significant activity)a>0.60 and a<=0.62 : A2-A3 (significant activity)a>0.62 and a<=1.00 : A3 (severe activity) CML-Hbcsn-3-Macroglo bulin 464(A) 106 - 279 mg/dL [facility] FIB-Haptoglobin 40(A) 43 - 212 mg/dL [facility] FIB-Apolipoprotein A1 127 94 - 176 mg/dL [facility] FIB-Total Bilirubin 0.6 0.2 - 1.2 mg/dL [facility] FIB-GGT 140(A) 3 - 95 U/L [facility] FIB-ALT 89(A) 9 - 46 U/L [facility] Reference ID [id number] [facility] Footnote SEE NOTE [facility] Comment: The reliability of [...] and C.The performance characteristics have been determined byContext [facility]Par[facility]. Ithas not been cleared or approved by the U.S. Food and DrugAdministration. Performance characteristics refer to theanalytical performance of the test.[employer], the associated logo, [employer] and all associated [employer] pereira are theregistered trademarks of [employer]. All third partymarks - (R) and (TM) - are the property of their respectiveowners. (C) [id number] [employer]. Allrights reserved.THIS TEST WAS PERFORMED AT:[facility] [id number] [place] [address]RTFKGSTEF IBANEZ MD,PHD,CHINMAY 04/15/2025 3:22 PM EDT 04/15/2025 4:03 PM EDT us Sharon ROUSSEAU LAB BLOOD ORDERABLES Final Res ult [facility] [address] [place] [phone] * Hepatitis A Antibody, Total (04/15/2025 3:22 PM EDT) Hepatitis A Antibody IgG REACTIVE Nonreactive [facility] Comment:The presence of IgG anti-HAV implies past HAV infection(recent or distant) or vaccination against HAV. 04/15/2025 3:22 PM EDT 04/15/2025 4:03 PM EDT [facility] LAB BLOOD ORDERABLES Final Res ult Performing Organization Address City/[facility]/ZIP Co de Phone Number [facility] [address] [place] [phone] * Hepatitis C Viral RNA, Genotype, LiPA (04/15/2025 3:22 PM EDT) [facility] Hepatitis C Genotype 1a Not Detected [facility] Comment:The methods used in this test are RT-PCR and DNASequencing of the 5' UTR and core region of the HCVgenome.For additional information, please refer tohttp://education.[employer]/faq/HCVGenotyping(This link is being provided for informational/educational purposes only.)This test was developed and its analytical performancecharacteristics have been determined by [email or web address]. It has not been cleared or approved bythe FDA. The assay has been validated pursuant to theIA regulations and is used for clinical purposes.THIS TEST WAS PERFORMED AT:[facility] [place] [address]GPBHGRPNIKOLAS GÓMEZ MD,PHD 04/15/2025 3:22 PM EDT 04/15/2025 4:03 PM EDT [facility] LAB BLOOD ORDERABLES Final Res ult Performing Organization Address City/[facility]/ZIP Co de Phone Number [facility] [address] [place] [phone] * (ABNORMAL) Prothrombin Time-INR (04/15/2025 3:22 PM EDT) [facility] Prothrombin Time 12.7(H) 10.9 - 12.4 SEC [facility] INTERNATIONAL NORM RATIO 1.1 0.9 - 1.1 [facility] Comment:INTERNATIONAL NORMAL IZED RATIO [...] PM EDT 04/15/2025 3:57 PM EDT Sharon ROUSSEAU LAB BLOOD ORDERABLES Final Res ult Performing Organization Address City/State/[facility] Co de Phone Number [facility] [address] [place] [phone] * XR Chest 2 Views (04/13/2025 10:40 AM EDT) Anatomical Region Laterality Modality Chest Radiographic Jo ging 04/13/2025 10:4 0 AM EDT Narrative 04/13/2025 11:05 AM EDT [address] [address] XRay Report Signed Patient: Blake Norris MR#: [id number] 48 : 1980 Acct:[id number] Age/Sex: 44 / M ADM Date: 04/13/25 Loc: .HHCL Attending Dr: Sharon ROUSSEAU Ordering Physician: Sharon Garza Date of Service: 04/13/25 Procedure(s): XR chest 2V Accession Number(s): [id number] cc: Sharon Garza Reason for Exam: coughing [...] 04/13/25 1102 DD/ 1040 TD/TT: 04/13/25 1050 Milk Inspector: Procedure Note Donotuseinterpreter, Image - 04/13/2025 [place] [address] XRay Report Signed Patient: Lucia Norris#: [id number] 48 : 1980Acct:[id number] Age/Sex: 44 / MADM Date: 04/13/25 Loc: HO.HHCL Attending Dr: Sharon ROUSSEAU Ordering Physician: Sharon Garza Date of Service: 04/13/25 Procedure(s): XR chest 2V Accession Number(s): [id number] cc: Sharon Garza Reason for Exam: coughing [...] 04/13/25 1102 DD/ 1040 TD/TT: 04/13/25 1050 Milk Inspector: [facility] IMG XR PROCEDURES Final Result * Chlamydia/N. Gonorrhoeae, PCR, Urine (03/29/2025 11:55 AM EDT) CT PCR, Urine NOT DETECTED Not Detect. [facility] Comment:A not detected test [...] NG PCR, Urine NOT DETECTED Not Detect. [facility] Comment:A not detected test [...] 11:55 AM EDT 03/29/2025 1:19 PM EDT Sharon Garza [facility] LAB URINE ORDERABLES Final Res ult [facility] [address] [place] [phone] * (ABNORMAL) Vitamin D, 25-Hydroxy, Total, Immunoassay (03/29/2025 11:55 AM EDT) Vitamin D 25-OH Total 26.9(L) >30 ng/mL [facility] Comment: Health Based Reference Values*< 20 ng/mL Qwpavlbhd83-61 ng/mL Insufficient> 30 ng/mL Sufficient*Erin PULIDO. N [...] 11:55 AM EDT 03/29/2025 1:04 PM EDT [facility] Final Res ult Performing Organization Address [facility] Co de Phone Number [facility] [address] [place] [phone] * (ABNORMAL) Hepatitis C Viral RNA, Quantitative, Real-Time PCR (03/29/2025 11:55 AM EDT) [facility] Hepatitis C Viral Load 6606477(A ) NOT DETECTED IU/mL [facility] HCV Log PCR 6.54(A) NOT DETECTED Log IU/mL [facility] Comment:For additional infor mation, please refer tohttp://education.[employer]/faq/GTX22x2(This link is being provided for informational/educational purposes only.)THIS TEST WAS PERFORMED AT:[facility] [place] [id number] DILLON MD 03/29/2025 11:5 5 AM EDT 03/30/2025 10:37 AM EDT [facility] LAB BLOOD ORDERABLES Final Res ult Performing Organization Address [facility] Co de Phone Number [facility] [address] [place] [phone] * (ABNORMAL) Hepatitis C Antibody with Reflex to HCV, RNA, Quantitative, Real- Time PCR (03/29/2025 11:55 AM EDT) [facility] Hepatitis C Antibody Reactive( A) Nonreactive [facility] Comment:Presumptive evidence of antibodies to HCV. Blood Venous blood specimen / Unknown 03/29/2025 11:55 AM EDT 03/29/2025 1:04 PM EDT [facility] BLOOD ORDERABLES Final Res ult Performing Organization Address [facility] Co de Phone Number [facility] [address] [place] [phone] * Hepatitis B surface antigen, EIA (03/29/2025 11:55 AM EDT) [facility] Hepatitis B Surface Ag Negative Negative [facility] Blood Venous blood specimen / Unknown 03/29/2025 11:55 AM EDT 03/29/2025 1:04 PM EDT [facility] BLOOD ORDERABLES Final Res ult Performing Organization Address [facility] de Phone Number [facility] [address] [place] [phone] * Hepatitis B Core Antibody, Total (03/29/2025 11:55 AM EDT) [facility] Hepatitis B Core Antibody Nonreactive Nonreactive [facility] Blood Venous blood specimen / Unknown 03/29/2025 11:55 AM EDT 03/29/2025 1:04 PM EDT [facility] BLOOD ORDERABLES Final Res ult Performing Organization Address [facility] de Phone Number [facility] [address] [place] [phone] * Hepatitis B Surface Antibody, Qualitative (03/29/2025 11:55 AM EDT) Pathologist [facility] ~Hepatitis B Surface Antibody REACTIVE Nonreactive [facility] Comment:REACTIVE: > 11.99 mI U/mL Blood Venous blood specimen / Unknown 03/29/2025 11:55 AM EDT 03/29/2025 1:04 PM EDT [facility] LAB BLOOD ORDERABLES Final Res ult Performing Organization Address [facility] Co de Phone Number [facility] [address] [place] [phone] * TSH (03/29/2025 11:55 AM EDT) Thyroid Stimulating Hormone 3.62 0.32 - 4.0 uIU/mL [facility] Comment:Note: A sustained TS H level above 2.5 uIU/mL may warrant further investigation. TSH 3rd Generation ([facility]) Blood Venous blood specimen / Unknown 03/29/2025 11:55 AM EDT 03/29/2025 1:04 PM EDT [facility] LAB BLOOD ORDERABLES Final Res ult Performing Organization Address [facility] Co de Phone Number [facility] [address] [place] [phone] * PSA,Total (03/29/2025 11:55 AM EDT) Prostate Specific Antigen 0.68 <0.05 - 4.0 ng/mL [facility] Comment:PSA methodology: Abb chuyita Alijustinty i ChemiluminescentMicroparticle Immunoassay (CMIA) Blood Venous blood specimen / Unknown 03/29/2025 11:55 AM EDT 03/29/2025 1:04 PM EDT [facility] LAB BLOOD ORDERABLES Final Res ult Performing Organization Address City/[facility]/ZIP Co de Phone Number [facility] [address] [place] [phone] * Hemoglobin A1c (03/29/2025 11:55 AM EDT) Hemoglobin A1c 5.0 <6.0 % [facility] Comment:Hemoglobin A1C Refer ence Range Adults: 4.8 - 6.0 % Non diabetic: < 6.0 % Goal: < 7.0 %Additional Action Suggested: > 8.0 %Note: Hemoglobin A1c results are invalid for patients with abnormal amounts of HbF. Blood transfusions may impact the HbA1c concentration in the patient sample. Estimated Average Glucose 97 mg/dL [facility] Comment:eAG = Estimated ave rage glucose which is %A1C expressed asaverage glucose, using the formula of the X7Q-EsqvrvpUybwhdr Glucose study (ADAG), Diabetes Care, Vol.31,#8,Feb. 2007 Blood Venous blood specimen / Unknown 03/29/2025 11:55 AM EDT 03/29/2025 1:04 PM EDT us Sharon Garza [facility] LAB BLOOD ORDERABLES Final Res ult [facility] [address] [place] [phone] * (ABNORMAL) Lipid Panel, Standard (03/29/2025 11:55 AM EDT) Triglycerides 175(H) <150 mg/dL [facility] Comment:Desirable Triglyceri de: less than 150 mg/dLBorderline High Triglyceride 150-199 mg/dLHigh Triglyceride: 200-499 mg/dLVery High Triglyceride: greater than or equal to 5OO mg/dL Cholesterol 127 <200 mg/dL [facility] Comment:Desirable Cholestero l: less than 200 mg/dLBorderline High Cholesterol: 200-239 mg/dLHigh Cholesterol: greater than 239 mg/dL LDL Cholesterol Calculated 56 <100 mg/dL [facility] Comment:Desirable LDL: less than 100 mg/dLNear Optimal/Above Optimal LDL: 110- 129 mg/dLBorderline High LDL: 130-159 mg/dLHigh LDL: 160-189 mg/dLVery High LDL: greater than or equal to 190 mg/dL HDL Cholesterol 36(L) >40 mg/dL [facility] Comment:Desirable HDL: great er than 40 mg/dL Note: This HDL assay may give artificially low results in patients with liver disease. Blood Venous blood specimen / Unknown 03/29/2025 11:55 AM EDT 03/29/2025 1:04 PM EDT us Sharontoribio Luaphil [facility] LAB BLOOD ORDERABLES Final Res ult [facility] [address] [place] [phone] * (ABNORMAL) Comprehensive Metabolic Panel (03/29/2025 11:55 AM EDT) Sodium 140 135 - 145 mmol/L [facility] Potassium 4.5 3.3 - 5.1 mmol/L [facility] Chloride 102 96 - 108 mmol/L [facility] Carbon Dioxide 31(H) 22 - 29 mmol/L [facility] Anion Gap 12 12 - 20 [facility] Urea Nitrogen (BUN) 15 9 - 16 mg/dL [facility] Creatinine, Serum 0.88 0.5 - 1.4 mg/dL [facility] Estimated Glomerular Filt Rate >60 [facility] Comment:Chronic Kidney Disea se: Estimated GFR < 60 mL/min/1.93t3Pxmrlb Kidney Disease: Estimated GFR < 15 mL/min/1.73m2 Glucose 80 60 - 115 mg/dL [facility] Calcium 9.1 8.4 - 10.2 mg/dL [facility] Bilirubin, Total 1.0 0.0 - 1.0 mg/dL [facility] Aspartate Amino Transferase 174(H) 5 - 37 U/L [facility] Alanine Aminotransferase 152(H) 0 - 40 U/L [facility] Total Protein 8.2(H) 6.5 - 8.0 g/dL [facility] Albumin Level 3.9 3.5 - 5.0 g/dL [facility] Alkaline Phosphatase 158(H) 39 - 117 U/L [facility] Blood Venous blood specimen / Unknown 03/29/2025 11:55 AM EDT 03/29/2025 1:04 PM EDT Sharon ROUSSEAU LAB BLOOD ORDERABLES Final Res ult [facility] [address] [place] [phone] from Last 3 Months Insurance [facility] Care Teams Vp Revenue Cycle Relationship Specialty Start Date End Date Sharon Garza FNP [address] [place] [phone] PCP - General Family Medicine 03/25/25
== END 2025-06-10 08:59 | disposition home or self-care (01) ==
LOC: HO.CT 08:58
PROVIDERS: PCP Nurse Practitioner Family; Visit Provider Hospitalist
DX: J98.4 Other disorders of lung (principal); J47.9 Bronchiectasis, uncomplicated
CPT/HCPCS: 71250

== ENCOUNTER → 2025-06-10 09:03 | Outpatient (BNV) | payer OTHER, SELFPAY | PROVIDERS: PCP Nurse Practitioner Family; Visit Provider Radiology Diagnostic Radiology | DX: J47.9 Bronchiectasis, uncomplicated (principal) | CPT/HCPCS: 71250 ==

== ENCOUNTER 2025-06-27 07:51 | Outpatient (REF) | payer OTHER, SELFPAY ==
--- NOTE | ~2025-06-27 | US_ITS ---
EXAMINATION: US ABDOMEN COMPLETE WITH LIVER ELASTOGRAPHY HISTORY: Hep C virus infection without hepatic coma TECHNIQUE: Real-time grayscale ultrasound imaging of the abdomen was performed and images were reviewed. COMPARISON: Comparison is made with the prior examination dated 03/29/2024. FINDINGS: Liver: The right lobe of the liver measures 19.2 cm in size. The left lobe of the liver measures 14.4 cm in size. The liver demonstrates increased echotexture, consistent with steatosis. There is focal fatty sparing adjacent to the gallbladder. No focal mass or intrahepatic biliary ductal dilatation is identified. There is normal hepatopedal flow in the portal vein. Ultrasound elastography of the liver was performed with 10 separate measurements of the liver parenchyma with the patient in the supine position. Measurements were obtained approximately 2 cm below Dylon's capsule and perpendicular to the capsule. The median shear wave velocity is 2.33 m/s. The interquartile range/median (IQR/median) is 0.12. Gallbladder and biliary tree: The gallbladder is unremarkable, without evidence of calculi, wall thickening, or pericholecystic fluid. There is no sonographic Ibarra sign. The common bile duct is normal in caliber measuring 5 mm. Kidneys: The right kidney measures 11.5 cm in length. The left kidney measures 10.7 cm in length. The kidneys are unremarkable, without evidence of masses, hydronephrosis, or calculi. Pancreas: The pancreatic head and neck are unremarkable. The remainder the pancreas is obscured by bowel gas. Spleen: The spleen is enlarged, measuring 16.6 cm in length. Abdominal aorta and inferior vena cava: The visualized portions of the abdominal aorta and inferior vena cava are normal in caliber. There is no free fluid in the abdomen. US/US abdomen comp w elastography IMPRESSION: Hepatosplenomegaly and hepatic steatosis. The median shear wave velocity in the liver is 2.33 m/s, corresponding to a median liver stiffness of 16.45 kPa. The IQR/median value is 0.12. This is indicative of a quality data set. Findings are indicative of a high elastography value indicating advanced chronic liver disease. REFERENCE: Society of Radiologists in Ultrasound Liver Stiffness Thresholds (2020): LIVER STIFFNESS THRESHOLDS: *Shear wave velocity less than 1.3 m/s (Liver Stiffness equal or less than 5 kPa): High probability of being normal. *Shear wave velocity less than 1.7 m/s (Liver Stiffness less than 9 kPa): In the absence of other known clinical signs, rules out compensated advanced chronic liver disease. *Shear wave velocity between 1.7-2.1 m/s (Liver Stiffness 9-13 kPa): Suggestive of compensated advanced chronic liver disease but need further test for confirmation. *Shear wave velocity between 2.1-2.4 m/s (Liver Stiffness 13-17 kPa): Rules in compensated advanced chronic liver disease. *Shear wave velocity greater than 2.4 m/s (Liver Stiffness over 17 kPa): Suggestive of clinically significant portal hypertension. QUALITY OF DATA SET: *IQR/Median value equal or less than 0.15 implies a quality data set. *IQR/Median value over 0.15 implies a poor quality data set. SIGNIFICANT CHANGE FROM PRIOR EXAM: Significant change if liver stiffness measurement is 10% or greater from prior exam. OTHER CONSIDERATIONS: The stage of liver fibrosis may be overestimated in the setting of acute hepatitis, liver inflammation, elevated liver function tests, hepatic vascular congestion, obstructive cholestasis, non-fasting state, and infiltrative diseases such as amyloidosis and lymphoma. In some patients with NAFLD, the liver stiffness thresholds for compensated advanced chronic liver disease may be lower. In causes other than viral hepatitis and NAFLD, liver stiffness thresholds are not well established. Electronically signed by: Joe Lee MD 06/27/2025 09:00 AM [facility]
--- OUTSIDE RECORDS SUMMARY | 2025-06-27 07:58 | XMS_ITS | Clinical Summary ---
Author Organization [employer] Address [address] [facility] 7[address] [place] [address] Care Team Providers Care Hand Silvering Supervisor Name Role Phone Sharon Garza [facility] Primary Care Provider [phone] Allergies No known active allergies Medications fluticasone [...] Encounters Date Type Department Care Team Description 06/10/2025 Orders Only [facility] External Provider, [facility] 05/09/2025 Orders Only GENERIC EXTERNAL DATA DEPARTMENT Provider, Generic External Data 04/22/2025 Orders Only [facility] MEDIC[facility] [address] [place], [place] [phone] Pat Garcia, DEISI Hepatitis C virus infection without hepatic coma, unspecified chronicity (Primary Dx) 04/14/2025 Telephone [facility]IC[facility] [address] [place], [place] [phone] Janae Samaniego RN 04/14/2025 Telephone [facility] [address] [place] [address] Charmaine Carrasquillo, RN Hep C Management 04/14/[address] [address] Janae Samaniego RN 04/13/2025 9:30 AM EDT Office Visit [address] [phone] Sharon Garza FNP Dyspnea, unspecified type (Primary Dx); Cough with expectoration; Cough with hemoptysis; Hepatitis C virus infection without hepatic coma, unspecified chronicity 04/13/[address] [address] Janae Samaniego RN 04/13/2025 Travel 04/12/2025 Telephone [facility] [address] [place] [address] Sharon Garza FNP Chart Prep 03/29/2025 10:30 AM EDT Office Visit [address] [address] Sharon Garza FNP Encounter for adult wellness visit (Primary Dx); Encounter for immunization; Dyspnea, unspecified type; Overweight; Dietary counseling; Exercise counseling 03/29/2025 Orders Only [address] [address] Sharon Garza FNP 03/29/2025 Travel from Last 3 Months Immunizations Immunization Administration [...] the past 12 months, has t he [employer], gas, oil or water Heidi Shaulis threatened to shut off services in your [...] Procedure Name Priority Date/Time Associated Diagnosis Comments CT CHEST WO CONTRAST Routine 06/10/2025 9:10 AM EST ELIZABETH SCREEN, IFA, W/REFL TITER AND PATTERN Routine 05/09/2025 2:28 PM EDT HYPERSENSITIVITY PNUEMONITIS PROFILE Routine 05/09/2025 2:28 PM EDT RESPIRATORY ALLERGY PROFILE REGION I Routine 05/09/2025 2:28 PM EDT IMMUNOGLOBULIN E Routine 05/09/2025 2:28 PM EDT [id number] ENZYME Routine 05/09/2025 2:28 PM EDT HIV [...] visit from Last 3 Months Results * CT Chest w/o Contrast (06/10/2025 9:10 AM EST) Anatomical Region Laterality Modality Body, Chest Computed Tomogra phy 06/10/2025 9:10 AM EST Narrative 06/10/2025 10:37 AM EST [address] [address] [address] Scan Report Signed Patient: Blake Norris MR#: [id number] 48 : 1980 Acct:[id number] Age/Sex: 44 / M ADM Date: 06/10/25 Loc: HO.CT Attending Dr: Zohaib Bowers MD Ordering Physician: Zohaib Bowers MD Date of Service: 06/10/25 Procedure(s): CT chest wo IV con Accession Number(s): [id number] cc: Sharon GarzaP; Zohaib Bowers MD Report Number: [id number]: Total DLP = 152.00 mGy-cm Reason for Exam: J47.9 - Bronchiectasis, uncomplicated EXAMINATION: CT CHEST WITHOUT CONTRAST CLINICAL INFORMATION: J 47.9. Bronchiectasis, uncomplicated. COMPARISON: Correlated to CT abdomen pelvis dated March 29, 2024. TECHNIQUE: Multidetector volumetric CT imaging of the chest was done. Axial MIP volume rendering provided. Sagittal and coronal reformatted images were obtained. This CT examination was performed using dose optimization techniques as appropriate, variously including the following: *Automated exposure control *Adjustment of mA and/or kV according to patient size (this includes techniques or standardized protocols for targeted exams where dose is matched to indication/reason for exam; i.e. extremities or head) *Use of iterative reconstruction technique DLP: 152 mGy-cm FINDINGS: BUYING INTERN: No hyperinflation. Heart silhouette size is normal. S-shaped curvature of the thoracolumbar spine. Abnormal lungs. LUNGS: There are numerous, different sizes, circular shaped, irregular thick wall, predominantly gas-filled abnormalities extending from the pulmonary hilum to the peripheral upper and lower lung lobes. Paraseptal emphysematous changes in the upper and to a lesser extent lower lung lobes. No hyperinflation. MEDIASTINUM: No mediastinal lymphadenopathy mild prominent mediastinal lymph nodes. No aneurysm, thoracic aorta. Calcified plaque in the inferior aortic arch. Heart is not enlarged. No pericardial effusion. No pneumomediastinum. No hemopericardium. Thyroid gland is not enlarged. CORONARY ARTERY CALCIFICATION: None visualized on this study. PLEURA: No pleural effusion. No pneumothorax. No calcified pleural plaques. No hemothorax. AXILLA: No lymphadenopathy. UPPER ABDOMEN: No gross abnormality. OSSEOUS STRUCTURES: Mild lower thoracic spondylosis. No acute fracture or listhesis. No lytic or blastic lesions. No acute rib fracture. Vacuum phenomenon, right adrenal humeral joint. CT/CT chest wo IV con IMPRESSION: Extensive bilateral cystic bronchiectasis with questionable superimposed inflammatory versus infectious process. Consider idiopathic, allergic/autoimmune versus congenital etiology. Fleischner guidelines were followed. Electronically signed by: Tim Sidhu MD 06/10/2025 10:35 AM EST Dictated By: Tim Valiente MD Signed By: <Electronically signed by Tim Vela MD in OV> 06/10/25 1035 DD/ 0910 TD/TT: 06/10/25 1019 Electrical Products Engineer: Procedure Note Donotuseinterpreter, Image - 06/10/[address] [address] [address] Scan Report Signed Patient: Lucia Norris#: [id number] 48 : 1980Acct:[id number] Age/Sex: 44 / MADM Date: 06/10/25 Loc: HO.CT Attending Dr: Zohaib Bowers MD Ordering Physician: Zohaib Bowers MD Date of Service: 06/10/25 Procedure(s): CT chest wo IV con Accession Number(s): [id number] cc: Sharon Garza [facility]; Zohaib Bowers MD Report Number: [id number]: Total DLP = 152.00 mGy-cm Reason for Exam: J47.9 - Bronchiectasis, uncomplicated EXAMINATION: CT CHEST WITHOUT CONTRAST CLINICAL INFORMATION: J 47.9. Bronchiectasis, uncomplicated. COMPARISON: Correlated to CT abdomen pelvis dated March 29, 2024. TECHNIQUE: Multidetector volumetric CT imaging of the chest was done. Axial MIP volume rendering provided. Sagittal and coronal reformatted images were obtained. This CT examination was performed using dose optimization techniques as appropriate, variously including the following: *Automated exposure control *Adjustment of mA and/or kV according to patient size (this includes techniques or standardized protocols for targeted exams where dose is matched to indication/reason for exam; i.e. extremities or head) *Use of iterative reconstruction technique DLP: 152 mGy-cm FINDINGS: BUYING INTERN: No hyperinflation. Heart silhouette size is normal. S-shaped curvature of the thoracolumbar spine. Abnormal lungs. LUNGS: There are numerous, different sizes, circular shaped, irregular thick wall, predominantly gas-filled abnormalities extending from the pulmonary hilum to the peripheral upper and lower lung lobes. Paraseptal emphysematous changes in the upper and to a lesser extent lower lung lobes. No hyperinflation. MEDIASTINUM: No mediastinal lymphadenopathy mild prominent mediastinal lymph nodes. No aneurysm, thoracic aorta. Calcified plaque in the inferior aortic arch. Heart is not enlarged. No pericardial effusion. No pneumomediastinum. No hemopericardium. Thyroid gland is not enlarged. CORONARY ARTERY CALCIFICATION: None visualized on this study. PLEURA: No pleural effusion. No pneumothorax. No calcified pleural plaques. No hemothorax. AXILLA: No lymphadenopathy. UPPER ABDOMEN: No gross abnormality. OSSEOUS STRUCTURES: Mild lower thoracic spondylosis. No acute fracture or listhesis. No lytic or blastic lesions. No acute rib fracture. Vacuum phenomenon, right adrenal humeral joint. CT/CT chest wo IV con IMPRESSION: Extensive bilateral cystic bronchiectasis with questionable superimposed inflammatory versus infectious process. Consider idiopathic, allergic/autoimmune versus congenital etiology. Fleischner guidelines were followed. Electronically signed by: Tim Sidhu MD 06/10/2025 10:35 AM [facility] Dictated By: Tim Valiente MD Signed By: <Electronically signed by Tim Vela MDin OV> 06/10/25 1035 DD/ 0910 TD/TT: 06/10/25 1019 Electrical Products Engineer: [facility] External Provider IMG CT PROCEDURES Final Result * ANCA Vasculitides (05/09/2025 2:28 PM EDT) Myeloperoxidase Antibody <1.0 [facility] Comment:Value Interpretation ----- <1.0 No Antibody Detected > or = 1.0 Antibody DetectedAutoantibodies to myeloperoxidase (MPO) are commonlyassociated with the following small-vesselvasculitides: microscopic polyangiitis,polyarteritis nodosa, Churg-Daniel syndrome,necrotizing and crescentic glomerulonephritis andoccasionally granulomatosis with polyangiitis(GPA, Matthew's). The perinuclear IFA pattern,(p-ANCA) is based largely on autoantibody tomyeloperoxidase which serves as the primary antigen.These autoantibodies are present in active disease. Proteinase-3 Antibody <1.0 [facility] Comment:Value Interpretation ----- <1.0 No Antibody Detected > or = 1.0 Antibody DetectedAutoantibodies to proteinase-3 (MA-3) are accepted ascharacteristic for granulomatosis with polyangiitis(GPA, Matthew's), and are detectable in 95% of thehistologically proven cases. The cytoplasmic IFApattern, (c-ANCA), is based largely on autoantibody toPR-3 which serves as the primary antigen.These autoantibodies are present in active disease.THIS TEST WAS PERFORMED AT:[employer] [facility] [place] [phone] DILLON MD 05/09/2025 2:28 PM EDT 05/09/2025 2:28 PM EDT Generic External Data Provider LAB BLOOD ORDERAB LES Final Result Performing Organization Address [facility] Co de Phone Number [facility] [address] [place] [phone] * Sjogren's Antibodies (SS-A,SS-B) (05/09/2025 2:28 PM EDT) Sjogren's Antibody (SS-A) <1.0 NEG <1.0 NEG [facility] Sjogren's Antibody (SS-B) <1.0 NEG <1.0 NEG [facility] Comment:THIS TEST WAS PERFOR MED AT:[employer] [facility] [place] [phone] DILLON MD 05/09/2025 2:28 PM EDT 05/09/2025 2:28 PM EDT Generic External Data Provider LAB BLOOD ORDERAB LES Final Result Performing Organization Address [facility] Co de Phone Number [facility] [address] [place] [phone] * (ABNORMAL) Respiratory Allergy Profile Region I (05/09/2025 2:28 PM EDT) Mouse Urine Proteins (E72) IgE <0.10 kU/L [facility] Class 0 [facility] Cockroach (I6) IgE 0.70(A) kU/L [facility] Class 2 [facility] Dermatophagoides farinae (D2) IgE <0.10 kU/L [facility] Class 0 [facility] Cat Dander (E1) IgE <0.10 kU/L [facility] Class 0 [facility] Comment:THIS TEST WAS PERFOR MED AT:[facility] [place] [phone] DILLON MD Dog Dander (E5) IgE <0.10 kU/L [facility] Class 0 [facility] Comment:THIS TEST WAS PERFOR MED AT:[employer] [id number] [place] [address]BWDUTGIANCARLO DILLON MD Nasim Grass (G6) IgE <0.10 kU/L [facility] Class 0 [facility] Cladosporium herbarum (M2) IgE <0.10 kU/L [facility] Class 0 [facility] Aspergillus Fumigatis (M3) IgE <0.10 kU/L [facility] Class 0 [facility] Alternaria alternata (M6) IgE <0.10 kU/L [facility] Class 0 [facility] Comment:THIS TEST WAS PERFOR MED AT:[employer] [address] [place] [address]WCSMSGIANCARLO DILLON MD [place] (t6) IgE <0.10 kU/L [facility] Class 0 [facility] Simpson (T7) IgE <0.10 kU/L [facility] Class 0 [facility] [place] Tree (T10) IgE <0.10 kU/L [facility] Class 0 [facility] Anderson (T11) IgE <0.10 kU/L [facility] Class 0 [facility] Perham (T14) IgE <0.10 kU/L [facility] Class 0 [facility] White Shon (t15) IgE <0.10 kU/L [facility] Class 0 [facility] White Winger (T70) IgE <0.10 kU/L [facility] Class 0 [facility] Common Ragweed (Short) (W1) IgE 0.11(A) kU/L [facility] Class 0/1 [facility] Mugwort (w6) IgE <0.10 kU/L [facility] Class 0 [facility] Dermatophagoides pteronyssinus (D1) IgE <0.10 kU/L [facility] Class 0 [facility] Bermuda Grass (g2) IgE <0.10 kU/L [facility] Class 0 [facility] Penicillium Notatum (M1) IgE <0.10 kU/L [facility] Class 0 [facility] Birch (T3) IgE <0.10 kU/L [facility] Class 0 [facility] Elm (t8) IgE <0.10 kU/L [facility] Class 0 [facility] Maple ([place]rit[place]) (T1) IgE <0.10 kU/L [facility] Class 0 [facility] Rough Pigweed (W14) IgE <0.10 kU/L [facility] Class 0 [facility] Sheep [place] (W18) IgE <0.10 kU/L [facility] Class 0 [facility] Allergen Comment See Below [facility] Comment: Specific Level of AllergenIGE Class [...] and its analyticalperformance characteristics have been determined by[employer]. It has not been cleared or approvedby the U.S. Food and Drug Administration. This assayhas been validated pursuant to the CLIA regulationsand is used for clinical purposes.THIS TEST WAS PERFORMED AT:[employer] [facility] [place] [phone] DILLON MD 05/09/2025 2:28 PM EDT 05/09/2025 2:28 PM EDT us Generic External Data Provider LAB BLOOD ORDERAB LES Final Result [facility] [address] [place], [place] [phone] * (ABNORMAL) CBC auto differential (05/09/2025 2:28 PM EDT) Only the most recent of2 resultswithin the time period is included. White Blood Count 8.2 4.8 - 10.8 X10*3/uL [facility] Red Blood Count 4.54(L) 4.60 - 5.80 X10*6/uL [facility] Hemoglobin 14.0 14.0 - 18.0 g/dl [facility] Hematocrit 40.6(L) 42.0 - 52.0 % [facility] Mean Corpuscular Volume 89.4 80.0 - 98.0 fL [facility] Mean Corpuscular Hemoglobin 30.8 27.0 - 33.0 pg [facility] Mean Corpuscular HGB Conc 34.5 31.0 - 36.0 g/dl [facility] Red Cell Distribution Width 14.0 11.0 - 16.0 % [facility] Platelet Count 159(L) 160 - 400 X10*3/uL [facility] Mean Platelet Volume 11.3 9.4 - 12.4 fL [facility] Neutrophils Percent Auto 63.3 45 - 73 % [facility] Imm Gran Pct Auto 0.2 0.0 - 0.4 % [facility] Lymphocytes Percent Auto 25.0 20 - 40 % [facility] Monocytes Percent Auto 9.5 2 - 11 % [facility] Eosinophils Percent Auto 1.5 0 - 4 % [facility] Basophils Percent Auto 0.5 0 - 2 % [facility] NRBC Pct Auto 0.0 0.0 - 0.2 /100WBC [facility] Neutrophils Absolute Auto 5.2 2.0 - 8.3 x10*3/uL [facility] Imm Gran Abs Auto 0.02 0.00 - 0.03 X10*3/uL [facility] Lymphocytes Absolute Auto 2.1 1.2 - 4.9 X10*3/uL [facility] Monocytes Absolute Auto 0.8 0.1 - 1.2 X10*3/uL [facility] Eosinophils Absolute Auto 0.1 0.0 - 0.4 X10*3/uL [facility] Basophils Absolute Auto 0.0 0.0 - 0.2 X10*3/uL [facility] NRBC Abs Auto 0.000 0.0 - 0.012 X10*3/uL [facility] 05/09/2025 2:28 PM EDT 05/09/2025 2:28 PM EDT us Generic External Data Provider LAB BLOOD ORDERAB LES Final Result Performing Organization Address City/[facility]/ZIP Co de Phone Number [facility] [address] [place] [phone] * Hypersensitivity Pneumonitis Screen (05/09/2025 2:28 PM EDT) Aspergillus fumigatus Ab NEGATIVE NEGATIVE [facility] Micropolyspora Faeni NEGATIVE NEGATIVE [facility] [place] Serum Abs NEGATIVE NEGATIVE [facility] Thermoactinomyces candidus NEGATIVE NEGATIVE [facility] Thermoactinomyces vulgaris Ab NEGATIVE NEGATIVE [facility] Saccharomonospora viridis Ab NEGATIVE NEGATIVE [facility] Comment:This test was develo ped and its analytical performancecharacteristics have been determined by [employer].It has not been cleared or approved by the FDA. This assayhas been validated pursuant to the CLIA regulations and isused for clinical purposes.THIS TEST WAS PERFORMED AT:[employer] [id number] [place] [phone] IBANEZ MD,PHD,CHINMAY 05/09/2025 2:28 PM EDT 05/09/2025 2:28 PM EDT us Generic External Data Provider LAB BLOOD ORDERAB LES Final Result [facility] [address] [place] [phone] * HIV-1/2 Antigen and Antibodies, Fourth Generation, with Reflexes (05/09/2025 2:28 PM EDT) Only the most recent of2 resultswithin the time period is included. HIV AB/AG Nonreactive Nonreactive [facility] Comment:HIV-1 p24 Ag and/or HIV-1/HIV-2 Ab not detected.A test result that is nonreactive does not exclude thepossibility of exposure to or infection with HIV-1 and/orHIV-2. Nonreactive results in this assay for individualswith prior exposure to HIV-1 and/or HIV-2 may be due toantigen and antibody levels that are below the limit ofdetection of this assay.The [employer] HIV Ag/Ab Combo assay result andsupplemental assay results should be interpreted inconjunction with the patient's clinical presentation,history and other laboratory results. If the results areinconsistent with clinical evidence, additional testing issuggested to confirm the result. 05/09/2025 2:28 PM EDT 05/09/2025 2:28 PM EDT us Generic External Data Provider LAB BLOOD ORDERAB LES Final Result Performing Organization Address [facility]/ZIP Co de Phone Number [facility] [address] [place] [phone] * Sed Rate by Modified [place] (05/09/2025 2:28 PM EDT) Erythrocyte Sedimentation Rate 14 0 - 15 MM/HR [facility] Comment:Patients with polycy themia and many hemoglobin abnormalitiesmay have depressed sed rates whereas patients with anemiamay have elevated sed rates. 05/09/2025 2:28 PM EDT 05/09/2025 2:28 PM EDT us Generic External Data Provider LAB BLOOD ORDERAB LES Final Result Performing Organization Address [facility] Co de Phone Number [facility] [address] [place] [phone] * Angiotensin -1- Converting Enzyme (05/09/2025 2:28 PM EDT) Angiotensin Converting Enzyme 49 9 - 67 U/L [facility] Comment:THIS TEST WAS PERFOR MED AT:[employer] [place] [address]SJNDUFZNIKOLAS GÓMEZ MD,PHD 05/09/2025 2:28 PM EDT 05/09/2025 2:28 PM EDT Generic External Data Provider LAB BLOOD ORDERAB LES Final Result Performing Organization Address [facility] Number [facility] [address] [place] [phone] * (ABNORMAL) Immunoglobulins, Quantitative, IgA, IgG, IgM (05/09/2025 2:28 PM EDT) Pathologist [facility] IMMUNOGLOBULIN G 2259(A) 600 - 1640 mg/dL [facility] IMMUNOGLOBULIN A 474(A) 47 - 310 mg/dL [facility] Immunoglobulin M 97 50 - 300 mg/dL [facility] Comment:THIS TEST WAS PERFOR MED AT:[employer] [address] [id number] DILLON MD 05/09/2025 2:28 PM EDT 05/09/2025 2:28 PM EDT us Generic External Data Provider LAB BLOOD ORDERAB LES Final Result Performing Organization Address [facility] de Phone Number [facility] [address] [place] [phone] * (ABNORMAL) ELIZABETH Screen,IFA, with Reflex to Titer and Pattern (05/09/2025 2:28 PM EDT) Anti Nuclear Antibody Screen POSITIV E(A) NEGATIVE [facility] Comment:ELIZABETH IFA is a first l ine screen for detecting thepresence of up to approximately 150 autoantibodies invarious autoimmune diseases. A positive ELIZABETH IFA resultis suggestive of autoimmune disease and reflexes totiter and pattern. Further laboratory testing may beconsidered if clinically indicated.For additional information, please refer tohttp://education.kingsky/faq/TJZ535(This link is being provided for informational/educational purposes only.) ELIZABETH Titer 1:80(A) titer [facility] Comment:A low level ELIZABETH tite r may be present in pre-clinicalautoimmune diseases and normal individuals. Reference Range <1:40 Negative 1:40-1:80 Low Antibody Level >1:80 Elevated Antibody Level ELIZABETH Pattern Nuclear , Homogen eous(A) [facility] Comment:Homogeneous pattern is associated with systemic lupuserythematosus (SLE), drug-induced lupus and juvenileidiopathic arthritis.AC-1: HomogeneousInternational Consensus on ELIZABETH Patterns(https://doi.org/10.1515/gfek-8597-1761)THIS TEST WAS PERFORMED AT:[employer] [facility] [place] [phone] DILLON MD ELIZABETH Titer 2 TNP [facility] ELIZABETH Pattern 2 TNP [facility] ELIZABETH TITER 3 TNP [facility] ELIZABETH PATTERN 3 NDP [facility] 05/09/2025 2:28 PM EDT 05/09/2025 2:28 PM EDT us Generic External Data Provider LAB BLOOD ORDERAB LES Final Result [facility] [address] [place] [phone] * Immunoglobulin E (05/09/2025 2:28 PM EDT) Pathologist [facility] Immunoglobulin E 6 <FG=279 kU/L [facility] 05/09/2025 2:28 PM EDT 05/09/2025 2:28 PM EDT us Generic External Data Provider LAB BLOOD ORDERAB LES Final Result Performing Organization Address [facility] de Phone Number [facility] [address] [place] [phone] * (ABNORMAL) Basic Metabolic Panel (05/09/2025 2:28 PM EDT) Sodium 141 135 - 145 mmol/L [facility] Potassium 3.9 3.3 - 5.1 mmol/L [facility] Chloride 106 96 - 108 mmol/L [facility] Carbon Dioxide 28 22 - 29 mmol/L [facility] Anion Gap 11(L) 12 - 20 [facility] Urea Nitrogen (BUN) 18(H) 9 - 16 mg/dL [facility] Creatinine, Serum 1.04 0.5 - 1.4 mg/dL [facility] Estimated Glomerular Filt Rate >60 [facility] Comment:Chronic Kidney Disea se: Estimated GFR < 60 mL/min/1.00l0Lxngzu Kidney Disease: Estimated GFR < 15 mL/min/1.73m2 Glucose 108 60 - 115 mg/dL [facility] Calcium 8.9 8.4 - 10.2 mg/dL [facility] 05/09/2025 2:28 PM EDT 05/09/2025 2:28 PM EDT us Generic External Data Provider LAB BLOOD ORDERAB LES Final Result Performing Organization Address [facility] Co de Phone Number [facility] [address] [place] [phone] * Gram Stain Result (05/09/2025 1:22 PM EDT) 05/09/2025 1:22 PM EDT 05/09/2025 2:27 PM EDT Comment:Sputum Narrative [facility] - 05/13/2025 8:34 AM EDT Gram stain results: No polys 3+ Gram-negative rods Sputum Culture BAP Sputum Culture 3+ Mixed respiratory deyanira. Haemophilus parainfluenzae B-Lac Susc (reported) Beta-lactamase not produced; suggests PEN/AMP susceptibility Quant Org ID 4+ Haemophilus influenzae B-Lac Susc (reported) Beta-lactamase was produced; suggests PEN/AMP resistance Quant Org ID 4+ Specimen Source: Sputum [employer] External Data Provider HISTORICAL/NON OR DERABLE LABS Final Result Performing Organization Address [facility]/ZIP Co de Phone Number [facility] [address] [place] [phone] * Acid-Fast Smear (05/09/2025 1:22 PM EDT) 05/09/2025 1:22 PM EDT 05/09/2025 2:27 PM EDT Comment:Sputum Narrative [facility] - 05/11/2025 11:19 AM EDT Acid-Fast Smear Acid-Fast Smear Acid-Fast Smear No acid-fast bacilli seen. Test performed by: [employer] [address] [place] [address], 3rd floor, [place] [address] Director: Giancarlo Dillon MD CLIA: [id number] Acid-Fast Culture null Acid-Fast Culture null Acid-Fast Culture null Acid-Fast Culture null Acid-Fast Culture null Acid-Fast Culture null Acid-Fast Culture null Acid-Fast Culture null Acid-Fast Culture null Acid-Fast Culture null Acid-Fast Culture null Specimen Source: Sputum [employer] External Data Provider LAB MICROBIOLOGY - GENERAL ORDERABLES Final Result Performing Organization Address [facility] Co de Phone Number [facility] [address] [place] [phone] * T-SPOT??.TB (04/15/2025 3:22 PM EDT) [facility] T Spot TB Negative Negative [facility] Comment:A negative test resu lt does [...] as aquantitative test. TS PANEL A 1 [facility] TS PANEL B 1 [facility] Negative Control Passed [facility] Positive Control Passed [facility] Comment:For additional infor antonio, please refer tohttp://education.Yoolink/faq/VYF592(This link is being provided for informational/educational purposes only.)THIS TEST WAS PERFORMED AT:[employer] [id number] [place] [address]AKZTBKJNIKOLAS GÓMEZ MD,PHD 04/15/2025 3:22 PM EDT 04/15/2025 3:57 PM EDT us Sharon Garza MANAGER DEPARTMENT LAB BLOOD ORDERABLES Final Res ult [facility] [address] [place] [phone] * (ABNORMAL) Liver Fibrosis (HCV), FibroTest-ActiTest Panel (04/15/2025 3:22 PM EDT) Liver Fibrosis Score 0.88 [facility] Liver Fibrosis Stage F4 [facility] Liver Fibrosis Interpretation SEE NOTE [facility] Comment:severe fibrosisFibro Test Score (f) Metavir Score f>=0 and f<=0.21 : F0 (no fibrosis)f>0.21 and f<=0.27 : F0-F1 (no fibrosis)f>0.27 and f<=0.31 : F1 (minimal fibrosis)f>0.31 and f<=0.48 : F1-F2 (minimal fibrosis)f>0.48 and f<=0.58 : F2 (moderate fibrosis)f>0.58 and f<=0.72 : F3 (advanced fibrosis)f>0.72 and f<=0.74 : F3-F4 (advanced fibrosis)f>0.74 and f<=1.00 : F4 (severe fibrosis) Nec Inflam Act Score 0.72 [facility] Nec Inflam Act Grade A3 [facility] Nec Inflam Act Interpretation SEE NOTE [facility] Comment:severe activityActiT est Score (a) Metavir Score a>=0 and a<=0.17 : A0 (no activity)a>0.17 and a<=0.29 : A0-A1 (no activity)a>0.29 and a<=0.36 : A1 (minimal activity)a>0.36 and a<=0.52 : A1-A2 (minimal activity)a>0.52 and a<=0.60 : A2 (significant activity)a>0.60 and a<=0.62 : A2-A3 (significant activity)a>0.62 and a<=1.00 : A3 (severe activity) EBF-Yafxr-0-Macroglo bulin 464(A) 106 - 279 mg/dL [facility] FIB-Haptoglobin 40(A) 43 - 212 mg/dL [facility] FIB-Apolipoprotein A1 127 94 - 176 mg/dL [facility] FIB-Total Bilirubin 0.6 0.2 - 1.2 mg/dL [facility] FIB-GGT 140(A) 3 - 95 U/L [facility] FIB-ALT 89(A) 9 - 46 U/L [facility] Reference ID [id number] [facility] Footnote SEE NOTE [facility] Comment: The reliability of results is [...] and C.The performance characteristics have been determined byZonit Structured SolutionsOlymp[facility] Center. Ithas not been cleared or approved by the U.S. Food and DrugAdministration. Performance characteristics refer to theanalytical performance of the test.[employer], [employer], the associated logo, [employer] and all associated [employer] pereira are theregistered trademarks of [employer]. All third partymarks - (R) and (TM) - are the property of their respectiveowners. (C) [id number] [employer]. Allrights reserved.THIS TEST WAS PERFORMED AT:[employer] [id number] [place] [address]EUNGYSTEF IBANEZ MD,PHD,CHINMAY 04/15/2025 3:22 PM EDT 04/15/2025 4:03 PM EDT us Sharon Garza MANAGER DEPARTMENT LAB BLOOD ORDERABLES Final Res ult [facility] [address] [place] [phone] * Hepatitis A Antibody, Total (04/15/2025 3:22 PM EDT) Hepatitis A Antibody IgG REACTIVE Nonreactive [facility] Comment:The presence of IgG anti-HAV implies past HAV infection(recent or distant) or vaccination against HAV. 04/15/2025 3:22 PM EDT 04/15/2025 4:03 PM EDT [facility] LAB BLOOD ORDERABLES Final Res ult Performing Organization Address [facility] Co de Phone Number [facility] [address] [place] [phone] * Hepatitis C Viral RNA, Genotype, LiPA (04/15/2025 3:22 PM EDT) Pathologist [facility] Hepatitis C Genotype 1a Not Detected [facility] Comment:The methods used in this test are RT-PCR and DNASequencing of the 5' UTR and core region of the HCVgenome.For additional information, please refer tohttp://education.RawData.Immunexpress/faq/HCVGenotyping(This link is being provided for informational/educational purposes only.)This test was developed and its analytical performancecharacteristics have been determined by [employer]. It has not been cleared or approved bythe FDA. The assay has been validated pursuant to theIA regulations and is used for clinical purposes.THIS TEST WAS PERFORMED AT:[employer] [place] [address]IGNFBIMNIKOLAS GÓMEZ MD,PHD 04/15/2025 3:22 PM EDT 04/15/2025 4:03 PM EDT [facility] LAB BLOOD ORDERABLES Final Res ult Performing Organization Address [facility]/ZIP Co de Phone Number [facility] [address] [place] [phone] * (ABNORMAL) Prothrombin Time-INR (04/15/2025 3:22 PM EDT) Pathologist [facility] Prothrombin Time 12.7(H) 10.9 - 12.4 SEC [facility] INTERNATIONAL NORM RATIO 1.1 0.9 - 1.1 [facility] Comment:INTERNATIONAL NORMAL IZED RATIO (INR) REFERENCE [...] EDT 04/15/2025 3:57 PM EDT us Sharon ROUSSEAU LAB BLOOD ORDERABLES Final Res ult Performing Organization Address City/State/[facility] Co de Phone Number [facility] [address] [place] [phone] * XR Chest 2 Views (04/13/2025 10:40 AM EDT) Anatomical Region Laterality Modality Chest Radiographic Jo ging 04/13/2025 10:4 0 AM EDT Narrative 04/13/2025 11:05 AM EDT [address] [address] XRay Report Signed Patient: Blake Norris MR#: [id number] 48 : 1980 Acct:[id number] Age/Sex: 44 / M ADM Date: 04/13/25 Loc: [facility] Attending Dr: Sharon ROUSSEAU Ordering Physician: Sharon Garza Date of Service: 04/13/25 Procedure(s): XR chest 2V Accession Number(s): [id number] cc: Sharon Garza Reason for Exam: coughing [...] 04/13/25 1102 DD/ 1040 TD/TT: 04/13/25 1050 Electrical Products Engineer: Procedure Note Donotuseinterpreter, Image - 04/13/[address] [address] XRay Report Signed Patient: Lucia Norris#: [id number] 48 : 1980Acct:[id number] Age/Sex: 44 / MADM Date: 04/13/25 Loc: [facility] Attending Dr: Sharon ROUSSEAU Ordering Physician: Sharon Garza Date of Service: 04/13/25 Procedure(s): XR chest 2V Accession Number(s): [id number] cc: Sharon Garza Reason for Exam: coughing [...] 04/13/25 1102 DD/ 1040 TD/TT: 04/13/25 1050 Electrical Products Engineer: us Sharon [facility] MANAGER DEPARTMENT IMG XR PROCEDURES Final Result * Chlamydia/N. Gonorrhoeae, PCR, Urine (03/29/2025 11:55 AM EDT) CT PCR, Urine NOT DETECTED Not Detect. [facility] Comment:A not detected test result does [...] NG PCR, Urine NOT DETECTED Not Detect. [facility] Comment:A not detected test result does [...] 03/29/2025 1:19 PM EDT us Sharon Garza [facility] LAB URINE ORDERABLES Final Res ult [facility] [address] [place] [phone] * (ABNORMAL) Vitamin D, 25-Hydroxy, Total, Immunoassay (03/29/2025 11:55 AM EDT) Vitamin D 25-OH Total 26.9(L) >30 ng/mL [facility] Comment: Health Based Reference Values*< 20 ng/mL Gjdmfomhs75-49 ng/mL Insufficient> 30 ng/mL Sufficient*Erin PULIDO. N [...] 11:55 AM EDT 03/29/2025 1:04 PM EDT [facility] LAB BLOOD ORDERABLES Final Res ult Performing Organization Address [facility] Co de Phone Number [facility] [address] [place] [phone] * (ABNORMAL) Hepatitis C Viral RNA, Quantitative, Real-Time PCR (03/29/2025 11:55 AM EDT) Pathologist [facility] Hepatitis C Viral Load [id number](A ) NOT DETECTED IU/mL [facility] HCV Log PCR 6.54(A) NOT DETECTED Log IU/mL [facility] Comment:For additional infor antonio, please refer tohttp://education.Yoolink/faq/DOX92l0(This link is being provided for informational/educational purposes only.)THIS TEST WAS PERFORMED AT:[employer] [place] [phone] DILLON MD 03/29/2025 11:5 5 AM EDT 03/30/2025 10:37 AM EDT [facility] LAB BLOOD ORDERABLES Final Res ult Performing Organization Address [facility] Co de Phone Number [facility] [address] [place] [phone] * (ABNORMAL) Hepatitis C Antibody with Reflex to HCV, RNA, Quantitative, Real- Time PCR (03/29/2025 11:55 AM EDT) Pathologist [facility] Hepatitis C Antibody Reactive( A) Nonreactive [facility] Comment:Presumptive evidence of antibodies to HCV. Blood Venous blood specimen / Unknown 03/29/2025 11:55 AM EDT 03/29/2025 1:04 PM EDT Sharon [facility] LAB BLOOD ORDERABLES Final Res ult Performing Organization Address [facility] Co de Phone Number [facility] [address] [place] [phone] * Hepatitis B surface antigen, EIA (03/29/2025 11:55 AM EDT) Pathologist [facility] Hepatitis B Surface Ag Negative Negative [facility] Blood Venous blood specimen / Unknown 03/29/2025 11:55 AM EDT 03/29/2025 1:04 PM EDT [facility] LAB BLOOD ORDERABLES Final Res ult Performing Organization Address [facility] Co de Phone Number [facility] [address] [place] [phone] * Hepatitis B Core Antibody, Total (03/29/2025 11:55 AM EDT) [facility] Hepatitis B Core Antibody Nonreactive Nonreactive [facility] Blood Venous blood specimen / Unknown 03/29/2025 11:55 AM EDT 03/29/2025 1:04 PM EDT [facility] LAB BLOOD ORDERABLES Final Res ult Performing Organization Address [facility] Co de Phone Number [facility] [address] [place] [phone] * Hepatitis B Surface Antibody, Qualitative (03/29/2025 11:55 AM EDT) Pathologist [facility] ~Hepatitis B Surface Antibody REACTIVE Nonreactive [facility] Comment:REACTIVE: > 11.99 mI U/mL Blood Venous blood specimen / Unknown 03/29/2025 11:55 AM EDT 03/29/2025 1:04 PM EDT [facility] LAB BLOOD ORDERABLES Final Res ult Performing Organization Address [facility] Co de Phone Number [facility] [address] [place] [phone] * TSH (03/29/2025 11:55 AM EDT) Thyroid Stimulating Hormone 3.62 0.32 - 4.0 uIU/mL [facility] Comment:Note: A sustained TS H level above 2.5 uIU/mL may warrant further investigation. TSH 3rd Generation ([facility]) Blood Venous blood specimen / Unknown 03/29/2025 11:55 AM EDT 03/29/2025 1:04 PM EDT [facility] LAB BLOOD ORDERABLES Final Res ult Performing Organization Address [facility] Co de Phone Number [facility] [address] [place] [phone] * PSA,Total (03/29/2025 11:55 AM EDT) Prostate Specific Antigen 0.68 <0.05 - 4.0 ng/mL [facility] Comment:PSA methodology: Abb chuyita Alijustinty i ChemiluminescentMicroparticle Immunoassay (CMIA) Blood Venous blood specimen / Unknown 03/29/2025 11:55 AM EDT 03/29/2025 1:04 PM EDT [facility] LAB BLOOD ORDERABLES Final Res ult Performing Organization Address [facility] Co de Phone Number [facility] [address] [place] [phone] * Hemoglobin A1c (03/29/2025 11:55 AM EDT) Hemoglobin A1c 5.0 <6.0 % [facility] Comment:Hemoglobin A1C Refer ence Range Adults: 4.8 - 6.0 % Non diabetic: < 6.0 % Goal: < 7.0 %Additional Action Suggested: > 8.0 %Note: Hemoglobin A1c results are invalid for patients with abnormal amounts of HbF. Blood transfusions may impact the HbA1c concentration in the patient sample. Estimated Average Glucose 97 mg/dL [facility] Comment:eAG = Estimated ave rage glucose which is %A1C expressed asaverage glucose, using the formula of the S1F-VjabcxwYhlmdrf Glucose study (ADAG), Diabetes Care, Vol.31,#8,Feb. 2007 Blood Venous blood specimen / Unknown 03/29/2025 11:55 AM EDT 03/29/2025 1:04 PM EDT us Sharon Garza [facility] LAB BLOOD ORDERABLES Final Res ult [facility] [address] [place] [phone] * (ABNORMAL) Lipid Panel, Standard (03/29/2025 11:55 AM EDT) Triglycerides 175(H) <150 mg/dL [facility] Comment:Desirable Triglyceri de: less than 150 mg/dLBorderline High Triglyceride 150-199 mg/dLHigh Triglyceride: 200-499 mg/dLVery High Triglyceride: greater than or equal to 5OO mg/dL Cholesterol 127 <200 mg/dL [facility] Comment:Desirable Cholestero l: less than 200 mg/dLBorderline High Cholesterol: 200-239 mg/dLHigh Cholesterol: greater than 239 mg/dL LDL Cholesterol Calculated 56 <100 mg/dL [facility] Comment:Desirable LDL: less than 100 mg/dLNear Optimal/Above Optimal LDL: 110- 129 mg/dLBorderline High LDL: 130-159 mg/dLHigh LDL: 160-189 mg/dLVery High LDL: greater than or equal to 190 mg/dL HDL Cholesterol 36(L) >40 mg/dL [facility] Comment:Desirable HDL: great er than 40 mg/dL Note: This HDL assay may give artificially low results in patients with liver disease. Blood Venous blood specimen / Unknown 03/29/2025 11:55 AM EDT 03/29/2025 1:04 PM EDT us Sharon Garza MANAGER DEPARTMENT LAB BLOOD ORDERABLES Final Res ult [facility] [address] [place], [place] [phone] * (ABNORMAL) Comprehensive Metabolic Panel (03/29/2025 11:55 AM EDT) Sodium 140 135 - 145 mmol/L [facility] Potassium 4.5 3.3 - 5.1 mmol/L [facility] Chloride 102 96 - 108 mmol/L [facility] Carbon Dioxide 31(H) 22 - 29 mmol/L [facility] Anion Gap 12 12 - 20 [facility] Urea Nitrogen (BUN) 15 9 - 16 mg/dL [facility] Creatinine, Serum 0.88 0.5 - 1.4 mg/dL [facility] Estimated Glomerular Filt Rate >60 [facility] Comment:Chronic Kidney Disea se: Estimated GFR < 60 mL/min/1.51i3Sfhsus Kidney Disease: Estimated GFR < 15 mL/min/1.73m2 Glucose 80 60 - 115 mg/dL [facility] Calcium 9.1 8.4 - 10.2 mg/dL [facility] Bilirubin, Total 1.0 0.0 - 1.0 mg/dL [facility] Aspartate Amino Transferase 174(H) 5 - 37 U/L [facility] Alanine Aminotransferase 152(H) 0 - 40 U/L [facility] Total Protein 8.2(H) 6.5 - 8.0 g/dL [facility] Albumin Level 3.9 3.5 - 5.0 g/dL [facility] Alkaline Phosphatase 158(H) 39 - 117 U/L [facility] Blood Venous blood specimen / Unknown 03/29/2025 11:55 AM EDT 03/29/2025 1:04 PM EDT Sharon ROUSSEAU LAB BLOOD ORDERABLES Final Res ult [facility] [address] [place] [phone] from Last 3 Months Insurance [facility] 3 Care Teams Hand Silvering Supervisor Relationship Specialty Start Date End Date Sharon Garza FNP [address] [place] [address] PCP - General Family Medicine 03/25/25
== END 2025-06-27 07:52 | disposition home or self-care (01) ==
LOC: HO.US 07:51
PROVIDERS: PCP Nurse Practitioner Family; Visit Provider Family Medicine
DX: B19.20 Unspecified viral hepatitis C without hepatic coma (principal)
CPT/HCPCS: 76700; 76981

== ENCOUNTER → 2025-06-27 07:55 | Outpatient (BNV) | payer OTHER, SELFPAY | PROVIDERS: PCP Nurse Practitioner Family; Visit Provider Radiology Diagnostic Radiology | DX: B19.20 Unspecified viral hepatitis C without hepatic coma (principal); K76.0 Fatty (change of) liver, not elsewhere classified; R16.0 Hepatomegaly, not elsewhere classified | CPT/HCPCS: 76700 ==

== ENCOUNTER 2025-07-01 09:49 | Outpatient (AMB) | payer OTHER, SELFPAY ==
--- NOTE | 2025-07-01 09:59 | MHC.OFFVIS ---
Vital Signs 07/01/25 10:00 Height 5 ft 7 in Weight 177 lb 7.554 oz BMI 27.8 BP 120/70 Blood Pressure Location Lt brachial Position Sitting Pulse 63 Pulse Source Pulse Oximeter Pulse Oximetry (%) 95 Oxygen Delivery Method Room Air Intake Visit Reasons: Bronchiectasis Allergies No Known Allergies Allergy (Verified 07/01/25 10:02) HPI Comments Details: The patient is a 44-year-old gentleman with a normal CT scan of the chest. Apparently back a year ago he was having some chest discomfort. Unfortunately lost his insurance so he could not follow-up with medical advice. The discomfort is mainly in the right lower chest area. More recently he had an episode went to the ER. Now with insurance. He was able to get an x-ray. It was noted that he had a cystic like area. I did personally reviewed the x-ray. He also had a CT scan of the abdomen from 2023 which I personally reviewed demonstrating significant cystic lung disease with some areas of bronchiectasis and airspace disease in the left base. The patient also has significant bronchitis. He has major complaint is cough chest congestion. Sometimes hemoptysis. And he has shortness of breath with chest tightness and wheezing. He has been using his inhalers with partial improvement. When he did come to the ER she was given antibiotics and he did feel better but he felt like the antibiotic courses too short. 07/01/2025 the patient is here for pulmonary follow-up visit. He started feeling better after starting the Augmentin. His sputum culture was positive for Haemophilus. The patient also completed a course of prednisone. He has been using the nebulizer as needed. He continues on the Breo which he has been effective. Although he still feels very congested now that he completed the Augmentin. Feels like he needs another round. We did review his blood work. No evidence of any significant connective tissue diseases. Although his ELIZABETH was slightly elevated. The patient is immunoglobulins were within normal limits actually had likely finding enough infection. The patient also had a CT scan of the chest personally by me demonstrating extensive bronchiectatic changes. In addition to cystic changes. The patient does have a daughter so therefore he has further. Will go ahead and request a sweat test to assess him for cystic fibrosis at this time. He already has a percussion valve. Will go ahead and request a percussion vest and start him on hypertonic saline to help him with mucus clearance. We did talk about the importance of maintaining airway clearance. In addition to that will start him on azithromycin 3 times a week for his maintenance dose. He will need to get an EKG during the next visit. Plan to do a bronchoscopy at this time. And the patient will follow-up with [facility] for the sweat test. FOR[facility]LY [facility], [facility] Medical History (Updated 05/09/25 @ 20:22 by Zohaib Bowers MD) Allergies Asthma Cystic-bullous disease of lung Bronchiolectasis Social History Alcohol intake: former Patient Tobacco Use Status: Former Tobacco user Review of Systems Const Denies fever(s) Eyes Reports no additional complaints ENT Reports nasal congestion Card Reports chest pain and Reports dyspnea on exertion Resp Reports chest congestion, Reports cough, Reports hemoptysis, Reports dyspnea on exertion and Reports wheezing GI Reports no additional complaints Musc Reports no additional complaints Skin/Breast Denies rash Neuro Reports no additional complaints Endo Reports no additional complaints Brian/Lymph Reports no additional complaints Aller/Immun Reports wheezing Physical Exam Vital Signs: Last Vital Signs Pulse 63 07/01/25 10:00 BP 120/70 07/01/25 10:00 Pulse Ox 95 07/01/25 10:00 Oxygen Delivery Method Room Air 07/01/25 10:00 BMI result Body Mass Index 27.8 Const General: comfortable Orientation/consciousness: patient oriented x3 HEENT Head: Yes normocephalic Neck Neck: Yes supple Chest Chest palpation & inspection: normal inspection of the chest Resp Effort & Inspection: normal respiratory effort and prolonged expiratory phase Auscultation: rhonchi and diminished lung sounds Cardio Heart sounds: S1 normal heart sound present and S2 normal heart sound present GI Palpation (GI): Soft to palpation Skin General skin exam: no rashes or lesions noted Neuro General: patient oriented x3 Extrem General: Yes no clubbing, cyanosis or edema Results Reviewed Results Reviewed: Assessment & Plan Assessment & Plan (1) Bronchiolectasis: Code(s): J47.9 - Bronchiectasis, uncomplicated Category: Medical (2) Cystic-bullous disease of lung: Code(s): J98.4 - Other disorders of lung Category: Medical (3) Asthma: Code(s): J45.909 - Unspecified asthma, uncomplicated Category: Medical Qualifiers: Asthma complication type: with acute exacerbation Asthma persistence: persistent Asthma severity: moderate Qualified Code(s): J45.41 - Moderate persistent asthma with (acute) exacerbation (4) Allergies: Code(s): T78.40XA - Allergy, unspecified, initial encounter Category: Medical Qualifiers: Encounter type: initial encounter Qualified Code(s): T78.40XA - Allergy, unspecified, initial encounter Plan continue Breo GASPER as needed start Azithrmomycin MWF Nebulizer therapy albuterol, will add hypertonic saline CPT with acapella valve, will add percussion vest plan for bronchscopy sweat testing to r/o CF F/U 2-3 months Medications: New sodium chloride 3% 4 mL inhalation BID 240 mL 11RF 30 days azithromycin Take 1 tablet on Friday/Friday/Friday 250 mg PO 3XW 12 tabs 6RF 28 days K21.9 - Gastro-esophageal reflux disease without esophagitis Refilled prednisone PO daily; Take 2 tabs daily x 5 days, then 1 tablet daily x 5 days 15 tabs 0RF 10 days Coding Level of Care Code Est Pt Level 5 (50368) Diagnoses Bronchiolectasis J47.9 Cystic-bullous disease of lung J98.4 Moderate persistent asthma with acute exacerbation J45.41 Asthma complication type: with acute exacerbation Asthma persistence: persistent Asthma severity: moderate Allergy, initial encounter T78.40XA Encounter type: initial encounter Time Spent (min) 45
[2025-07-01 10:00] VITALS: BP 120/70; PULSE 63; O2SAT 95; BMI 27.8
== END 2025-07-01 10:26 | disposition home or self-care (01) ==
LOC: HO.HPS 09:49
PROVIDERS: PCP Nurse Practitioner Family; Visit Provider Hospitalist
DX: J47.9 Bronchiectasis, uncomplicated (principal); J98.4 Other disorders of lung; J45.41 Moderate persistent asthma with (acute) exacerbation; T78.40XA Allergy, unspecified, initial encounter
CPT/HCPCS: 99215

== ENCOUNTER → 2025-07-01 09:49 | Outpatient (BNVA) | payer OTHER, SELFPAY | PROVIDERS: PCP Nurse Practitioner Family; Visit Provider Hospitalist | DX: J45.41 Moderate persistent asthma with (acute) exacerbation (principal); J47.9 Bronchiectasis, uncomplicated; J98.4 Other disorders of lung; T78.40XA Allergy, unspecified, initial encounter; K21.9 Gastro-esophageal reflux disease without esophagitis; Z79.51 Long term (current) use of inhaled steroids | CPT/HCPCS: 99212 ==